=== PATIENT | female | born 1935 | race Caucasian/White ===

== ENCOUNTER → 2023-05-12 09:14 | Outpatient (REF) | payer MEDICARE, OTHER, SELFPAY ==
[2023-05-12 11:07] LABS: Albumin 4.6 g/dl (3.5-5.0); Blood Urea Nitrogen 34 mg/dl (7-17); Calcium 9.6 mg/dl (8.4-10.2); Carbon Dioxide 26 mmol/L (22-30); Glucose 95 mg/dl (70-99); Phosphorus 4.4 mg/dl (2.5-4.5); Potassium 4.6 mmol/L (3.5-5.1); Sodium 137 mmol/L (135-145); eGFR 44.36
[2023-05-12 11:14] LABS: Chloride 100 mmol/L (98-107)
[2023-05-12 11:22] LABS: Protein/creatinine Ratio 0.3; Urine Protein 15 mg/dl
== END ==
LOC: REG 09:14
PROVIDERS: ATTENDING PHYSICIAN Internal Medicine; FAMILY PHYSICIAN Internal Medicine
DX: D50.9 Iron deficiency anemia, unspecified (principal); N17.9 Acute kidney failure, unspecified; D63.8 Anemia in other chronic diseases classified elsewhere
CPT/HCPCS: 36415; 80069; 82570; 84156

== ENCOUNTER → 2023-05-23 07:16 | Outpatient (REF) | payer MEDICARE, OTHER, SELFPAY ==
[2023-05-23 08:43] LABS: Erythrocyte Sed Rate 4 mm/hour (0-20)
[2023-05-23 08:53] LABS: % Eosinophils 3.2 % (0-6); % Immature Granulocytes 0.6 % (0-0.5); % Lymphocytes 14.5 % (20.5-51.1); % Monocytes 5.5 % (1.7-9.3); % Neutrophils 75.2 % (42.2-75.2); Absolute Basophils 0.1 10^3/uL (0-0.2); Absolute Eosinophils 0.3 10^3/uL (0-0.7); Absolute Immature Granulocytes 0.1 10^3/uL (0-0.05); Absolute Lymphocytes 1.3 10^3/uL (1.2-3.4); Absolute Monocytes 0.5 10^3/uL (0.1-0.6); Absolute Neutrophils 6.7 10^3/uL (1.4-6.5); Hematocrit 36.4 % (37.0-47.0); Hemoglobin 11.7 g/dL (12.0-16.0); Mean Corp Hgb Conc. 32.1 g/dL (33.0-37.0); Mean Corpuscular Hgb 26.7 pg (27.0-31.0); Mean Corpuscular Volume 83.1 fL (81.0-99.0); Mean Platelet Volume 8.9 fL (7.4-10.4); Nucleated Red Blood Cells % 0 %; Platelet Count 320 10^3/uL (130-400); Red Blood Cell Count 4.38 10^6/uL (4.20-5.40); Red Cell Dist. Width 13.4 % (11.5-14.5)
[2023-05-23 09:04] LABS: Microalbumin/creatinine Ratio 23.3 mg/g
[2023-05-23 09:07] LABS: ALT (SGPT) 18 U/L (0-35); AST (SGOT) 29 U/L (14-36); Albumin 4.7 g/dl (3.5-5.0); Alkaline Phosphatase 72 U/L (38-126); Blood Urea Nitrogen 32 mg/dl (7-17); Calcium 9.7 mg/dl (8.4-10.2); Carbon Dioxide 29 mmol/L (22-30); Chloride 101 mmol/L (98-107); Glucose 100 mg/dl (70-99); HDL Cholesterol 81 mg/dl; LDL Cholesterol, Calculated 141 mg/dl; Potassium 4.6 mmol/L (3.5-5.1); Sodium 136 mmol/L (135-145); Total Bilirubin 0.5 mg/dl (0.2-1.3); Total Cholesterol 248 mg/dl (50-199); Total Protein 7.5 g/dl (6.3-8.2); Triglyceride 130 mg/dl (10-149); Very Low Density Lipoprotein 26 mg/dl (0-30); eGFR 49.24
[2023-05-23 09:08] LABS: Glycohemoglobin (HgbA1c) 6.2 % (4.0-5.6)
== END ==
LOC: REG 07:16
PROVIDERS: ATTENDING PHYSICIAN Internal Medicine
DX: E11.22 Type 2 diabetes mellitus with diabetic chronic kidney disease (principal); N18.31 Chronic kidney disease, stage 3a; D63.8 Anemia in other chronic diseases classified elsewhere; G47.33 Obstructive sleep apnea (adult) (pediatric); M35.3 Polymyalgia rheumatica; K58.1 Irritable bowel syndrome with constipation
CPT/HCPCS: 36415; 80053; 80061; 82043; 82570; 83036; 85025; 85652

== ENCOUNTER → 2023-08-01 10:48 | Outpatient (REF) | payer MEDICARE, OTHER, SELFPAY ==
[2023-08-01 11:47] LABS: % Eosinophils 2.9 % (0-6); % Immature Granulocytes 0.3 % (0-0.5); % Lymphocytes 24.4 % (20.5-51.1); % Monocytes 6.4 % (1.7-9.3); Absolute Basophils 0.1 10^3/uL (0-0.2); Absolute Eosinophils 0.2 10^3/uL (0-0.7); Absolute Lymphocytes 1.4 10^3/uL (1.2-3.4); Absolute Monocytes 0.4 10^3/uL (0.1-0.6); Absolute Neutrophils 3.7 10^3/uL (1.4-6.5); Hematocrit 38.1 % (37.0-47.0); Hemoglobin 11.9 g/dL (12.0-16.0); Mean Corp Hgb Conc. 31.2 g/dL (33.0-37.0); Mean Corpuscular Hgb 26.2 pg (27.0-31.0); Mean Corpuscular Volume 83.9 fL (81.0-99.0); Mean Platelet Volume 8.6 fL (7.4-10.4); Nucleated Red Blood Cells % 0 %; Platelet Count 306 10^3/uL (130-400); Red Blood Cell Count 4.54 10^6/uL (4.20-5.40); Red Cell Dist. Width 13.8 % (11.5-14.5); White Blood Cell Count 5.8 10^3/uL (4.8-10.8)
[2023-08-01 12:50] LABS: Protein/creatinine Ratio 0.8; Urine Protein 14 mg/dl
[2023-08-01 12:54] LABS: Iron 95 ug/dl (37-170)
[2023-08-01 12:55] LABS: Microalbumin, Random Urine 1.3 mg/dl (0.6-1.7)
[2023-08-01 13:03] LABS: Percent Saturation 28 % (20-50); Total Iron Binding Capacity 338 ug/dl (265-497)
[2023-08-01 13:18] LABS: Ferritin 34.5 ng/ml (11.1-264.0)
== END ==
LOC: RAD 10:48
PROVIDERS: ATTENDING PHYSICIAN Internal Medicine; FAMILY PHYSICIAN Internal Medicine; OTHER PHYSICIAN Internal Medicine; REFERRING PHYSICIAN Nurse Practitioner
DX: M25.50 Pain in unspecified joint (principal); M25.60 Stiffness of unspecified joint, not elsewhere classified; N18.31 Chronic kidney disease, stage 3a; D64.9 Anemia, unspecified
CPT/HCPCS: 36415; 73130; 82043; 82570; 82728; 83540; 83550; 84156; 85025

== ENCOUNTER → 2023-08-04 12:46 | Outpatient (REF) | payer MEDICARE, OTHER, SELFPAY ==
[2023-08-04 14:54] LABS: C-Reactive Protein < 5.00 mg/L (0.0-10.00)
[2023-08-04 15:07] LABS: Erythrocyte Sed Rate 15 mm/hour (0-20)
[2023-08-07 08:56] LABS: CCP Antibody IgG/IgA 29 Units (0-19)
== END ==
LOC: REG 12:46
PROVIDERS: ATTENDING PHYSICIAN Internal Medicine; FAMILY PHYSICIAN Internal Medicine
DX: M25.50 Pain in unspecified joint (principal); M25.60 Stiffness of unspecified joint, not elsewhere classified
CPT/HCPCS: 36415; 85652; 86140; 86200; 86430

== ENCOUNTER → 2023-08-10 11:45 | Outpatient (REF) | payer MEDICARE, OTHER, SELFPAY ==
[2023-08-10 15:28] LABS: 24 Hour Urine Creatinine 0.512 gm/day (0.8-1.8); 24 Hour Urine Total Volume 2000 ml
[2023-08-13 08:38] LABS: 24 Hour Urine Total Volume 2000 mL; Ur Free Lambda Excretion/day 2.04 mg/d; Urine Collection Length 24 hr; Urine Free Kappa Excretion/Day 16.02 mg/d; Urine Free Kappa Light Chains 8.01 mg/L (0.00-32.90); Urine Free Lambda Light Chains 1.02 mg/L (0.00-3.79)
== END ==
LOC: REG 11:45
PROVIDERS: ATTENDING PHYSICIAN Internal Medicine
DX: D50.9 Iron deficiency anemia, unspecified (principal); N17.9 Acute kidney failure, unspecified
CPT/HCPCS: 81050; 82570; 83521; 84156; 86335

== ENCOUNTER → 2023-11-22 07:14 | Outpatient (REF) | payer MEDICARE, OTHER, SELFPAY ==
[2023-11-22 08:49] LABS: ALT (SGPT) 17 U/L (0-35); AST (SGOT) 28 U/L (14-36); Albumin 4.5 g/dl (3.5-5.0); Alkaline Phosphatase 62 U/L (38-126); Blood Urea Nitrogen 34 mg/dl (7-17); Calcium 9.8 mg/dl (8.4-10.2); Carbon Dioxide 28 mmol/L (22-30); Chloride 101 mmol/L (98-107); Glucose 102 mg/dl (70-99); Potassium 4.9 mmol/L (3.5-5.1); Sodium 138 mmol/L (135-145); Total Bilirubin 0.5 mg/dl (0.2-1.3); eGFR 49.24
[2023-11-22 09:16] LABS: % Basophils 1.1 % (0-2); % Eosinophils 3.3 % (0-6); % Immature Granulocytes 0.2 % (0-0.5); % Lymphocytes 21.4 % (20.5-51.1); % Monocytes 7.2 % (1.7-9.3); % Neutrophils 66.8 % (42.2-75.2); Absolute Basophils 0.1 10^3/uL (0-0.2); Absolute Eosinophils 0.2 10^3/uL (0-0.7); Absolute Lymphocytes 1.2 10^3/uL (1.2-3.4); Absolute Monocytes 0.4 10^3/uL (0.1-0.6); Absolute Neutrophils 3.6 10^3/uL (1.4-6.5); Hematocrit 34.5 % (37.0-47.0); Hemoglobin 11.2 g/dL (12.0-16.0); Mean Corp Hgb Conc. 32.5 g/dL (33.0-37.0); Mean Corpuscular Hgb 27.4 pg (27.0-31.0); Mean Corpuscular Volume 84.4 fL (81.0-99.0); Mean Platelet Volume 9.4 fL (7.4-10.4); Nucleated Red Blood Cells % 0 %; Platelet Count 266 10^3/uL (130-400); Red Blood Cell Count 4.09 10^6/uL (4.20-5.40); Red Cell Dist. Width 14.1 % (11.5-14.5); White Blood Cell Count 5.4 10^3/uL (4.8-10.8)
== END ==
LOC: REG 07:14
PROVIDERS: ATTENDING PHYSICIAN Internal Medicine
DX: N18.31 Chronic kidney disease, stage 3a (principal); D63.8 Anemia in other chronic diseases classified elsewhere; G47.33 Obstructive sleep apnea (adult) (pediatric); K58.1 Irritable bowel syndrome with constipation; I10 Essential (primary) hypertension; G62.89 Other specified polyneuropathies; R29.6 Repeated falls; Z00.00 Encounter for general adult medical examination without abnormal findings
CPT/HCPCS: 36415; 80053; 85025

== ENCOUNTER 2023-12-19 12:17 | Outpatient (RCR) | payer MEDICARE, OTHER, SELFPAY | END 2023-12-19 23:59 | disposition home or self-care (01) | LOC: RPT 12:17 | PROVIDERS: ATTENDING PHYSICIAN Internal Medicine; FAMILY PHYSICIAN Internal Medicine | DX: M62.89 Other specified disorders of muscle (principal); K59.00 Constipation, unspecified; Z73.6 Limitation of activities due to disability | CPT/HCPCS: 97163; 97530 ==

== ENCOUNTER → 2024-01-05 08:47 | Outpatient (REF) | payer MEDICARE, OTHER, SELFPAY | LOC: RAD 08:47 | PROVIDERS: ATTENDING PHYSICIAN Internal Medicine; FAMILY PHYSICIAN Internal Medicine | DX: M25.511 Pain in right shoulder (principal) | CPT/HCPCS: 73030 ==

== ENCOUNTER 2024-01-17 06:19 | Outpatient (RCR) | payer MEDICARE, OTHER, SELFPAY | END 2024-01-17 23:59 | disposition home or self-care (01) | LOC: RPT 06:19 | PROVIDERS: ATTENDING PHYSICIAN Internal Medicine; FAMILY PHYSICIAN Internal Medicine | DX: M62.89 Other specified disorders of muscle (principal); K59.00 Constipation, unspecified; Z73.6 Limitation of activities due to disability | CPT/HCPCS: 97110; 97140; 97530 ==

== ENCOUNTER 2024-01-24 08:56 | Outpatient (RCR) | payer MEDICARE, OTHER, SELFPAY | END 2024-01-24 10:46 | disposition home or self-care (01) | LOC: RPT 08:56 | PROVIDERS: ATTENDING PHYSICIAN Internal Medicine; FAMILY PHYSICIAN Internal Medicine | DX: M62.89 Other specified disorders of muscle (principal); K59.00 Constipation, unspecified; Z73.6 Limitation of activities due to disability | CPT/HCPCS: 97110; 97140; 97530 ==

== ENCOUNTER → 2024-01-26 12:26 | Outpatient (REF) | payer MEDICARE, OTHER, SELFPAY | LOC: WDC 12:26 | PROVIDERS: ATTENDING PHYSICIAN Internal Medicine | DX: Z12.31 Encounter for screening mammogram for malignant neoplasm of breast (principal) | CPT/HCPCS: 77063; 77067 ==

== ENCOUNTER → 2024-04-27 07:28 | Outpatient (REF) | payer MEDICARE, OTHER, SELFPAY ==
[2024-04-27 09:01] LABS: Urine Albumin 2+ (Neg - Trace); Urine Bilirubin Negative (Negative); Urine Character Clear (Clear); Urine Color Yellow; Urine Glucose Negative (Negative); Urine Ketone Negative (Negative); Urine Leukocyte 2+ (Negative); Urine Nitrite Negative (Negative); Urine Occult Blood 1+ (Negative); Urine Specific Gravity 1.015 (<1.030); Urine Urobilinogen Negative (Neg - 1+)
[2024-04-27 09:20] LABS: Urine Bacteria Few (Negative); Urine White Cell 0-2 /HPF (0-5)
[2024-04-27 09:57] LABS: Albumin 4.2 g/dl (3.5-5.0); Blood Urea Nitrogen 39 mg/dl (7-17); Calcium 9.3 mg/dl (8.4-10.2); Carbon Dioxide 31 mmol/L (22-30); Chloride 99 mmol/L (98-107); Glucose 102 mg/dl (70-99); Phosphorus 4.2 mg/dl (2.5-4.5); Potassium 4.6 mmol/L (3.5-5.1); Sodium 136 mmol/L (135-145); eGFR 48.94
== END ==
LOC: RAD 07:28
PROVIDERS: ATTENDING PHYSICIAN Internal Medicine Critical Care Medicine; FAMILY PHYSICIAN Internal Medicine; REFERRING PHYSICIAN Internal Medicine
DX: R06.02 Shortness of breath (principal); N18.31 Chronic kidney disease, stage 3a
CPT/HCPCS: 36415; 71046; 80069; 81003; 81015

== ENCOUNTER 2024-08-20 08:30 | Inpatient (IN) | payer MEDICARE, OTHER, SELFPAY ==
--- NOTE | 2024-07-23 14:13 | CM ---
Addendum entered by Reshma Coronel RN 08/21/24 12:34:
CM met with patient in room. Patient stated that she may stay with her son in [place], but is unsure at this time. Cm encouraged patient to stay with son for a short time post operatively. Patient will discuss with son.
PLAN: Home with VN, pending agency once patent decides where she will be staying.
Addendum entered by Reshma Coronel RN 08/06/24 13:05:
CM updated patient that [facility] will be available after surgery. Patient is agreeable and stated that she is relieved for the help. CM will remain available as needed.
Addendum entered by Reshma Coronel RN 08/06/24 13:03:
CM was updated that patient has been recommended for home VN. CM updated [facility] Admission RN.
Addendum entered by Reshma Coronel RN 08/02/24 15:06:
CM was updated by [facility] nursing that patient is concerned that she is unable to have a ride for outpatient PT after surgery. CM updated orthopedic PA with patient's concerns. CM will follow as needed.
Addendum entered by Reshma Coronel RN 07/25/24 15:03:
CM spoke with patient via live telephone. CM confirmed demographics. Patient lives alone, but stated that her son will be available to support her post -operatively. Patient stated that she had been known to [facility] in the past but is currently not on
service. Patient has a history of SNF placement and HD at [facility]. Patient uses a cane, walker and has a tub seat. Patient is active with her PCP. Patient uses [facility].
Patient has been know to [facility] PT.
Patient would be agreeable to VN on discharge.
PLAN: home [facility] vs. Outpatient PT.
Original Note:
CM left message.
[2024-08-03 14:07] LABS: Hematocrit 33.8 % (37.0-47.0); Hemoglobin 10.8 g/dL (12.0-16.0); Mean Corpuscular Hgb 26.7 pg (27.0-31.0); Mean Corpuscular Volume 83.5 fL (81.0-99.0); Mean Platelet Volume 8.9 fL (7.4-10.4); Platelet Count 288 10^3/uL (130-400); Red Blood Cell Count 4.05 10^6/uL (4.20-5.40); Red Cell Dist. Width 14.4 % (11.5-14.5); White Blood Cell Count 6.1 10^3/uL (4.8-10.8)
[2024-08-03 14:09] VITALS: BMI 22.6
[2024-08-03 14:19] LABS: ALT (SGPT) 22 U/L (0-35); AST (SGOT) 28 U/L (14-36); Albumin 4.7 g/dl (3.5-5.0); Alkaline Phosphatase 57 U/L (38-126); Blood Urea Nitrogen 29 mg/dl (7-17); Calcium 9.3 mg/dl (8.4-10.2); Carbon Dioxide 29 mmol/L (22-30); Chloride 103 mmol/L (98-107); Estimated Creatinine Clearance 33 ml/min; Glucose 84 mg/dl (70-99); Potassium 4.6 mmol/L (3.5-5.1); Sodium 138 mmol/L (135-145); Total Bilirubin 0.4 mg/dl (0.2-1.3); Total Protein 7.3 g/dl (6.3-8.2); eGFR 48.94
[2024-08-03 16:58] LABS: Iron 78 ug/dl (37-170)
[2024-08-03 17:08] LABS: Percent Saturation 25 % (20-50); Total Iron Binding Capacity 306 ug/dl (265-497)
[2024-08-07 08:06] VITALS: BMI 22.6
[2024-08-20] VITALS (13 sets, daily range): BP systolic 115–165; BP diastolic 49–77; PULSE 51; O2SAT 99; BMI 22.6
[2024-08-20] MEDS: TYLENOL 650 MG PO ×2 (09:08→19:35)
[2024-08-20] MEDS: BACTROBAN NASAL 1 GRAM NASAL (09:08)
[2024-08-20] MEDS: NORMOSOL-R/PLASMALYTE-A 1000 IV (09:16)
[2024-08-20] MEDS: ZOFRAN 4 MG IV ×2 (12:17→23:04)
--- NOTE | 2024-08-20 12:18 | W.PN.UPDATE ---
Update Note
Progress Note Update
L hip OA s/p L GIUSEPPE w/ Dr Cervantes 08/20/24
- s/p R TKa, 2016, and L TKA, [address] Cervantes
DVT prophylaxis - ASA, b/l venous foot pumps
- Plasma flow devices HIGHLY encouraged for outpt use
HTN - + parameters - monitor BP
PAF, no current OAC - monitor on tele
- Continue BB
RENATO, CPAP compliant - monitor O2
- IS
- Resume CPAP HS
CKD 3 - minimize nephrotoxins as able
GERD - continue Pepcid
Suspected chronic ileus
Colon polyps, excised, bowel perf
- Advise strict adherence to bowel regimen, hydration, early mobility
Anemia - repeat H&H in AM
HLD
History of biliary/gastrointestinal sepsis
Rheumatoid arthritis
Spinal stenosis with degenerative disc disease
Osteopenia
Remote polio
Remote tobacco abuse
Pt will benefit from VN, home PT and OT upon d/c
[2024-08-20] MEDS: SUBLIMAZE 25 MCG IV (12:53)
[2024-08-20] MEDS: ULTRAM 50 MG PO ×2 (12:54→21:12)
[2024-08-20] MEDS: NSS 1000 IV (13:00)
[2024-08-20] MEDS: NORVASC PO (15:00)
[2024-08-20] MEDS: VITAMIN D3 (cholecalciferol) PO (15:00)
[2024-08-20] MEDS: PLAQUENIL PO (15:00)
[2024-08-20] MEDS: TYLENOL PO (16:00)
[2024-08-20] MEDS: PEPCID 20 MG PO (17:25)
[2024-08-20] MEDS: ANCEF 5 IV (17:25)
[2024-08-20] MEDS: ASPIRIN 325 MG PO (17:25)
[2024-08-20] MEDS: SENOKOT 17.2 MG PO (19:35)
[2024-08-20] MEDS: DECADRON 4 MG PO (19:35)
[2024-08-20] MEDS: COLACE 100 MG PO (19:35)
[2024-08-20] MEDS: BACTROBAN 2% OINTMENT 1 APPLIC NASAL (20:52)
[2024-08-20] MEDS: NEURONTIN 300 MG PO (20:52)
[2024-08-20] MEDS: FLEXERIL 5 MG PO (22:05)
--- NOTE | 2024-08-20 23:13 | PTCARENOTE ---
pt with n/v 50 ml emesis while ambulating to the bathroom. zofran given see mar
[2024-08-21] VITALS (12 sets, daily range): BP systolic 88–145; BP diastolic 45–72; PULSE 68
[2024-08-21] MEDS: TYLENOL PO ×3 (00:52→23:04)
[2024-08-21] MEDS: ANCEF 5 IV (01:10)
[2024-08-21 07:20] LABS: Hematocrit 22.9 % (37.0-47.0); Hemoglobin 7.5 g/dL (12.0-16.0)
[2024-08-21] MEDS: NORVASC PO (08:18)
[2024-08-21] MEDS: VITAMIN D3 (cholecalciferol) 50 MCG PO (08:18)
[2024-08-21] MEDS: TYLENOL 650 MG PO ×4 (08:18→19:49)
[2024-08-21] MEDS: PLAQUENIL 300 MG PO (08:19)
[2024-08-21] MEDS: PEPCID 20 MG PO (08:20)
[2024-08-21] MEDS: BACTROBAN 2% OINTMENT 1 APPLIC NASAL ×2 (08:20→19:48)
[2024-08-21] MEDS: ASPIRIN 325 MG PO (08:20)
[2024-08-21] MEDS: DECADRON 4 MG PO ×2 (08:21→19:48)
[2024-08-21] MEDS: TOPROL XL PO (08:21)
[2024-08-21] MEDS: ULTRAM 50 MG PO ×3 (08:24→21:48)
[2024-08-21] MEDS: COLACE PO (08:32)
[2024-08-21] MEDS: MIRALAX PO (08:32)
[2024-08-21] MEDS: SENOKOT PO (08:32)
[2024-08-21 12:23] LABS: Hematocrit 22.6 % (37.0-47.0); Hemoglobin 7.5 g/dL (12.0-16.0)
[2024-08-21 12:40] LABS: Iron 46 ug/dl (37-170)
[2024-08-21 12:49] LABS: Percent Saturation 17 % (20-50); Total Iron Binding Capacity 266 ug/dl (265-497)
[2024-08-21 13:13] LABS: Ferritin 54.6 ng/ml (11.1-264.0)
[2024-08-21 13:44] LABS: Folate 7.3 ng/ml (2.76-20); Vitamin B12 618 pg/ml (239-931)
--- NOTE | 2024-08-21 14:32 | W.PN.ORTHO ---
Today's Communication / Plan
-
Monitor H&H after transfusion.
Work w/ PT and OT as able.
D/c when clinically stable.
Assessment
.
Distal Motor Intact: Yes
Dressing:
Small areas of old incisional bleeding. Dressing otherwise C/D/I.
Assessment:
L hip OA s/p Lydia self/ Dr Cervantes 08/20/24
- s/p R TKa, 2016, and L TKA, [address] Cervantes
DVT prophylaxis - ASA, b/l venous foot pumps
- Plasma flow devices HIGHLY encouraged for outpt use
HTN - + parameters - monitor BP
- Hypotensive post-op 2* anemia - will transfuse 2 units PRBCs w/ low dose Lasix in between to prevent fluid overload. Anemia panel pending. EBL 50 ml. Pt denies any abnormal bleeding pre-op
PAF, no current OAC - monitor on tele
- Continue BB
RENATO, CPAP compliant - monitor O2
- IS
- Resume CPAP HS
CKD 3 - minimize nephrotoxins as able
GERD - continue Pepcid
Suspected chronic ileus
Colon polyps, excised, bowel perf
- Advise strict adherence to bowel regimen, hydration, early mobility
Acute on chronic anemia - H&H in AM after 2 units PRBCs
HLD
History of biliary/gastrointestinal sepsis
Rheumatoid arthritis
Spinal stenosis with degenerative disc disease
Osteopenia
Remote polio
Remote tobacco abuse
Pt will benefit from VN, home PT and OT upon d/c
Plan
.
Surgery / Date: Lydia self/ Dr Cervantes 08/20/24
DVT Prophylaxis: Aspirin
Activity:
Out of bed.
PT/OT
Discharge Plan: Home w/ VN
Subjective
.
.:
Patient resting comfortably this AM.
Acute on chronic symptomatic anemia - will be transfused today.
Vital Signs and Labs
.
Vital Signs and Labs:
Lab Results
08/21/24 12:15
08/03/24 12:29
Temp Pulse Resp BP Pulse Ox
97.7 F 65 16 90/49 99
08/21/24 11:02 08/21/24 11:02 08/21/24 11:02 08/21/24 11:02 08/21/24 11:02
Non-invasive Hgb result: 10.1
Physical Exam
-
HEENT: No pallor, cyanosis, or jaundice. Throat clear.
NECK: Supple. No JVD.
RESPIRATORY: Lungs clear to auscultation.
CVS: S1, S2 normal. RRR.�
ABDOMEN: Soft, non-tender. No distension.
EXTREMITIES: Strength equal, no calf pain with palpation/dorsiflexion. Calves soft.
MED CARE MANAGER: AOx3. No focal deficits. military analyst grossly intact
[2024-08-21] MEDS: LASIX 10 MG IV (15:03)
--- NOTE | 2024-08-21 19:00 | PTCARENOTE ---
Pt transfused with 2 units PRBC's, no signs or symptoms of transfusion reaction noted. Pt resting comfortably, call tobias is within reach.
[2024-08-21] MEDS: COLACE 100 MG PO (19:48)
[2024-08-21] MEDS: SENOKOT 17.2 MG PO (19:48)
[2024-08-21] MEDS: FLEXERIL 5 MG PO (21:46)
[2024-08-21] MEDS: NEURONTIN 300 MG PO (21:46)
[2024-08-22 03:00] VITALS: BP 122/91
[2024-08-22] MEDS: TYLENOL 650 MG PO ×3 (03:40→12:05)
[2024-08-22 06:52] LABS: Hematocrit 27.7 % (37.0-47.0); Hemoglobin 9.4 g/dL (12.0-16.0)
[2024-08-22 07:55] VITALS: BP 165/69
--- NOTE | 2024-08-22 08:20 | PN.CDI ---
CDI
- -
CDI:
Physician Documentation Request
Admit Date: 08/20/24 08:30
Dear Orthopedic Team,
Please review the following and provide your response in the progress notes.
Clinical Indicators:
Pt admitted for L hip OA s/p L GIUSEPPE
08/21 Orthopedics Note: ' Hypotensive post-op 2* anemia - will transfuse 2 units PRBCs...Acute on chronic symptomatic anemia - will be transfused today.'
Laboratory Tests
08/03/24 08/21/24 08/21/24
12:29 06:48 12:15
Hgb 10.8 L 7.5 L 7.5 L
Based on the above, could you clarify, in your progress note, which of the following is the most likely type of anemia you are evaluating, monitoring and/or treating?
Acute blood loss anemia with baseline chronic anemia (Specify type)
Anemia of chronic disease - indicate if, CKD or other
Other
Use of terms such as suspected, likely, concern for, or probable (associated with a specific diagnosis that is being evaluated, monitored, or treated as if it exists) are acceptable and can be coded in the inpatient setting, when documented at the
time of discharge.
Thank you,
Caitlin Pike RN, BSN
CDI Specialist
[place] [facility]
Please use your independent medical judgment in providing your response.
--- NOTE | 2024-08-22 09:04 | W.PN.ORTHO ---
Today's Communication / Plan
-
Work w/ PT and OT.
D/c later today if remaining clinically stable.
Assessment
.
Distal Motor Intact: Yes
Dressing:
Scant areas of bleeding along incision line.
Assessment:
L hip OA s/p Lydia self/ Dr Cervantes 08/20/24
- s/p R TKa, 2016, and L TKA, [address] Cervantes
DVT prophylaxis - ASA, b/l venous foot pumps
- Plasma flow devices HIGHLY encouraged for outpt use
HTN - + parameters - BPs now stable s/p PRBCs
PAF, no current OAC - maintaining NSR/asymptomatic sinus tanner on tele
- Continue BB
RENATO, CPAP compliant - O2 stable on RA
- IS
- Resumed CPAP HS
CKD 3 - minimize nephrotoxins as able
GERD - continue Pepcid
Suspected chronic ileus
Colon polyps, excised, bowel perf
- Advise strict adherence to bowel regimen, hydration, early mobility
Acute on chronic anemia - multifactorial d/t CKD, borderline low iron
- Hgb 7.5 POD 1 -> 9.4 today. Asymptomatic and hemodynamically stable.
- Minimal bleeding noted on dressing
- Would likely benefit from iron supplement upon d/c
HLD
History of biliary/gastrointestinal sepsis
Rheumatoid arthritis
Spinal stenosis with degenerative disc disease
Osteopenia
Remote polio
Remote tobacco abuse
Pt will benefit from VN, home PT and OT upon d/c
Plan
.
Surgery / Date: Lydia self/ Dr Cervantes 08/20/24
DVT Prophylaxis: Aspirin
Activity:
Out of bed.
PT/OT
Discharge Plan: Home w/ VN
Subjective
.
.:
Patient resting comfortably in bed.
Hgb notably improved after PRBCs yesterday.
Denies any acute complaints.
Eager for potential d/c today.
Vital Signs and Labs
.
Vital Signs and Labs:
Lab Results
08/22/24 05:41
08/03/24 12:29
Temp Pulse Resp BP Pulse Ox
98.4 F 81 18 165/69 98
08/22/24 07:55 08/22/24 07:55 08/22/24 07:55 08/22/24 07:55 08/22/24 07:55
Non-invasive Hgb result: 10.1
Physical Exam
-
HEENT: No pallor, cyanosis, or jaundice. Throat clear.
NECK: Supple. No JVD.
RESPIRATORY: Lungs clear to auscultation.
CVS: S1, S2 normal. RRR.�
ABDOMEN: Soft, non-tender. No distension.
EXTREMITIES: Strength equal, no calf pain with palpation/dorsiflexion. Calves soft.
DEFENCE FORCE SENIOR OFFICER: AOx3. No focal deficits. developmental education instructor grossly intact
--- NOTE | 2024-08-22 09:30 | CM ---
Addendum entered by Reshma Coronel RN 08/22/24 09:37:
CM spoke with patient's son who stated that he will stay with patient in her home to provide supervision. CM updated [facility] Admission RN with discharge plan. CM updated orthopedic PA with plan.
Original Note:
CM reviewed medical record. CM met with patient in room. Patient stated that she plans to stay with her son for three days and then return home. CM inquired if patient's son could stay with her in her home and then [facility] would be able to work with
her in her own setting.
CM left message for patient's son to discuss plan.
--- NOTE | 2024-08-22 09:31 | W.DS.TRANS ---
DC Summary - [facility]
-
Discharge Instructions:
Discharge Diagnosis/Procedures L hip OA s/p L GIUSEPPE w/ Dr Cervantes 08/20/24
Diet Regular
Activity With Walker,As tolerated
Additional Activity Adequate hydration, minimize opioids, and wear
TEDs stockings to prevent low blood pressure/
dizziness
Driving Restrictions Not until seen by your Dr
Bathing Restrictions OK to Shower
Other Services PT,VN,OT
Wound Care Dressing to be removed 1 week post-surgery.
Mar to be removed at 2 week follow-up with
surgeon's office.
Instructions:
Stand-Alone Forms: Total Hip/Knee Replacement D/C
Changes to Home Medications: Yes
Discharge Medications:
DC Medications w/original date entered in [employer]
polyvinyl alcohol-povidone (PF) 1.4 %-0.6 % eye drops in a dropperette (Refresh Classic (PF)) 1 drops BOTH EYES QIDPRN PRN dryness 02/01/21
biotin 1 dose PO DAILY Supplement 08/02/24
calcium 600 mg (as carbonate)-vit D3 20 mcg (800 unit) chewable tablet (Caltrate plus D) 1 tab PO DAILY Supplement 08/02/24
cholecalciferol (vitamin D3) 50 mcg (2,000 unit) tablet (Vitamin D3) 50 mcg PO DAILY Supplement 08/02/24
denosumab 60 mg/mL subcutaneous syringe (Prolia) 60 mg SC [id number] Autoimmune Disorder 08/02/24
famotidine 20 mg tablet 20 mg PO DAILY Gastrointestinal Issue 08/02/24
gabapentin 300 mg capsule 300 mg PO HS Neurological Condition 08/02/24
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
dexamethasone 4 mg tablet 4 mg PO BID inflammation #6 tabs 08/03/24
mupirocin 2 % topical ointment 1 applic topical BID infection prevention #1 tube 08/03/24
ondansetron 4 mg disintegrating tablet 4 mg PO Q6H PRN n/v #20 tabs 08/03/24
tramadol 50 mg tablet 50 mg PO Q6H PRN 1 tab moderate pain, 2 if severe #30 tabs 08/03/24
polyethylene glycol 3350 17 gram oral powder packet (Miralax) 17 g PO DAILY Gastrointestinal Issue 08/20/24
acetaminophen 325 mg tablet 650 mg (2 x 325 mg) PO Q4HWA #60 tabs 08/22/24
amlodipine 2.5 mg tablet 2.5 mg PO DAILY Blood Pressure #1 tab 08/22/24
aspirin 325 mg tablet 325 mg PO DAILY #30 tabs 08/22/24
cyclobenzaprine 10 mg tablet 5 mg (1/2 x 10 mg) PO HSPRN PRN sleep #1 tab 08/22/24
docusate sodium 100 mg capsule 100 mg PO BID #30 caps 08/22/24
ferrous sulfate 325 mg (65 mg iron) tablet,delayed release 325 mg PO DAILY anemia #30 tabs 08/22/24
metoprolol succinate 50 mg tablet,extended release 24 hr 50 mg PO DAILY Blood Pressure #1 tab 08/22/24
sennosides 8.6 mg tablet (Jennifer-johnie) 17.2 mg (2 x 8.6 mg) PO BID #30 tabs 08/22/24
Home Medication Changes
dexamethasone 4 mg tablet 4 mg PO BID inflammation #6 tabs 08/03/24
mupirocin 2 % topical ointment 1 applic topical BID infection prevention #1 tube 08/03/24
ondansetron 4 mg disintegrating tablet 4 mg PO Q6H PRN n/v #20 tabs 08/03/24
tramadol 50 mg tablet 50 mg PO Q6H PRN 1 tab moderate pain, 2 if severe #30 tabs 08/03/24
acetaminophen 325 mg tablet 650 mg (2 x 325 mg) PO Q4HWA #60 tabs 08/22/24
aspirin 325 mg tablet 325 mg PO DAILY #30 tabs 08/22/24
cyclobenzaprine 10 mg tablet 5 mg (1/2 x 10 mg) PO HSPRN PRN sleep #1 tab 08/22/24
docusate sodium 100 mg capsule 100 mg PO BID #30 caps 08/22/24
ferrous sulfate 325 mg (65 mg iron) tablet,delayed release 325 mg PO DAILY anemia #30 tabs 08/22/24
sennosides 8.6 mg tablet (Jennifer-johnie) 17.2 mg (2 x 8.6 mg) PO BID #30 tabs 08/22/24
Pending Results: No
[2024-08-22] MEDS: PLAQUENIL 300 MG PO (09:43)
[2024-08-22] MEDS: MIRALAX 17 GRAMS PO (09:43)
[2024-08-22] MEDS: COLACE 100 MG PO (09:43)
[2024-08-22] MEDS: VITAMIN D3 (cholecalciferol) 50 MCG PO (09:45)
[2024-08-22] MEDS: DECADRON 4 MG PO (09:45)
[2024-08-22] MEDS: TOPROL XL 50 MG PO (09:45)
[2024-08-22] MEDS: SENOKOT 17.2 MG PO (09:45)
[2024-08-22] MEDS: PEPCID 20 MG PO (09:45)
[2024-08-22] MEDS: NORVASC 2.5 MG PO (09:45)
[2024-08-22] MEDS: ASPIRIN 325 MG PO (09:46)
[2024-08-22] MEDS: ULTRAM 50 MG PO (09:51)
[2024-08-22 10:21] VITALS: BP 117/60
[2024-08-22 11:17] VITALS: BP 154/62; PULSE 67
[2024-08-22 11:20] VITALS: BP 156/73
== END 2024-08-22 13:02 | disposition home health service (06) | DRG 470 ==
LOC: 2 SOUTH 08:30
PROVIDERS: Physician Assistant; ADMITTING PHYSICIAN Specialist; FAMILY PHYSICIAN Internal Medicine; REFERRING PHYSICIAN Internal Medicine
PROC: 0SRB0JA Replacement of Left Hip Joint with Synthetic Substitute, Uncemented, Open Approach (ICD-10-PCS; 2024-08-20)
PROC: 30233N1 Transfusion of Nonautologous Red Blood Cells into Peripheral Vein, Percutaneous Approach (ICD-10-PCS; 2024-08-21)
DX: M16.12 Unilateral primary osteoarthritis, left hip (principal); K56.7 Ileus, unspecified; K21.9 Gastro-esophageal reflux disease without esophagitis; D63.1 Anemia in chronic kidney disease; I12.9 Hypertensive chronic kidney disease with stage 1 through stage 4 chronic kidney disease, or unspecified chronic kidney disease; N18.30 Chronic kidney disease, stage 3 unspecified; I48.0 Paroxysmal atrial fibrillation; G47.33 Obstructive sleep apnea (adult) (pediatric); Z86.0100 Personal history of colon polyps, unspecified; E78.5 Hyperlipidemia, unspecified; M06.9 Rheumatoid arthritis, unspecified; G14 Postpolio syndrome; M48.00 Spinal stenosis, site unspecified; M85.80 Other specified disorders of bone density and structure, unspecified site; Z87.891 Personal history of nicotine dependence; Z90.711 Acquired absence of uterus with remaining cervical stump
CPT/HCPCS: 36415; 73502; 80053; 82607; 82728; 82746; 83036; 83540; 83550; 85014; 85018; 85027; 86850; 86900; 86901; 86920; 87070; 93005; 97110; 97116; 97163; 97167; 97530; 97535; C1713; C1776; P9016

== ENCOUNTER 2024-09-01 16:52 | Inpatient (IN) | payer MEDICARE, OTHER, SELFPAY ==
[2024-09-01] VITALS (12 sets, daily range): BP systolic 131–207; BP diastolic 71–108; PULSE 70; BMI 23.7; BMI 22.7
--- NOTE | 2024-09-01 12:50 | ED.GENMED ---
History of Present Illness
General
Chief Complaint: Abdominal Symptoms
Time Seen by Provider: 09/01/24 12:37
History of Present Illness
History of Present Illness:
88-year-old female presents to the emergency department for evaluation of constipation. She underwent left hip surgery on August 20 and has been taking opiate pain medications as well as stool softener since that time. Her last bowel movement was 7
days ago. She is continuing to pass flatus and small bits of liquid stool. Has been using MiraLAX for the past 3 days without improvement. Reports nausea and vomiting and lower abdominal distention in the past 24 hours. Unable to take her blood
pressure medicines secondary to vomiting. She reports generally poor p.o. intake for the past several days due to abdominal bloating
Past History
Past History
ED Past Medical History: Other (Obstructive sleep apnea, fibromyalgia, osteoarthritis, osteopenia, spinal stenosis, cataracts, degenerative disc disease, cystocele, rectocele)
ED Past Surgical History: Gynecological (Hysterectomy), Urological (Bladder sling) and Other (Bowel perforation 2015)
Social History
Tobacco: Former smoker
Alcohol: None
Drug: None
Personal: Single
Living: alone
Review of Systems
Review of Systems
Allergies reviewed?: Yes
All Other Systems: ROS reviewed and negative except as documented in HPI and ROS
Phy Exam
Physical Exam
Physical Exam:
GEN: Well appearing, NAD, WDWN
HEENT: Oral mucosa moist, no scleral icterus
Cardiac: Regular rate
Lung: No respiratory distress, no tachypnea
Abdomen: Soft, nontender, nondistended
MSK: No gross deformity or injuries
Skin: Good color, no pallor or jaundice, no rashes
Neuro: AO x3, moves all extremities freely
Psych: Calm, cooperative
Course
Orders/Labs/Results
Orders:
Orders
09/01/24 12:56
CR Abdomen - 1 View Urgent
Reason For Exam: constipation/abd distention
09/01/24 13:48
CR Chest - 2 Views Urgent
Comment:
Reason For Exam: abd pain
09/01/24 14:50
0.9% Sodium Chloride 1000 ml [Nss] 1,000 ml IV BOLUS
09/01/24 14:56
Complete Blood Count/No Diff Urgent
Comprehensive Metabolic Panel Urgent
Serum Osmolality Urgent
Comment: ADD ON
09/01/24 15:22
Add On- LAB Urgent
Tests Added?: serum osmolality
09/01/24 15:41
Urinalysis Reflex To Culture Urgent
Date Specimen was Collected: 09/01/24
Time Specimen was Collected: 15:27
Urine Microscopic Reflex Cult Urgent
Urine Sodium Urgent
Date Specimen was Collected: 09/01/24
Time Specimen was Collected: 15:27
Urine Culture Urgent
MICHELL Source: U
Specimen Description:
Date Specimen was Collected: 09/01/24
Time Specimen was Collected: 15:27
09/01/24 15:58
Admit/Transfer Patient As Directed
Co-Sign Provider:
Level of Care: Inpatient admission
Assign to:: Medical/Surgical
Physician / Group: christine
Diagnosis: constipation
Reason for Hospitalization: constipation
Expected length of stay greater than two midnights?: Yes
ELOS- Estimated Length of Stay in days: 2
I certify the patient meets the requirements for IP care: Yes
Code Status As Directed
Resuscitation Status: Do not resuscitate
Reached after discussion with pt or family/Healthcare POA: Yes
DNR Bracelet Application ONCE
PRN Pain Medication Management As Directed
May give lesser potent ordered pain med per pt: Yes
preference::
Protocol:: Medication orders for pain may be administered in a
manner that supports deferring to patient preference
when the pt is:
- Requesting an ordered lesser potent pain medication.
Least to most potent pain medications are defined
as: acetaminophen < NSAID < tramadol < opioids
(morphine, oxycodone, hydromorphone).
- Requesting a lesser dose of the same medication IF
ORDERED.
- Requesting a less intrusive route of administration
if both routes are prescribed by the provider (PO <
IV).
09/01/24 16:00
Magnesium Citrate [Citroma] 300 ml PO ONCE ONE
Abnormal Lab Results
09/01/24 09/01/24
14:56 15:41
RBC 3.89 L 10^6/uL
(4.20-5.40)
Hgb 11.0 L g/dL
(12.0-16.0)
Hct 31.8 L %
(37.0-47.0)
Sodium 125 L mmol/L
(135-145)
Chloride 90 L mmol/L
(98-107)
Glucose 126 H mg/dl
(70-99)
Serum Osmolality 260 L mOsm/kg
(275-300)
Ur Occult Blood Reflex 1+ A
(Negative)
Leukocyte Esterase Rfl 1+ A
(Negative)
Urine RBC 3-6 A /HPF
(0-2)
Urine Bacteria (Reflex) Few A
(Negative)
Urine Sodium 152 H mmol/L
(30-90)
09/01/24 14:56
09/01/24 14:56
Vital Signs
Initial and Last Documented VS:
Initial Vital Signs
Pulse Ox
98
09/01/24 12:11
Last Documented Vital Signs
Temp Pulse Resp BP Pulse Ox
98.7 F 63 16 207/88 99
09/01/24 12:14 09/01/24 16:00 09/01/24 16:00 09/01/24 16:00 09/01/24 16:00
MDM/Problems Addressed
MDM/Problems Addressed:
88-year-old female presenting for constipation as well as generalized weakness. Constipation is most likely on the basis of recent increased use of opiates for pain after hip surgery however weakness is likely on the basis of hyponatremia due to
poor p.o. intake in the past few days due to her GI distress. Given the significant drop in her overall weakness we will admit to the medical service for further management
*Pulse Oximetry
Patient hypoxic: no
Comment: 100% room air
*Critical Care Note
Total Time (30-74mins, 75-104mins- exclusive of procedures): Not Applicable
ED Attending Note
-
Portions of this chart may have been created with voice recognition software.� Occasional wrong word or��sound alike� substitutions may have occurred due to the inherent limitations of voice recognition software.
Discharge Plan
Departure
Patient Disposition: Admit
Date of Disposition: 09/01/24
Time of Disposition: 15:34
Admit to: Med/Surg
Presentation/result/management discussed w/ accepting MD/DO: Hospitalist
Patient with high blood pressure during this ER visit?: Yes
Discharge Problem:
Acute hyponatremia
Prescriptions:
No Action
Refresh Classic (PF) 10 DROPS dropperette
1 drops BOTH EYES QIDPRN PRN (Reason: dryness)
famotidine 20 mg Tablet
20 mg PO DAILY
gabapentin 300 mg Capsule
300 mg PO HS
hydroxychloroquine 200 mg Tablet
300 mg PO DAILY
cholecalciferol (vitamin D3) [Vitamin D3] 50 mcg (2,000 unit) Tablet
50 mcg PO DAILY
Prolia 60 mg/mL Syringe
60 mg SC [id number]
Caltrate 600 plus D 600 mg-20 mcg (800 unit) Tablet,Chewable
1 tab PO DAILY
biotin
1 dose PO DAILY
Rx Instructions:
Patient did not know dose
mupirocin 2 % ointment
1 applic topical BID Qty: 1 0RF
Patient Comments:
started treatment tuesday08/17/24 and completed BID, last took at home 08/19/24 in evening
tramadol 50 mg tablet
50 mg PO Q6H PRN (Reason: 1 tab moderate pain, 2 if severe) Qty: 30 0RF
Rx Instructions:
ongoing therapy
dexamethasone 4 mg tablet
4 mg PO BID Qty: 6 0RF
Rx Instructions:
take with food
post-op use only
ondansetron 4 mg tablet,disintegrating
4 mg PO Q6H PRN (Reason: n/v) Qty: 20 0RF
Rx Instructions:
take 1/2h b/f pain med if recurrent nausea
allow to dissolve in mouth w/o water
polyethylene glycol 3350 [Miralax] 17 gram Powder In Packet
17 g PO DAILY
ferrous sulfate 325 mg (65 mg iron) tablet,delayed release (DR/EC)
325 mg PO DAILY Qty: 30 0RF
aspirin 325 mg Tablet
325 mg PO DAILY Qty: 30 0RF
Rx Instructions:
Take daily x4 weeks for blood clot prevention.
cyclobenzaprine 10 mg Tablet
5 mg PO HSPRN PRN (Reason: sleep) Qty: 1 0RF
Rx Instructions:
Cut tab in 1/2 (= 5 mg) while on post-surgical narcotics.
docusate sodium 100 mg Capsule
100 mg PO BID Qty: 30 0RF
sennosides [Jennifer-johnie] 8.6 mg Tablet
17.2 mg PO BID Qty: 30 0RF
acetaminophen 325 MG tablet
650 mg PO Q4HWA Qty: 60 0RF
Rx Instructions:
DO NOT exceed >4000 mg daily.
metoprolol succinate 50 MG tablet extended release 24 hr
50 mg PO DAILY Qty: 1 0RF
Rx Instructions:
HOLD IF systolic blood pressure <100 while on Tramadol
amlodipine 2.5 mg Tablet
2.5 mg PO DAILY Qty: 1 0RF
Rx Instructions:
HOLD IF systolic blood pressure <130 while on Tramadol.
Referrals:
Mike Miguel MD [Family Provider, Internal Medicine]
Interventions
Interventions:
*Risk Screen - Suicide Last Done: 09/01/24 12:14
*General Assessment Last Done: 09/01/24 12:14
*Neglect/Abuse Screening Last Done: 09/01/24 12:14
*ED- Fall Risk Assessment Last Done: 09/01/24 12:14
OI-Cemnvp-Kmulpwluit Assessment Last Done: 09/01/24 12:14
Discharge Date and Time
Print Language: PORTUGUESE
[2024-09-01] MEDS: NSS 1000 IV (14:55)
[2024-09-01 15:07] LABS: Hematocrit 31.8 % (37.0-47.0); Mean Corp Hgb Conc. 34.6 g/dL (33.0-37.0); Mean Corpuscular Hgb 28.3 pg (27.0-31.0); Mean Corpuscular Volume 81.7 fL (81.0-99.0); Mean Platelet Volume 8.4 fL (7.4-10.4); Platelet Count 369 10^3/uL (130-400); Red Blood Cell Count 3.89 10^6/uL (4.20-5.40); Red Cell Dist. Width 14.2 % (11.5-14.5); White Blood Cell Count 10.8 10^3/uL (4.8-10.8)
[2024-09-01 15:18] LABS: ALT (SGPT) 23 U/L (0-35); AST (SGOT) 24 U/L (14-36); Albumin 3.9 g/dl (3.5-5.0); Alkaline Phosphatase 71 U/L (38-126); Blood Urea Nitrogen 14 mg/dl (7-17); Calcium 8.8 mg/dl (8.4-10.2); Carbon Dioxide 28 mmol/L (22-30); Chloride 90 mmol/L (98-107); Estimated Creatinine Clearance 50 ml/min; Glucose 126 mg/dl (70-99); Potassium 3.7 mmol/L (3.5-5.1); Sodium 125 mmol/L (135-145); Total Bilirubin 0.9 mg/dl (0.2-1.3); Total Protein 6.5 g/dl (6.3-8.2); eGFR > 60.00
[2024-09-01 15:50] LABS: Urine Albumin Negative (Neg - Trace); Urine Bilirubin Negative (Negative); Urine Character Clear (Clear); Urine Color Yellow; Urine Glucose Negative (Negative); Urine Ketone Negative (Negative); Urine Leukocyte 1+ (Negative); Urine Nitrite Negative (Negative); Urine Occult Blood 1+ (Negative); Urine Urobilinogen Negative (Neg - 1+)
[2024-09-01 15:50] LABS: Osmolality Serum 260 mOsm/kg (275-300)
--- NOTE | 2024-09-01 16:03 | HPS.HSE ---
Family Physician
-
Family Physician: Mike Miguel
Chief Complaint
-
abdominal discomfort
History of Present Illness
88-year-old female past medical history of constipation, paroxysmal atrial fibrillation, hypertension, osteoarthritis, obstructive sleep apnea, CKD 3, chronic ileus, colon polyps, chronic anemia, rheumatoid arthritis, presenting for constipation.
Patient has a history of constipation. She underwent left hip surgery on August 20 has been taking stool softener since that time. Has not been taking any significant number of opiates. Her last bowel movement 7 days ago. She is continue to pass
gas and small bits of liquid stool. Has been using MiraLAX for the past 3 days without improvement. Has nausea and vomiting and lower abdominal distention for the past 24 hours. Unable to take blood pressure medication secondary to vomiting.
Denies smoking or alcohol use.
Medical History
Past Medical History
Past Medical History: Reports Other (constipation, paroxysmal atrial fibrillation, hypertension, osteoarthritis, obstructive sleep apnea, CKD 3, chronic ileus, colon polyps, chronic anemia, rheumatoid arthritis,)
Past Surgical History: Reports Other ( Gynecological (Hysterectomy), Urological (Bladder sling) and Other (Bowel perforation 2015))
Social History
Tobacco: Non-smoker
Alcohol: None
Drug: None
Family History
Family History: Not pertinent
Allergies / Home Medications
Allergies reflects when Allergies were last updated in [facility].
Home Medications with original date entered in [facility]
Allergy/Medication List:
Allergies
Allergy/AdvReac Type Severity Reaction Status Date / Time
codeine Allergy Nausea / Verified 09/01/24 12:14
Vomiting
morphine Allergy Severe Verified 09/01/24 12:14
Nausea /
Vomiting
dust mites Allergy coughing Uncoded 09/01/24 12:14
Home Medications
polyvinyl alcohol-povidone (PF) 1.4 %-0.6 % eye drops in a dropperette (Refresh Classic (PF)) 1 drops BOTH EYES QIDPRN PRN dryness 02/01/21
biotin 1 dose PO DAILY Supplement 08/02/24
calcium 600 mg (as carbonate)-vit D3 20 mcg (800 unit) chewable tablet (Caltrate plus D) 1 tab PO DAILY Supplement 08/02/24
cholecalciferol (vitamin D3) 50 mcg (2,000 unit) tablet (Vitamin D3) 50 mcg PO DAILY Supplement 08/02/24
denosumab 60 mg/mL subcutaneous syringe (Prolia) 60 mg SC [id number] Autoimmune Disorder 08/02/24
famotidine 20 mg tablet 20 mg PO DAILY Gastrointestinal Issue 08/02/24
gabapentin 300 mg capsule 300 mg PO HS Neurological Condition 08/02/24
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
dexamethasone 4 mg tablet 4 mg PO BID inflammation #6 tabs 08/03/24
mupirocin 2 % topical ointment 1 applic topical BID infection prevention #1 tube 08/03/24
ondansetron 4 mg disintegrating tablet 4 mg PO Q6H PRN n/v #20 tabs 08/03/24
tramadol 50 mg tablet 50 mg PO Q6H PRN 1 tab moderate pain, 2 if severe #30 tabs 08/03/24
polyethylene glycol 3350 17 gram oral powder packet (Miralax) 17 g PO DAILY Gastrointestinal Issue 08/20/24
acetaminophen 325 mg tablet 650 mg (2 x 325 mg) PO Q4HWA #60 tabs 08/22/24
amlodipine 2.5 mg tablet 2.5 mg PO DAILY Blood Pressure #1 tab 08/22/24
aspirin 325 mg tablet 325 mg PO DAILY #30 tabs 08/22/24
cyclobenzaprine 10 mg tablet 5 mg (1/2 x 10 mg) PO HSPRN PRN sleep #1 tab 08/22/24
docusate sodium 100 mg capsule 100 mg PO BID #30 caps 08/22/24
ferrous sulfate 325 mg (65 mg iron) tablet,delayed release 325 mg PO DAILY anemia #30 tabs 08/22/24
metoprolol succinate 50 mg tablet,extended release 24 hr 50 mg PO DAILY Blood Pressure #1 tab 08/22/24
sennosides 8.6 mg tablet (Jennifer-johnie) 17.2 mg (2 x 8.6 mg) PO BID #30 tabs 08/22/24
Review of Systems
-
History Source: Patient
A 12 point ROS was completed and negative except as noted: Yes
Constitutional: Reports No Symptoms
EENT: Reports No Symptoms
Respiratory: Reports No Symptoms
Cardiac: Reports No Symptoms
Abdomen/GI: Reports See HPI
: Reports No Symptoms
Musculoskeletal: Reports No Symptoms
Skin: Reports No Symptoms
Neurological: Reports No Symptoms
Endocrine: Reports No Symptoms
Hematologic/Lymphatic: Reports No Symptoms
Psych: Reports No Symptoms
Physical Exam
Vital Signs
Vital Signs
Temp Pulse Resp BP Pulse Ox
98.7 F 63 16 195/80 99
09/01/24 12:14 09/01/24 15:45 09/01/24 16:00 09/01/24 15:41 09/01/24 16:00
Physical Exam
General: Well Developed, Well Nourished and No Apparent Distress
HEENT: NormoCephalic, Moist mucous membranes and Atraumatic
Respiratory: Clear
Cardiac: S1/S2 and Regular Rhythm; No Murmur or Rub
GI: Soft, Non Tender, Normal Bowel Sounds, Tender (diffusely ) and Distended; No Organomegaly
Rectal: Deferred by Provider
Musculoskeletal: No Clubbing, No Cyanosis and No Edema
Skin: No Rash
Neuro: Nonfocal/grossly intact
Laboratory Results
-
09/01/24 14:56
09/01/24 14:56
Laboratory Results
Total Bilirubin 0.9 mg/dl (0.2-1.3) 09/01/24 14:56
AST 24 U/L (14-36) 09/01/24 14:56
ALT 23 U/L (0-35) 09/01/24 14:56
Alkaline Phosphatase 71 U/L (38-126) 09/01/24 14:56
Data Reviewed
-
Lab Data: Labs Reviewed by me
Old Records: Reviewed
Impression/Plan
-
IMPRESSION:
PLAN:
# Worsening of chronic constipation secondary to recent surgery
-Abdominal x-ray shows small volume colonic stool, particularly in the right colon
- Continue MiraLAX twice daily
-Mag citrate now
-Dulcolax PRN
- Consider enema if no improvement
- Clear liquid diet
# Hyponatremia secondary to vomiting/ decreased solute intake/recent surgery
- Sodium 125
- IV fluids given
# Uncontrolled hypertension secondary to pain
-Blood pressure up to 190s
- As needed hydralazine
Recent left hip surgery
Paroxysmal atrial fibrillation
Essential hypertension
- Continue amlodipine
- Continue metoprolol
Osteoarthritis
Obstructive sleep apnea
Chronic anemia
CKD 3
- Renal function at baseline
GERD
Chronic ileus
Colon polyps
Chronic anemia
Rheumatoid arthritis
DNR/DNI
DVT prophylaxis�heparin
Clear liquid diet
[2024-09-01 16:09] LABS: Urine Bacteria Few (Negative)
[2024-09-01 16:11] LABS: Urine Sodium 152 mmol/L (30-90)
[2024-09-01] MEDS: TOPROL XL 50 MG PO (18:36)
[2024-09-01] MEDS: HEPARIN 5000 UNITS SC (20:18)
[2024-09-01] MEDS: MIRALAX 17 GRAMS PO (20:18)
[2024-09-01] MEDS: TYLENOL 650 MG PO (20:21)
[2024-09-01] MEDS: DULCOLAX 5 MG PO (20:24)
[2024-09-01] MEDS: NEURONTIN 300 MG PO (20:24)
[2024-09-01] MEDS: ZOFRAN 4 MG IV (20:55)
[2024-09-01] MEDS: APRESOLINE 5 MG IV (23:26)
[2024-09-02] MEDS: COMPAZINE 5 MG IV (00:26)
[2024-09-02] MEDS: FLEET PHOSPHATE ENEMA-ADULT 135 ML RECTAL (00:26)
--- NOTE | 2024-09-02 00:38 | PTCARENOTE ---
Addendum entered by Apolonia Thornton 09/02/24 05:22:
pt with three loose, small to moderate sized BM after enema administered at 0030. will continue to monitor.
Original Note:
pt c/o persistent nausea with multiple episodes of emesis after IV zofran administered at 2100. [employer] made aware, new orders for rectal fleet enema and IV compazine. plan of care ongoing.
[2024-09-02] MEDS: FLEXERIL 10 MG PO (01:44)
[2024-09-02 01:52] VITALS: BP 169/73
[2024-09-02 04:04] VITALS: BP 173/72
[2024-09-02] MEDS: APRESOLINE 10 MG IV ×2 (04:29→15:17)
[2024-09-02 05:30] VITALS: BP 115/67
[2024-09-02 06:36] LABS: % Basophils 0.3 % (0-2); % Eosinophils 0.3 % (0-6); % Immature Granulocytes 0.7 % (0-0.5); % Lymphocytes 3.5 % (20.5-51.1); % Monocytes 5.1 % (1.7-9.3); % Neutrophils 90.1 % (42.2-75.2); Absolute Immature Granulocytes 0.1 10^3/uL (0-0.05); Absolute Lymphocytes 0.4 10^3/uL (1.2-3.4); Absolute Monocytes 0.6 10^3/uL (0.1-0.6); Absolute Neutrophils 10.6 10^3/uL (1.4-6.5); Hematocrit 32.6 % (37.0-47.0); Hemoglobin 11.2 g/dL (12.0-16.0); Mean Corp Hgb Conc. 34.4 g/dL (33.0-37.0); Mean Corpuscular Hgb 27.3 pg (27.0-31.0); Mean Corpuscular Volume 79.5 fL (81.0-99.0); Mean Platelet Volume 8.3 fL (7.4-10.4); Nucleated Red Blood Cells % 0 %; Platelet Count 358 10^3/uL (130-400); Red Cell Dist. Width 13.8 % (11.5-14.5); White Blood Cell Count 11.8 10^3/uL (4.8-10.8)
[2024-09-02 06:38] LABS: ALT (SGPT) 26 U/L (0-35); AST (SGOT) 29 U/L (14-36); Albumin 3.9 g/dl (3.5-5.0); Alkaline Phosphatase 77 U/L (38-126); Blood Urea Nitrogen 16 mg/dl (7-17); Calcium 8.8 mg/dl (8.4-10.2); Carbon Dioxide 27 mmol/L (22-30); Chloride 90 mmol/L (98-107); Estimated Creatinine Clearance 50 ml/min; Glucose 140 mg/dl (70-99); Potassium 2.9 mmol/L (3.5-5.1); Sodium 125 mmol/L (135-145); Total Protein 6.4 g/dl (6.3-8.2); eGFR > 60.00
--- NOTE | 2024-09-02 07:44 | W.PN.HOSP.TC ---
Today's Communication/Plan
-
Bisacodyl suppository
Replace potassium
Assessment / Plan
Assessment / Plan
Impression:
88-year-old female past medical history of constipation, paroxysmal atrial fibrillation, hypertension, osteoarthritis, obstructive sleep apnea, CKD 3, chronic ileus, colon polyps, chronic anemia, rheumatoid arthritis, presenting for constipation.
Patient has a history of constipation. She underwent left hip surgery on August 20 has been taking stool softener since that time. Has not been taking any significant number of opiates. Her last bowel movement 7 days ago. She is continue to pass
gas and small bits of liquid stool. Has been using MiraLAX for the past 3 days without improvement. Has nausea and vomiting and lower abdominal distention for the past 24 hours. Unable to take blood pressure medication secondary to vomiting.
Assessment/plan:
Worsening of chronic constipation secondary to recent surgery
-Abdominal x-ray shows small volume colonic stool, particularly in the right colon
- Continue MiraLAX twice daily
-Mag citrate
-Dulcolax PRN
09/02
Patient cannot tolerate enema.
Ordered suppository
Hyponatremia secondary to vomiting/ decreased solute intake/recent surgery
- Sodium 125
-Continue IVF
Hypokalemia.
Replace and keep monitor
Uncontrolled hypertension secondary to pain
-Blood pressure up to 190s
- As needed hydralazine
09/02
improved, Continue amlodipine/ metoprolol
Recent left hip surgery
PT OT consult
Paroxysmal atrial fibrillation
Currently sinus rhythm.
Continue metoprolol
CODE STATUS: DNR/DNI
DVT prophylaxis: heparin
Diet: Regular diet
Disposition: Bisacodyl suppository
Replace potassium
Total time spent on today's encounter was 65 minutes which included time spent in counseling the patient/family regarding diagnosis and treatment plan as listed above, goals of care, and symptom management. Case was discussed with nursing staff,
specialists, and care coordinators/case management. All labs and imaging personally reviewed by me. Remainder the time spent in detailed review of previous records, lab data, imaging, and other medical provider documentation.
Anticipated Discharge: 24 - 48 hours
Subjective/Interval History
-
Date of Service: September 02, 2024
Patient had very small bowel movements, noted to have low potassium, ordered replacement.
Otherwise no chest pain or shortness of breath.
Objective Data
-
Labs:
Laboratory Results
09/02/24
05:55
WBC 11.8 H
Hgb 11.2 L
Hct 32.6 L
Plt Count 358
Sodium 125 L
Potassium 2.9 L
Chloride 90 L
Carbon Dioxide 27
BUN 16
Creatinine 0.7
Glucose 140 H
Calcium 8.8
Total Bilirubin 1.0
AST 29
ALT 26
Alkaline Phosphatase 77
Vital Signs:
Vital Signs
Temp Pulse Resp BP Pulse Ox
98.5 F 63 18 115/67 97
09/01/24 23:20 09/02/24 05:30 09/01/24 23:20 09/02/24 05:30 09/01/24 23:41
I&O
09/01/24 09/02/24 09/03/24
06:59 06:59 06:59
Intake Total 120 / 120
Balance 120 / 120
Physical Exam
-
General: Well Developed, Well Nourished, No Apparent Distress and Comfortable
HEENT: Normocephalic, Atraumatic, Moist Mucous Membranes, No Ptosis, PERRLA and Nose Appears Normal
Respiratory: Clear to Auscultation and Non Labored Respirations
Cardiac: Regular Rhythm and S1/S2
Breast: Deferred by me
GI: Soft, Nontender, Nondistended and Normal Bowel Sounds
Genito-urinary: No Costovertebral Tender
Musculoskeletal: No Clubbing, No Cyanosis and No Edema
Skin: Warm
Neuro: Awake, Alert, Oriented, AO x 3 and No Motor Deficits
Psych: Calm
Data Reviewed
-
Diagnostic Radiology: Image personally visualized and interpreted and Report Reviewed by me
CT Scan: Image personally visualized and interpreted and Report Reviewed by me
Ultrasound: Image personally visualized and interpreted and Report Reviewed by me
MRI: Image personally visualized and interpreted and Report Reviewed by me
Medical Tests (Nuc Med, Echo etc): Image personally visualized and interpreted and Report Reviewed by me
Labs: Labs Reviewed by me
Old Records: Reviewed
[2024-09-02 08:00] VITALS: BP 154/60
[2024-09-02] MEDS: ASPIRIN 325 MG PO (08:20)
[2024-09-02] MEDS: NORVASC 2.5 MG PO (08:20)
[2024-09-02] MEDS: KCL 160 MEQ IV (08:20)
[2024-09-02] MEDS: PLAQUENIL 300 MG PO (08:20)
[2024-09-02] MEDS: HEPARIN 5000 UNITS SC ×2 (08:21→20:05)
[2024-09-02] MEDS: MIRALAX 17 GRAMS PO ×2 (08:21→20:05)
[2024-09-02] MEDS: PRED FORTE 1% EYE DROPS 1 DROP BOTH EYES (08:21)
[2024-09-02] MEDS: DULCOLAX 10 MG RECTAL (11:22)
[2024-09-02 15:00] VITALS: BP 184/76
--- NOTE | 2024-09-02 16:27 | CM ---
on site manager reviewed patient's chart and met with patient and patient lives alone in a 2nd floor condo with 14 steps to enter, patient is independent with adl's and ambulation, no dme, patient is current with [facility], home with [facility] when stable.
PCP: Dr Miguel
Pharmacy: [facility] in [place].
[2024-09-02] MEDS: TOPROL XL 50 MG PO (17:11)
[2024-09-02] MEDS: MELATONIN 5 MG PO (21:07)
[2024-09-02] MEDS: NEURONTIN 300 MG PO (21:07)
[2024-09-02 22:51] VITALS: PULSE 70
[2024-09-03] VITALS (7 sets, daily range): BP systolic 116–187; BP diastolic 65–87; O2SAT 98; BMI 22.1
[2024-09-03] MEDS: FLEXERIL 10 MG PO (00:39)
[2024-09-03 06:28] LABS: Hematocrit 34.5 % (37.0-47.0); Hemoglobin 11.9 g/dL (12.0-16.0); Mean Corp Hgb Conc. 34.5 g/dL (33.0-37.0); Mean Corpuscular Hgb 27.9 pg (27.0-31.0); Mean Corpuscular Volume 80.8 fL (81.0-99.0); Mean Platelet Volume 8.2 fL (7.4-10.4); Platelet Count 373 10^3/uL (130-400); Red Blood Cell Count 4.27 10^6/uL (4.20-5.40); Red Cell Dist. Width 14.2 % (11.5-14.5); White Blood Cell Count 10.7 10^3/uL (4.8-10.8)
[2024-09-03 06:47] LABS: Blood Urea Nitrogen 21 mg/dl (7-17); Calcium 9.2 mg/dl (8.4-10.2); Carbon Dioxide 27 mmol/L (22-30); Chloride 91 mmol/L (98-107); Estimated Creatinine Clearance 44 ml/min; Glucose 129 mg/dl (70-99); Potassium 3.1 mmol/L (3.5-5.1); Sodium 128 mmol/L (135-145); eGFR > 60.00
[2024-09-03] MEDS: ASPIRIN 325 MG PO (07:51)
[2024-09-03] MEDS: MIRALAX 17 GRAMS PO (07:52)
[2024-09-03] MEDS: PLAQUENIL 300 MG PO (07:52)
[2024-09-03] MEDS: HEPARIN 5000 UNITS SC ×2 (07:53→19:06)
[2024-09-03] MEDS: NORVASC 2.5 MG PO (07:53)
[2024-09-03] MEDS: PRED FORTE 1% EYE DROPS 1 DROP BOTH EYES (07:55)
--- NOTE | 2024-09-03 08:18 | W.PN.UPDATE ---
Update Note
Progress Note Update
88-year-old female who is status post left total hip arthroplasty [address] Cervantes admitted secondary to lethargy and constipation; noted to have hyponatremia and currently admitted. She reports some bleeding/drainage about her left hip
for which she was previously seen in the office but otherwise reports pain is relatively well-controlled. Leg length is symmetrical. No significant pain with gentle range of motion. There is a late stage ecchymosis about the thigh and soft tissue
underlying swelling either hematoma versus aroma. Recommend continued inpatient physical therapy with posterior hip precautions for a total of at least 6 weeks with assist devices continue DVT prophylaxis for total of 4 weeks from date of surgery.
[2024-09-03] MEDS: KCL 40 MEQ PO (08:45)
--- NOTE | 2024-09-03 09:22 | VNURNOTE ---
Chart reviewed.� Patient is current with [facility] nursing.� Will continue to follow hospital course and DC plans.
--- NOTE | 2024-09-03 10:36 | W.PN.HOSP.TC ---
Today's Communication/Plan
-
GI consult
CT pending
Assessment / Plan
Assessment / Plan
Assessment:
Abdominal distention with nausea/vomiting
Possible Ileus with constipation in setting of hyponatremia (also previously on narcotics)
- Xray: with small volume stool
- no improvement with bowel regimen
- CT with PO contrast pending
- GI consulted
Acute hypovolemic hyponatremia related to vomiting/decreased solute intake/recent surgery
- continue IVF; monitor BMP
Hypokalemia
- Replace and keep monitor
Essential HTN with urgency
- continue Amlodipine/Metoprolol
Recent left hip surgery
- PT/OT; posterior hip precautions for a total of at least 6 weeks with assist devices
- DVT ppx daily x 4 weeks from surgical date. While in hospital, continue SC heparin, at dc resume back ASA 325mg
Paroxysmal atrial fibrillation
- continue Metoprolol
DVT ppx: SC heparin
Code: DNR/DNI
Anticipated Discharge: > 48 hours
Subjective/Interval History
-
Date of Service: September 03, 2024
reports abd distention, only loose BMs associated with enemas
Objective Data
-
Labs:
Laboratory Results
09/03/24
05:39
WBC 10.7
Hgb 11.9 L
Hct 34.5 L
Plt Count 373
Sodium 128 L
Potassium 3.1 L
Chloride 91 L
Carbon Dioxide 27
BUN 21 H
Creatinine 0.8
Glucose 129 H
Calcium 9.2
Vital Signs:
Vital Signs
Temp Pulse Resp BP Pulse Ox
97.8 F 69 18 116/66 100
09/03/24 07:00 09/03/24 10:29 09/03/24 07:00 09/03/24 10:29 09/03/24 07:00
I&O
09/02/24 09/03/24 09/04/24
06:59 06:59 06:59
Intake Total 120 / 120 120 / 120
Balance 120 / 120 120 / 120
Physical Exam
-
General: No Apparent Distress
HEENT: Normocephalic and Atraumatic
Respiratory: Negative Wheezes
Cardiac: Regular Rhythm and S1/S2
GI: Nontender and Distended
Genito-urinary: No Costovertebral Tender
Musculoskeletal: No Edema
Neuro: AO x 3
Psych: Calm
Data Reviewed
-
Total Time Spent with Patient (in minutes): 45
Labs: Labs Reviewed by me
--- NOTE | 2024-09-03 10:37 | VNURNOTE ---
Director Service met with patient to discuss [facility] nurse/therapy, visits, schedule and homebound status. Patient is agreeable and understands that visits at home will be 2-3 x per week to assess and teach medical management.
Patient has contact information. [facility]2 days after discharge from .
[facility] referral completed in [facility].
[2024-09-03] MEDS: OMNIPAQUE 50 ML PO (10:56)
--- NOTE | 2024-09-03 12:49 | CON.GI ---
Addendum entered and electronically signed by Julissa Hopkins MD 09/03/24 20:24:
I saw and examined the patient.
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
Comment: 88-year-old female with history of hypertension, paroxysmal A-fib, rheumatoid arthritis, chronic renal insufficiency, previous abdominal surgeries including bladder sling and rectocele repair, who had elective hip replacement surgery 08/20
now presenting with abdominal discomfort/distention and constipation with not able to have a bowel movement in the last 1 week. Patient has chronic constipation and uses MiraLAX and Dulcolax as needed. On admission, she was noted to have
hyponatremia and also hypokalemia. Patient passing some flatus today but no bowel movements.
On admission, abdominal x-ray showing small volume of stool in the right colon and nonobstructive pattern, CT scan of the abdomen and pelvis today showing distended cecum with gas and air-fluid level from liquid feces measuring about 8.7 cm liquid
feces also noted in the ascending and proximal to mid transverse colon with mild gaseous distention of the transverse colon, moderate distention of the 2nd and 3rd segment of the duodenum with fluid and gas resulting in air-fluid level in the fourth
segment of duodenum does not definitely appear to cross the midline possibly suggesting malrotation.
- Abdominal distention and not able to have bowel movements, some flatus, rule out ileus versus partial small bowel obstruction
She did receive enemas during this hospital visit without much effect.
Hyponatremia and hypokalemia could also exacerbate ileus.
No nausea or vomiting, hold off on NG tube for now.
NPO. IV fluids
Monitor and correct electrolytes
Get abdominal x-ray again tomorrow
If symptoms continue, consider more bowel follow-through/surgical evaluation.
Will follow-up
Original Note:
Consultation
-
Date/Time Consultation Requested: 09/03/24 1020
Date/Time Consultation Performed: 09/03/24 1250
Requesting Provider: Eduardo Rhoades MD
Performing Provider: EVELIA Mullins, Julissa Hopkins MD
Reason for Consultation: constipation
Medical History
Chief Complaint / HPI
Chief Complaint: constiatoion
History of Present Illness:
Pt is a 88yo with hx afib, HTN, CKD, RA, constipation, osteoarthritis, sleep apnea, prior ileus, colon polyps, anemia, stercoral colitis, bladder sling, rectocele repair, bowel perforation treated medically , spinal stenosis with onset of
constipation. Pt had elective hip surgery 08/20 and has been on stool softeners since that time without improvement and last stool 7 days ago. Pt with flatus and small pieces of stool. On admission pt also with Na 125 and drop in K to 2.9. Abd X
ray with small volume of colonic stools right colon. She admits to some initial narcotics but not recent prior to admission. She also admits to decreased appetite with recent wt loss. She has chronic constipation with use of Miralax and also
used Dulcolax as few times last week with some diarrhea. She also admits to bloating. She otherwise denies issues with dysphagia, hematemesis, or rectal bleeding. Last colonoscopy around 2014 at [facility] with + polyps. No prior EGD.
Denies NSAID use except recent ASA for hip surgery.
Past Medical History
Past Medical History: Arrhythmias (PAF), HTN, Renal Failure (CKD) and Other (constipation, osteoarthritis, sleep apnea, ileus, colon polyps, anemia, rheumatoid arthritis , stercoral colitis, colon polyps, spinal stenosis )
Past Surgical History: Gynecological (hysterectomy), Orthopedic (TKA, thumb surgery), Urological (bladder sling) and Other (bowel perforation treated medically, rectocele repair, bladder sling )
Social History
Tobacco: Non-Smoker
Alcohol: None
Drug: None
Living: Alone
Employment: Retired
Family History
Family History: Other (no family hx GI problems)
Allergies / Home Medications
Allergy/AdvReac Type Severity Reaction Status Date / Time
codeine Allergy Nausea / Verified 09/01/24 12:14
Vomiting
morphine Allergy Severe Verified 09/01/24 12:14
Nausea /
Vomiting
dust mites Allergy coughing Uncoded 09/01/24 12:14
�Medication �Instructions �Recorded
gabapentin 300 mg capsule 300 mg PO HS Neurological Condition 08/02/24
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
polyethylene glycol 3350 17 gram 17 g PO DAILY Gastrointestinal 08/20/24
oral powder packet (Miralax) Issue
amlodipine 2.5 mg tablet 2.5 mg PO DAILY Blood Pressure #1 08/22/24
tab
aspirin 325 mg tablet 325 mg PO DAILY #30 tabs 08/22/24
acetaminophen 650 mg 650 mg PO HSPRN PRN mild pain 09/01/24
tablet,extended release
cyclobenzaprine 10 mg tablet 10 mg PO HSPRN PRN sleep 09/01/24
metoprolol succinate 50 mg 50 mg PO QPM Blood Pressure 09/01/24
tablet,extended release 24 hr
prednisolone acetate 1 % eye 1 drp BOTH EYES DAILY Eye Condition 09/01/24
drops,suspension
docusate sodium 100 mg capsule 100 mg PO BID STOOL SOFTENER 09/02/24
Review of Systems
-
History Source: Patient and Family
Constitutional: Reports Weight Loss
EENT: Reports No Symptoms
Respiratory: Reports No Symptoms
Cardiac: Reports No Symptoms
Abdomen/GI: Reports Abdominal Pain (with distention ), Nausea, Vomiting and Constipated (acute on chronic )
: Reports No Symptoms
Musculoskeletal: Reports Other (recent hip surgery )
Skin: Reports No Symptoms
Neurological: Reports Weakness
Endocrine: Reports No Symptoms
Hematologic/Lymphatic: Reports No Symptoms
Vital Signs
Temp Pulse Resp BP Pulse Ox
97.8 F 69 18 116/66 100
09/03/24 07:00 09/03/24 10:29 09/03/24 07:00 09/03/24 10:29 09/03/24 07:00
Physical Exam
Exam
General: Well Nourished and Other (some distress with small amount of vomiting after contrast given for CT )
HEENT: Normocephalic
Respiratory: Clear
Cardiac: Regular Rhythm
GI: Soft, Tender (diffuse mild ) and Distended
Musculoskeletal: No Clubbing and No Cyanosis
Skin: Warm and Dry
Neuro: Awake, Alert and AO x 3
Psych: Calm
Results
WBC 10.7 10^3/uL (4.8-10.8) 09/03/24 05:39
Hgb 11.9 g/dL (12.0-16.0) L 09/03/24 05:39
Hct 34.5 % (37.0-47.0) L 09/03/24 05:39
MCV 80.8 fL (81.0-99.0) L 09/03/24 05:39
Plt Count 373 10^3/uL (130-400) 09/03/24 05:39
Absolute Neuts (auto) 10.6 10^3/uL (1.4-6.5) H 09/02/24 05:55
Sodium 128 mmol/L (135-145) L 09/03/24 05:39
Potassium 3.1 mmol/L (3.5-5.1) L 09/03/24 05:39
Chloride 91 mmol/L (98-107) L 09/03/24 05:39
Carbon Dioxide 27 mmol/L (22-30) 09/03/24 05:39
BUN 21 mg/dl (7-17) H 09/03/24 05:39
Creatinine 0.8 mg/dL (0.6-1.0) 09/03/24 05:39
Calcium 9.2 mg/dl (8.4-10.2) 09/03/24 05:39
Total Bilirubin 1.0 mg/dl (0.2-1.3) 09/02/24 05:55
AST 29 U/L (14-36) 09/02/24 05:55
ALT 26 U/L (0-35) 09/02/24 05:55
Alkaline Phosphatase 77 U/L (38-126) 09/02/24 05:55
Diagnostic Image Results:
09/03/24 --CT A/p pending
09/01/24- abd film
Small volume colonic stool, particularly in the right colon.
09/01/24 CXR
No acute cardiopulmonary process.
2020 CT Abd/pelvis Wo Iv Cont
IMPRESSION: Markedly limited study without intravenous contrast and with relative paucity of oral contrast.
Small bilateral pleural effusions with accompanying bilateral lower lobe subsegmental atelectasis. Cannot exclude bilateral lower lobe pneumonia.
Old granulomatous disease.
Air is seen in some mildly prominent loops of small bowel and some fluid and air seen throughout majority of large bowel without significant colonic distention, pattern of which could represent ileus.
Overall decreased colonic stool comparison to prior study. Redundant/overlapping sigmoid colon containing stool, limited without intravenous contrast. Stercoral colitis involving the sigmoid colon cannot be excluded. No free air.
Mild diffuse relative high attenuation of the cortex of the kidneys bilaterally which could represent 'delayed nephrogram' effect correlating with known markedly decreased renal function and recent prior intravenous contrast administration.
Additional nonurgent findings, as detailed above.
01/2021 CR Abdomen - 1 View
Distention of small and large bowel, air-filled. Findings may represent adynamic ileus or partial colonic obstruction.
Prior GI Procedures:
EGD: none
Colonoscopy: last 2014 [facility] recalls polyps
Assessment / Plan
-
Pt is a 88yo with hx afib, HTN, CKD, RA, constipation, osteoarthritis, sleep apnea, prior ileus, colon polyps, anemia, stercoral colitis, bladder sling, rectocele repair, bowel perforation treated medically , spinal stenosis with onset of
constipation. Pt had elective hip surgery 08/20 and has been on stool softeners since that time without improvement and last stool 7 days ago. Pt with flatus and small pieces of stool. On admission pt also with Na 125 and drop in K to 2.9. Abd X
ray with small volume of colonic stools right colon. She admits to some initial narcotics but not recent prior to admission. She also admits to decreased appetite with recent wt loss. She has chronic constipation with use of Miralax and also
used Dulcolax as few times last week with some diarrhea. She also admits to bloating. She otherwise denies issues with dysphagia, hematemesis, or rectal bleeding. Last colonoscopy around 2014 at [facility] with + polyps. No prior EGD.
Denies NSAID use except recent ASA for hip surgery.
-abdominal distention with nausea/vomiting after contrast
-acute on chronic constipation- prior to admission
-hyponatremia/hypokalemia
-recent hips surgery
-hx prior ileus
-hx colon perforation after resection of large polyps treated medically
-hx stercoral colitis
other med problems:
-afib
-HTN
-CKD
-RA
-osteoarthritis
-sleep apnea
-anemia
-bladder sling
-rectocele repair
PLAN:
etiology of symptoms related to ileus with hyponatremia/hypokalemia, obstructive issues, constiaption(though initial film with small stool burden) vs other
await CT
current nausea/vomiting for Zofran
pending CT finding may need NGT decompression
change to NPO
hold miralax
cont to correct electrolytes
pt not on narcotics
cont antiemetics as needed
-
-
Thank you for consultation and allowing me to participate in the patient's care. Please call the condenser operator GI physician during the after hours with any questions or concerns.
[2024-09-03] MEDS: ZOFRAN 4 MG IV (13:46)
--- NOTE | 2024-09-03 14:40 | CM ---
Home with [facility] when stable.
Plan; Home with [facility]
[2024-09-03] MEDS: NSS 1000 IV (15:32)
[2024-09-03] MEDS: APRESOLINE 10 MG IV (16:13)
--- NOTE | 2024-09-03 16:39 | W.PN.UPDATE ---
Update Note
Progress Note Update
CT as noted -- will review with Dr. Hopkins
repeat exam with slight less distention and no further vomiting
cont to monitor
if any further vomiting may need NGT
discussed with patient she is trying to avoid NGT for now
cont NPO with close monitoring
CT A/p
Small sliding hiatal hernia. Mild distal esophageal circumferential wall thickening, raising possibility of mild esophagitis in the proper clinical setting.
No obstructive uropathy. Renal cysts.
Mobile intraperitoneal cecum. Cecal distention secondary to gas and liquid feces. Liquid feces in the ascending colon and transverse colon. Probable segmental underdistention of the distal transverse colon, though it would be difficult to exclude
the possibility of circumferential wall thickening. Recommend follow-up colonoscopy. Minor diverticulosis of the descending colon without acute diverticulitis.
Moderate distention of the second and third segments of the duodenum with fluid and gas noted resulting in an air-fluid level. The fourth segment of the duodenum does not definitely appear to cross the midline, and may extend inferiorly into the
pelvis suggesting malrotation. However, not found on prior examination. If the patient displays clinical symptoms of small bowel obstruction, small bowel follow-through study may be considered for further evaluation.
Nonspecific mild pelvic ascites.
[2024-09-03] MEDS: TOPROL XL 50 MG PO (17:01)
[2024-09-03] MEDS: AMBIEN 5 MG PO (20:59)
[2024-09-03] MEDS: MELATONIN 5 MG PO (21:00)
[2024-09-03] MEDS: NEURONTIN 300 MG PO (21:00)
[2024-09-04] MEDS: NSS 1000 IV ×3 (04:07→21:49)
[2024-09-04 05:30] LABS: Hemoglobin 12.7 g/dL (12.0-16.0); Mean Corp Hgb Conc. 34.3 g/dL (33.0-37.0); Mean Corpuscular Hgb 27.9 pg (27.0-31.0); Mean Corpuscular Volume 81.1 fL (81.0-99.0); Platelet Count 377 10^3/uL (130-400); Red Blood Cell Count 4.56 10^6/uL (4.20-5.40); Red Cell Dist. Width 14.2 % (11.5-14.5); White Blood Cell Count 9.9 10^3/uL (4.8-10.8)
[2024-09-04 05:53] LABS: Blood Urea Nitrogen 25 mg/dl (7-17); Calcium 9.2 mg/dl (8.4-10.2); Carbon Dioxide 24 mmol/L (22-30); Chloride 94 mmol/L (98-107); Estimated Creatinine Clearance 39 ml/min; Glucose 104 mg/dl (70-99); Potassium 3.6 mmol/L (3.5-5.1); Sodium 127 mmol/L (135-145); eGFR > 60.00
[2024-09-04 06:00] VITALS: BMI 22.2
[2024-09-04] MEDS: PRED FORTE 1% EYE DROPS 1 DROP BOTH EYES (07:21)
[2024-09-04] MEDS: ASPIRIN 325 MG PO (07:21)
[2024-09-04] MEDS: HEPARIN 5000 UNITS SC ×2 (07:22→19:15)
[2024-09-04] MEDS: PLAQUENIL 300 MG PO (07:23)
[2024-09-04] MEDS: NORVASC 2.5 MG PO (07:23)
[2024-09-04 07:44] VITALS: BP 167/79
--- NOTE | 2024-09-04 10:38 | W.PN.HOSP.TC ---
Today's Communication/Plan
-
await CRS and GI Evaluations
Assessment / Plan
Assessment / Plan
Assessment:
Abdominal distention with nausea/vomiting
Possible Ileus with constipation in setting of hyponatremia (also previously on narcotics)
- X-ray: with small volume stool
- CT: Small sliding hiatal hernia. Mild distal esophageal circumferential wall thickening, raising possibility of mild esophagitis in the proper clinical setting. No obstructive uropathy. Renal cysts. Mobile intraperitoneal cecum. Cecal distention
secondary to gas and liquid feces. Liquid feces in the ascending colon and transverse colon. Probable segmental underdistention of the distal transverse colon, though it would be difficult to exclude the possibility of circumferential wall
thickening. Recommend follow-up colonoscopy. Minor diverticulosis of the descending colon without acute diverticulitis. Moderate distention of the second and third segments of the duodenum with fluid and gas noted resulting in an air-fluid level.
The fourth segment of the duodenum does not definitely appear to cross the midline, and may extend inferiorly into the pelvis suggesting malrotation. However, not found on prior examination. If the patient displays clinical symptoms of small bowel
obstruction, small bowel follow-through study may be considered for further evaluation. Nonspecific mild pelvic ascites.
- NPO with sips of water
- CRS and GI consulted
Acute hypovolemic hyponatremia related to vomiting/decreased solute intake/recent surgery
- continue IVF; monitor BMP
- Hyponatremia workup
Hypokalemia
- Replace and keep monitor
Essential HTN with urgency
- continue Amlodipine/Metoprolol
Recent left hip surgery
- PT/OT; posterior hip precautions for a total of at least 6 weeks with assist devices
- DVT ppx daily x 4 weeks from surgical date. While in hospital, continue SC heparin, at dc resume back ASA 325mg
Paroxysmal atrial fibrillation
- continue Metoprolol
DVT ppx: SC heparin
Code: DNR/DNI
Anticipated Discharge: > 48 hours
Subjective/Interval History
-
Date of Service: September 04, 2024
resting comfortably, no complaints
no nausea/vomiting
Objective Data
-
Labs:
Laboratory Results
09/04/24
05:13
WBC 9.9
Hgb 12.7
Hct 37.0
Plt Count 377
Sodium 127 L
Potassium 3.6
Chloride 94 L
Carbon Dioxide 24
BUN 25 H
Creatinine 0.9
Glucose 104 H
Calcium 9.2
Vital Signs:
Vital Signs
Temp Pulse Resp BP Pulse Ox
97.7 F 70 14 167/79 99
09/04/24 07:44 09/04/24 07:44 09/04/24 07:44 09/04/24 07:44 09/04/24 07:44
I&O
09/03/24 09/04/24 09/05/24
06:59 06:59 06:59
Intake Total 120 / 120
Balance 120 / 120
Physical Exam
-
General: No Apparent Distress
HEENT: Normocephalic and Atraumatic
Respiratory: Negative Wheezes
Cardiac: Regular Rhythm and S1/S2
GI: Distended
Neuro: AO x 3
Psych: Calm
Data Reviewed
-
Total Time Spent with Patient (in minutes): 42
Labs: Labs Reviewed by me
[2024-09-04 10:55] VITALS: BP 175/86
[2024-09-04 11:02] LABS: CEA 1.52 ng/ml; TSH Reflex To Free T4 2.89 uIU/ml (0.47-4.68)
[2024-09-04] MEDS: PROTONIX IV 40 MG IV (11:26)
[2024-09-04] MEDS: NSS (PRESERVATIVE FREE) 10 ML IV (11:26)
--- NOTE | 2024-09-04 12:52 | CON.CRS ---
Consultation
-
Date/Time Consultation Requested: 09/04/24 @noon
Date/Time Consultation Performed: 09/04/24 @ 9:43
Requesting Provider: Eduardo Rhoades MD
Performing Provider: Pratik Mooney MD
Reason for Consultation: Abdominal distention
Medical History
-
Chief Complaint: Abdominal distention/constipation
History of Present Illness:
88-year-old female admitted on 09/01/24 with a history of chronic constipation, who presents with no significant bowel movement for 7 days. She was passing some flatus but developed abdominal distention, nausea and vomiting. At present she is passing
some flatus and loose bowel movements and her appetite has returned. She denies any abdominal pain. She underwent a total left hip arthroplasty on 08/20/24 and did receive narcotics initially. She has underwent a hysterectomy in the past and a repair
of a rectocele and cystocele in 2009. Her last colonoscopy was approximately 10 years ago and a large polyp was removed; she believes she sustained a perforation that was managed nonoperatively. In her medical record there is mention of a
colonoscopy at [place] 3 years ago.
Since admission she has remained afebrile and her vital signs are normal. She is in no acute distress. Her abdomen is softly distended and there is tympany in the upper quadrants. Her WBC is normal. A CT scan of the abdomen and pelvis on 09/03
revealed a mobile cecum left of the midline measuring in 8.7cm with some gaseous distention, no appreciable swirling of the mesentery, and mild gaseous distention of the mid transverse colon with collapse of the left colon and no obvious mass. The
second and third portions of the duodenum are distended but the small bowel is relatively collapsed. There was no free air. A plain abdominal radiograph from today reveals no abnormal distention of the stomach or small bowel with progression of the
oral contrast to the descending colon with moderate proximal colonic distention.
Past Medical History
Past Medical History: Arrhythmias (PAF), HTN, Renal Failure (CKD 3) and Other (osteoarhritis, fibromylagia, sleep apnea, rheumatoid arthritis)
Past Surgical History: Gynecological (hysterectomy), Orthopedic and Urological (bladder sling and rectocele repair 2009)
Social History
Tobacco: Non-Smoker
Alcohol: None
Personal: Single
Living: Alone
Family History
Family History: Reviewed & Not Pertinent
Allergies / Home Medications
Allergy/AdvReac Type Severity Reaction Status Date / Time
codeine Allergy Nausea / Verified 09/01/24 12:14
Vomiting
house dust mite Allergy COUGHING Verified 09/03/24 18:56
morphine Allergy Severe Verified 09/01/24 12:14
Nausea /
Vomiting
�Medication �Instructions �Recorded �Confirmed �Type
gabapentin 300 mg capsule 300 mg PO HS Neurological Condition 08/02/24 09/01/24 History
hydroxychloroquine 200 mg tablet 300 mg PO DAILY Autoimmune Disorder 08/02/24 09/01/24 History
polyethylene glycol 3350 17 gram 17 g PO DAILY Gastrointestinal 08/20/24 09/01/24 History
oral powder packet (Miralax) Issue
amlodipine 2.5 mg tablet 2.5 mg PO DAILY Blood Pressure #1 08/22/24 09/01/24 Rx
tab
aspirin 325 mg tablet 325 mg PO DAILY #30 tabs 08/22/24 09/01/24 Rx
acetaminophen 650 mg 650 mg PO HSPRN PRN mild pain 09/01/24 09/01/24 History
tablet,extended release
cyclobenzaprine 10 mg tablet 10 mg PO HSPRN PRN sleep 09/01/24 09/01/24 History
metoprolol succinate 50 mg 50 mg PO QPM Blood Pressure 09/01/24 09/01/24 History
tablet,extended release 24 hr
prednisolone acetate 1 % eye 1 drp BOTH EYES DAILY Eye Condition 09/01/24 09/01/24 History
drops,suspension
docusate sodium 100 mg capsule 100 mg PO BID STOOL SOFTENER 09/02/24 09/01/24 History
Review of Systems
-
History Source: Patient
All other systems: Negative unless noted
A 10 point review of systems was completed, and was negative except as per HPI.
Physical Exam
Vital Signs
Temp 97.7 F 09/04/24 07:44
Pulse 70 09/04/24 07:44
Resp Rate 14 09/04/24 07:44
Blood pressure 167/79 09/04/24 07:44
SaO2 99 09/04/24 07:44
09/03/24 09/04/24 09/05/24
06:59 06:59 06:59
Actual Weight 58.23 kg 58.712 kg
Body Mass Index (BMI) 22.2
Lab Results / Allergies
09/04/24 05:13
09/04/24 05:13
WBC 9.9 10^3/uL (4.8-10.8) 09/04/24 05:13
Hgb 12.7 g/dL (12.0-16.0) 09/04/24 05:13
Hct 37.0 % (37.0-47.0) 09/04/24 05:13
Plt Count 377 10^3/uL (130-400) 09/04/24 05:13
Abs Immat Gran (auto) 0.1 10^3/uL (0-0.05) H 09/02/24 05:55
Neutrophils % 90.1 % (42.2-75.2) H 09/02/24 05:55
Allergy/AdvReac Type Severity Reaction Status Date / Time
codeine Allergy Nausea / Verified 09/01/24 12:14
Vomiting
house dust mite Allergy COUGHING Verified 09/03/24 18:56
morphine Allergy Severe Verified 09/01/24 12:14
Nausea /
Vomiting
Physical Exam
General: Well Developed, Well Nourished, No Apparent Distress and Comfortable
HEENT: Anicteric
Respiratory: Clear
Cardiac: Regular Rhythm
GI: Soft, Non Tender and Distended
Musculoskeletal: No Edema
Skin: Warm
Neuro: Awake, Alert and Oriented
Data Reviewed
-
CT Scan: Image Personally Visualized and interpreted, Report Reviewed by me, Discussed with Physician and Discussed with Family
Labs: Labs Reviewed by me, Discussed with Patient and Discussed with Family
Assessment / Plan
-
Abdominal distention and constipation, worse after hip surgery 2 weeks ago. Although the cecum is distended it is not classic for a volvulus as there is no swirling of the mesentery and there is propagation of the contrast distally. I suspect she
has an ileus/colonic pseudobstruction but I recommend an obstruction be ruled out.
I reviewed the options with the patient and her son including a limited colonoscopy versus a gastrograffin enema. We discussed the risks and benefits of each. After a discussion with her treating physicians, the plan is for a contrast enema.
Hopefully the retained contrast will not be prohibitive. An enema prep will be ordered as I don't believe she will tolerate PO. Further management, including possible surgery discussed. All questions answered and they agree with the plan.
--- NOTE | 2024-09-04 13:12 | CM ---
Chart reviewed and patient is doing well with physical therapy plan is to home with [facility].
Plan; Home at discharge with [facility].
--- NOTE | 2024-09-04 13:34 | W.PN.UPDATE ---
Update Note
Progress Note Update
I spoke with Dr. Mooney. Plan is for a gastrogaffin enema tomorrow to further evaluate sigmoid. Will need two enemas, one tonight and one tomorrow morning. I called patient's room (no answer). I left a voicemail on patient's son, Luigi, phone with
the plan. NPO tomorrow for GE.
[2024-09-04 14:17] LABS: Osmolality Urine 483 mOsm/kg (300-900)
[2024-09-04 14:31] LABS: Urine Sodium 38 mmol/L (30-90)
[2024-09-04 14:42] VITALS: PULSE 71; O2SAT 99
[2024-09-04 15:30] VITALS: BP 166/69
[2024-09-04] MEDS: TOPROL XL 50 MG PO (17:08)
--- NOTE | 2024-09-04 17:22 | W.PN.GI.CBS2 ---
Today's Communication / Plan
-
gastrograffineenema twmr
Assessment / Plan
-
Pt is a 88yo with hx afib, HTN, CKD, RA, constipation, osteoarthritis, sleep apnea, prior ileus, colon polyps, anemia, stercoral colitis, bladder sling, rectocele repair, bowel perforation treated medically , spinal stenosis with onset of
constipation. Pt had elective hip surgery 08/20 and has been on stool softeners since that time without improvement and last stool 7 days ago. Pt with flatus and small pieces of stool. On admission pt also with Na 125 and drop in K to 2.9. Abd X
ray with small volume of colonic stools right colon. She admits to some initial narcotics but not recent prior to admission. She also admits to decreased appetite with recent wt loss. She has chronic constipation with use of Miralax and also
used Dulcolax as few times last week with some diarrhea. She also admits to bloating. She otherwise denies issues with dysphagia, hematemesis, or rectal bleeding. Last colonoscopy around 2014 at [facility] with + polyps. No prior EGD.
Denies NSAID use except recent ASA for hip surgery.
-abdominal distention with nausea/vomiting after contrast
-acute on chronic constipation- prior to admission
-hyponatremia/hypokalemia
-recent hips surgery
-hx prior ileus
-hx colon perforation after resection of large polyps treated medically
-hx stercoral colitis
other med problems:
-afib
-HTN
-CKD
-RA
-osteoarthritis
-sleep apnea
-anemia
-bladder sling
-rectocele repair
CT done 09/03 'Small sliding hiatal hernia. Mild distal esophageal circumferential wall thickening, raising possibility of mild esophagitis in the proper clinical setting.
No obstructive uropathy. Renal cysts.
Mobile intraperitoneal cecum. Cecal distention secondary to gas and liquid feces. Liquid feces in the ascending colon and transverse colon. Probable segmental underdistention of the distal transverse colon, though it would be difficult to exclude
the possibility of circumferential wall thickening. Recommend follow-up colonoscopy. Minor diverticulosis of the descending colon without acute diverticulitis.
Moderate distention of the second and third segments of the duodenum with fluid and gas noted resulting in an air-fluid level. The fourth segment of the duodenum does not definitely appear to cross the midline, and may extend inferiorly into the
pelvis suggesting malrotation. However, not found on prior examination. If the patient displays clinical symptoms of small bowel obstruction, small bowel follow-through study may be considered for further evaluation.
Nonspecific mild pelvic ascites.'
XR 09/04: 1. 'Dilute contrast material throughout the moderately distended ascending, transverse, and proximal descending colon.
2. No radiographic evidence for contrast material in the sigmoid colon or rectum.
3. No radiographic evidence for small bowel obstruction.
4. Severe multilevel lumbar discogenic degenerative disease.
5. Moderate right convex curvature of the midlumbar spine.'
Appreciate CRS input agree most likely ileus/pseudoobstruction (cecum only 8.6 cm) however need to r/o obstruction.
My concern with cscope if there is an obstruction increase risk of aspiration and if pseudoobstruction increase risk of perforation
Therefore plan is to proceed with gastrograffin enema tmwr d/w pt agreeable
Recommend OOB/ambulate
No narotics
Monitor lytes replete prn
If has recurring n/v would recommend NGT
D/w hospitalist as well
Subjective
Subjective
Date of Service: September 04, 2024
No BM 8-9 days
N/v improved
Still some distension
Objective
Data Reviewed
Laboratory Data:
Laboratory Results
09/04/24 05:13
09/04/24 05:13
Laboratory Results
Total Bilirubin 1.0 mg/dl (0.2-1.3) 09/02/24 05:55
AST 29 U/L (14-36) 09/02/24 05:55
ALT 26 U/L (0-35) 09/02/24 05:55
Alkaline Phosphatase 77 U/L (38-126) 09/02/24 05:55
Vital Signs and I&O:
Vital Signs
Temp Pulse Resp BP Pulse Ox
97.6 F 63 16 166/69 100
09/04/24 15:30 09/04/24 15:30 09/04/24 15:30 09/04/24 17:08 09/04/24 15:30
I&O
09/03/24 09/04/24 09/05/24
06:59 06:59 06:59
Intake Total 120 / 120
Output Total 250 / 250
Balance 120 / 120 -250 / -250
Physical Exam
Physical Exam
GI: Distended
[2024-09-04] MEDS: MELATONIN 5 MG PO (21:02)
[2024-09-04] MEDS: NEURONTIN 300 MG PO (21:02)
[2024-09-04] MEDS: AMBIEN 5 MG PO (21:02)
[2024-09-04 22:55] VITALS: BP 175/86
--- NOTE | 2024-09-05 04:19 | DOWNTIME ---
Addendum entered by Mary Hector RN 09/05/24 14:13:
Downtime was 09/05/2024 from 0100 to 09/05/2024 at 0415
Original Note:
There was a [employer] [place] [employer] Downtime on 09/04/2024 from 0100 to 09/05/2024 at 0415. Downtime documentation of patient's care, including medication administrations, has been reconciled in the electronic record per guidelines. Refer to the
patient's paper chart under the miscellaneous tab to see printed paper medication records and downtime forms.
[2024-09-05 06:00] VITALS: BMI 22.2
--- NOTE | 2024-09-05 06:04 | PTCARENOTE ---
Tap water enema given at this time per order.
[2024-09-05 06:46] LABS: Hematocrit 34.3 % (37.0-47.0); Hemoglobin 11.6 g/dL (12.0-16.0); Mean Corp Hgb Conc. 33.8 g/dL (33.0-37.0); Mean Corpuscular Volume 82.9 fL (81.0-99.0); Mean Platelet Volume 8.2 fL (7.4-10.4); Platelet Count 368 10^3/uL (130-400); Red Blood Cell Count 4.14 10^6/uL (4.20-5.40); Red Cell Dist. Width 14.4 % (11.5-14.5); White Blood Cell Count 8.9 10^3/uL (4.8-10.8)
[2024-09-05] MEDS: HEPARIN 5000 UNITS SC ×2 (07:16→21:51)
[2024-09-05] MEDS: ASPIRIN 325 MG PO (07:16)
[2024-09-05] MEDS: PROTONIX IV 40 MG IV (07:16)
[2024-09-05] MEDS: NSS (PRESERVATIVE FREE) 10 ML IV (07:16)
[2024-09-05] MEDS: PLAQUENIL 300 MG PO (07:17)
[2024-09-05] MEDS: PRED FORTE 1% EYE DROPS 1 DROP BOTH EYES (07:17)
[2024-09-05] MEDS: NORVASC 2.5 MG PO (07:19)
[2024-09-05 07:20] LABS: Blood Urea Nitrogen 24 mg/dl (7-17); Calcium 8.7 mg/dl (8.4-10.2); Carbon Dioxide 23 mmol/L (22-30); Chloride 98 mmol/L (98-107); Estimated Creatinine Clearance 44 ml/min; Glucose 71 mg/dl (70-99); Sodium 132 mmol/L (135-145); eGFR > 60.00
[2024-09-05 08:04] VITALS: BP 173/18
[2024-09-05 08:22] LABS: Cortisol, Random 18.5 ug/dl
--- NOTE | 2024-09-05 08:53 | W.PN.HOSP.TC ---
Today's Communication/Plan
-
for Gastrografin enema today
Assessment / Plan
Assessment / Plan
Assessment:
Abdominal distention with nausea/vomiting
Possible Ileus with constipation in setting of hyponatremia (also previously on narcotics)
- X-ray: with small volume stool
- CT: Small sliding hiatal hernia. Mild distal esophageal circumferential wall thickening, raising possibility of mild esophagitis in the proper clinical setting. No obstructive uropathy. Renal cysts. Mobile intraperitoneal cecum. Cecal distention
secondary to gas and liquid feces. Liquid feces in the ascending colon and transverse colon. Probable segmental underdistention of the distal transverse colon, though it would be difficult to exclude the possibility of circumferential wall
thickening. Recommend follow-up colonoscopy. Minor diverticulosis of the descending colon without acute diverticulitis. Moderate distention of the second and third segments of the duodenum with fluid and gas noted resulting in an air-fluid level.
The fourth segment of the duodenum does not definitely appear to cross the midline, and may extend inferiorly into the pelvis suggesting malrotation. However, not found on prior examination. If the patient displays clinical symptoms of small bowel
obstruction, small bowel follow-through study may be considered for further evaluation. Nonspecific mild pelvic ascites.
- NPO with sips of water
- CRS and GI consulted; for Gastrografin enema today
Acute hypovolemic hyponatremia related to vomiting/decreased solute intake/recent surgery
- continue IVF; monitor BMP
- suspect hypovolemic. TSH/Cortisol ok
Hypokalemia
- Replace prn
Essential HTN with urgency
- continue Amlodipine/Metoprolol
Recent left hip surgery
- PT/OT; posterior hip precautions for a total of at least 6 weeks with assist devices
- DVT ppx daily x 4 weeks from surgical date. While in hospital, continue SC heparin, at dc resume back ASA 325mg
Paroxysmal atrial fibrillation
- continue Metoprolol
DVT ppx: SC heparin
Code: DNR/DNI
Anticipated Discharge: > 48 hours
Subjective/Interval History
-
Date of Service: September 05, 2024
no n/v
distention stable
received enema
Objective Data
-
Labs:
Laboratory Results
09/05/24
06:04
WBC 8.9
Hgb 11.6 L
Hct 34.3 L
Plt Count 368
Sodium 132 L
Potassium 4.0
Chloride 98
Carbon Dioxide 23
BUN 24 H
Creatinine 0.8
Glucose 71
Calcium 8.7
Vital Signs:
Vital Signs
Temp Pulse Resp BP Pulse Ox
97.7 F 75 14 173/18 99
09/05/24 08:04 09/05/24 08:04 09/05/24 08:04 09/05/24 08:04 09/05/24 08:04
I&O
09/04/24 09/05/24 09/06/24
06:59 06:59 06:59
Output Total 250 / 250
Balance -250 / -250
Physical Exam
-
General: No Apparent Distress
HEENT: Normocephalic and Atraumatic
Respiratory: Negative Wheezes
Cardiac: Regular Rhythm and S1/S2
GI: Soft, Nontender and Distended
Neuro: AO x 3
Psych: Calm
Data Reviewed
-
Total Time Spent with Patient (in minutes): 42
Labs: Labs Reviewed by me
--- NOTE | 2024-09-05 10:45 | W.PN.GI.CBS2 ---
Addendum entered and electronically signed by Willie Aranda MD 09/05/24 15:21:
I saw and examined the patient.
The PUBLISHER ASSISTANT or PA's note was reviewed and I agree with the note.
Comment: 88-year-old female past medical history as below recent hip surgery August 20 with constipation with no bowel movement for 7 days. Does have chronic constipation at baseline. Underwent a CT which showed cecal distention probable
underdistention cannot rule out circumferential wall thickening, also with moderate distention of the duodenum with air-fluid levels, mild esophageal wall thickening. She underwent a Gastrografin enema today which showed no mass, moderate
distention in the colon, redundant colon, diverticulosis. Most likely suspect she has an ileus. She had bowel movements both overnight and today. Her pain, nausea vomiting, abdominal distention have all improved. Plan to start clear liquid diet
today. If tolerates, will advance to low residue tomorrow. Will resume MiraLAX twice daily. Discussed with colorectal surgery, hospitalist. Regards the mild thickening of the esophagus, I will discuss with the patient tomorrow as long she is not
having symptoms, likely would hold off on any intervention.
Original Note:
Today's Communication / Plan
-
likely ileus/pseudoobstruction (cecum only 8.6 cm) however need to r/o obstruction
colorectal following
cscope held if there is an obstruction increase risk of aspiration and if pseudoobstruction increase risk of perforation
for gastrograffin enema today
if stable pt asking to trial diet if started close watch for recurrent symptoms after eating
Recommend OOB/ambulate
No narotics
Monitor lytes replete prn
family updated
Assessment / Plan
-
Pt is a 88yo with hx afib, HTN, CKD, RA, constipation, osteoarthritis, sleep apnea, prior ileus, colon polyps, anemia, stercoral colitis, bladder sling, rectocele repair, bowel perforation treated medically , spinal stenosis with onset of
constipation. Pt had elective hip surgery 6/2 and has been on stool softeners since that time without improvement and last stool 7 days ago. Pt with flatus and small pieces of stool. On admission pt also with Na 125 and drop in K to 2.9. She
admits to some initial narcotics but not recent prior to admission. She also admits to decreased appetite with recent wt loss. She has chronic constipation with use of Miralax and also used Dulcolax as few times last week with some diarrhea. She
also admits to bloating. She otherwise denies issues with dysphagia, hematemesis, or rectal bleeding. Last colonoscopy around 2014 at [facility] with + polyps. No prior EGD. Denies NSAID use except recent ASA for hip surgery.
09/01 abd X ray Small volume colonic stool, particularly in the right colon.
09/03- CT Abd/pel (oral only)-[facility] Only
Small sliding hiatal hernia. Mild distal esophageal circumferential wall thickening, raising possibility of mild esophagitis in the proper clinical setting.
No obstructive uropathy. Renal cysts.
Mobile intraperitoneal cecum. Cecal distention secondary to gas and liquid feces. Liquid feces in the ascending colon and transverse colon. Probable segmental underdistention of the distal transverse colon, though it would be difficult to exclude
the possibility of circumferential wall thickening. Recommend follow-up colonoscopy. Minor diverticulosis of the descending colon without acute diverticulitis.
Moderate distention of the second and third segments of the duodenum with fluid and gas noted resulting in an air-fluid level. The fourth segment of the duodenum does not definitely appear to cross the midline, and may extend inferiorly into the
pelvis suggesting malrotation. However, not found on prior examination. If the patient displays clinical symptoms of small bowel obstruction, small bowel follow-through study may be considered for further evaluation.
Nonspecific mild pelvic ascites.
09/04 CR Abdomen - 1 View
1. Dilute contrast material throughout the moderately distended ascending, transverse, and proximal descending colon.
2. No radiographic evidence for contrast material in the sigmoid colon or rectum.
3. No radiographic evidence for small bowel obstruction.
4. Severe multilevel lumbar discogenic degenerative disease.
5. Moderate right convex curvature of the midlumbar spine.
-abdominal distention with nausea/vomiting after contrast
-acute on chronic constipation- prior to admission
-hyponatremia/hypokalemia
-recent hips surgery
-hx prior ileus
-hx colon perforation after resection of large polyps treated medically
-hx stercoral colitis
other med problems:
-afib
-HTN
-CKD
-RA
-osteoarthritis
-sleep apnea
-anemia
-bladder sling
-rectocele repair
PLAN:
likely ileus/pseudoobstruction (cecum only 8.6 cm) however need to r/o obstruction
colorectal following
cscope held if there is an obstruction increase risk of aspiration and if pseudoobstruction increase risk of perforation
for gastrograffin enema today
if stable pt asking to trial diet if started close watch for recurrent symptoms after eating
Recommend OOB/ambulate
No narotics
Monitor lytes replete prn
family updated
Subjective
Subjective
Date of Service: September 05, 2024
Pt rreports stool last PM prior to enema, NPO
Objective
Data Reviewed
Laboratory Data:
Laboratory Results
09/05/24 06:04
09/05/24 06:04
Laboratory Results
Total Bilirubin 1.0 mg/dl (0.2-1.3) 09/02/24 05:55
AST 29 U/L (14-36) 09/02/24 05:55
ALT 26 U/L (0-35) 09/02/24 05:55
Alkaline Phosphatase 77 U/L (38-126) 09/02/24 05:55
Vital Signs and I&O:
Vital Signs
Temp Pulse Resp BP Pulse Ox
97.7 F 75 14 173/18 99
09/05/24 08:04 09/05/24 08:04 09/05/24 08:04 09/05/24 08:04 09/05/24 08:04
I&O
09/04/24 09/05/24 09/06/24
06:59 06:59 06:59
Output Total 250 / 250
Balance -250 / -250
Physical Exam
Physical Exam
HEENT: Anicteric and Moist mucous membranes
Cardiology: Normal Sinus Rhythm
Pulmonary: Clear
GI: Soft and Distended (very soft-- improved from 2 days ago )
Extremities: No Edema
Neuro: Non Focal
--- NOTE | 2024-09-05 11:29 | W.PN.CRS1 ---
Today's Communication / Plan
-
Gastrogaffin enema today
Assessment/Plan
-
Assessment: 88 yo female with abdominal distention and constipation with distended cecum
Plan:
-Gastrogaffin enema today
-Remain NPO until GE is done
-Enema this AM prior to GE
-Plans to follow
Subjective Data
Subjective Data
Date of Service: September 05, 2024
Patient states she feels about the same. She denies pain. She is having loose stools and gas. Denies nausea or vomiting.
Objective Data
-
Vital Signs
Temp Pulse Resp BP Pulse Ox
97.7 F 75 14 173/18 99
09/05/24 08:04 09/05/24 08:04 09/05/24 08:04 09/05/24 08:04 09/05/24 08:04
Intake & Output
09/04/24 09/05/24 09/06/24
06:59 06:59 06:59
Output Total 250 / 250
Balance -250 / -250
Output:
Urine, Voided 250 / 250
Other:
Number of approximated MODERATE 1 1
amounts of urine
Lab Results
09/05/24 06:04
09/05/24 06:04
Physical Exam
-
General: No Acute Distress and AOx3
Abdomen: Soft, Non Distended and Non Tender
Skin: Warm and Dry
--- NOTE | 2024-09-05 13:10 | CM ---
Chart reviewed and patient is for discharge to home when stable with [facility].
Plan; Home with [facility].
[2024-09-05 14:30] VITALS: BP 166/72; PULSE 66; O2SAT 99
[2024-09-05 14:41] VITALS: BP 166/72; PULSE 68; O2SAT 99
[2024-09-05 15:31] VITALS: BP 171/68
[2024-09-05] MEDS: TOPROL XL 50 MG PO (17:04)
[2024-09-05] MEDS: MIRALAX PO (21:12)
[2024-09-05] MEDS: TYLENOL 650 MG PO (21:50)
[2024-09-05] MEDS: MELATONIN 5 MG PO (21:50)
[2024-09-05] MEDS: AMBIEN 5 MG PO (21:54)
[2024-09-05] MEDS: NEURONTIN 300 MG PO (22:41)
[2024-09-05 22:47] VITALS: BP 145/66
--- NOTE | 2024-09-06 05:53 | PTCARENOTE ---
Assumed care at 1915. AAO x 4. VSS, SBP <170 thus, no PRN hydralazine administered. CPAP worn over night. Patient complains of mild abdominal pain/cramping--PRN Tylenol administered. Patient still with loose stools--scheduled miralax held. Abdomen
is round, distended and tender yet, soft with active bowel sounds. OOB x 1 assist with rolling walker. Bed alarm on. Call tobias and personal belongings within reach.
[2024-09-06] MEDS: TYLENOL 650 MG PO (06:27)
[2024-09-06 06:46] LABS: Hematocrit 32.3 % (37.0-47.0); Mean Corp Hgb Conc. 34.1 g/dL (33.0-37.0); Mean Corpuscular Hgb 27.8 pg (27.0-31.0); Mean Corpuscular Volume 81.8 fL (81.0-99.0); Mean Platelet Volume 8.1 fL (7.4-10.4); Platelet Count 362 10^3/uL (130-400); Red Blood Cell Count 3.95 10^6/uL (4.20-5.40); Red Cell Dist. Width 14.1 % (11.5-14.5); White Blood Cell Count 7.5 10^3/uL (4.8-10.8)
[2024-09-06 07:05] LABS: Blood Urea Nitrogen 20 mg/dl (7-17); Calcium 9.1 mg/dl (8.4-10.2); Carbon Dioxide 26 mmol/L (22-30); Chloride 99 mmol/L (98-107); Estimated Creatinine Clearance 39 ml/min; Glucose 89 mg/dl (70-99); Potassium 3.6 mmol/L (3.5-5.1); Sodium 132 mmol/L (135-145); eGFR > 60.00
--- NOTE | 2024-09-06 07:05 | W.PN.UPDATE ---
Update Note
Progress Note Update
Status post left total hip arthroplasty August 20, [address] Cervantes. Left hip seems to be doing fairly well and she is doing some physical therapy. She was readmitted for hyponatremia and constipation which both seem to be improving. Hopefully
she will go home soon. She is afebrile and vital signs are stable. She is on heparin while in hospital and will go back on aspirin at home. Left hip/leg extensive ecchymosis. Mild edema noted. Hematoma noted about the lateral hip. No warmth,
erythema or pain. Incision was cleaned with alcohol and Betadine then skin clips were removed. Steri-Strips in place then ABD with Medipore tape placed. Ice and Tylenol. Continue with formal physical therapy. Compressive dressing may be removed
tomorrow and incision left open to air as long as there is no bleeding. Follow-up with Dr. Cervantes 4 weeks postop to check her progress.
[2024-09-06] MEDS: PLAQUENIL 300 MG PO (07:21)
[2024-09-06] MEDS: ASPIRIN 325 MG PO (07:22)
[2024-09-06] MEDS: HEPARIN 5000 UNITS SC ×2 (07:22→20:57)
[2024-09-06] MEDS: PROTONIX IV 40 MG IV (07:22)
[2024-09-06] MEDS: NSS (PRESERVATIVE FREE) 10 ML IV (07:22)
[2024-09-06] MEDS: NORVASC 2.5 MG PO (07:22)
[2024-09-06] MEDS: PRED FORTE 1% EYE DROPS 1 DROP BOTH EYES (07:22)
[2024-09-06] MEDS: MIRALAX PO (07:23)
[2024-09-06 07:51] VITALS: BP 158/68
--- NOTE | 2024-09-06 10:13 | W.PN.GI.CBS2 ---
Today's Communication / Plan
-
xray, pending will adv diet, increase ppi
Assessment / Plan
-
88-year-old female past medical history as below recent hip surgery August 20 with constipation with no bowel movement for 7 days. Does have chronic constipation at baseline. Underwent a CT which showed cecal distention probable underdistention
cannot rule out circumferential wall thickening, also with moderate distention of the duodenum with air-fluid levels, mild esophageal wall thickening. She underwent a Gastrografin enema today which showed no mass, moderate distention in the colon,
redundant colon, diverticulosis.
Most likely suspect she has an ileus. She had bowel movements both overnight and today. Her pain, nausea vomiting, abdominal distention have all improved. Doing well with clears. However, some mild increased distension on exam and mild
tenderness will repeat XR if stable/improved advance diet.
Having multiple BM will hold on miralax but will need bowel regimen on discharge.
Incidental esophageal wall thickening - I d/w pt she is having heartburn. I will increase protonix to bid. We discussed options of EGD, esophagram, doing nothing - pt prefers to hold off on any further intervention for esopahgeal wall thickening,
we discussed very low chance of malignancy she understands. Most likely I suspect this is due to reflux.
Subjective
Subjective
Date of Service: September 06, 2024
having BM
tolerating clears
some minimal abd pain
some heartburn
Objective
Data Reviewed
Laboratory Data:
Laboratory Results
09/06/24 06:17
09/06/24 06:17
Laboratory Results
Total Bilirubin 1.0 mg/dl (0.2-1.3) 09/02/24 05:55
AST 29 U/L (14-36) 09/02/24 05:55
ALT 26 U/L (0-35) 09/02/24 05:55
Alkaline Phosphatase 77 U/L (38-126) 09/02/24 05:55
Vital Signs and I&O:
Vital Signs
Temp Pulse Resp BP Pulse Ox
97.5 F 64 16 158/68 100
09/06/24 07:51 09/06/24 07:51 09/06/24 07:51 09/06/24 07:51 09/06/24 07:51
I&O
09/05/24 09/06/24 09/07/24
06:59 06:59 06:59
Intake Total 540 / 540
Output Total 250 / 250
Balance -250 / -250 540 / 540
Physical Exam
Physical Exam
GI: Distended and Non Tender
[2024-09-06 11:07] VITALS: BMI 22.2
--- NOTE | 2024-09-06 11:50 | W.PN.HOSP.TC ---
Today's Communication/Plan
-
continue clears; ADAT as per GI
Assessment / Plan
Assessment / Plan
Assessment:
Abdominal distention with nausea/vomiting
Possible Ileus with constipation in setting of hyponatremia (also previously on narcotics)
- X-ray: with small volume stool
- CT: Small sliding hiatal hernia. Mild distal esophageal circumferential wall thickening, raising possibility of mild esophagitis in the proper clinical setting. No obstructive uropathy. Renal cysts. Mobile intraperitoneal cecum. Cecal distention
secondary to gas and liquid feces. Liquid feces in the ascending colon and transverse colon. Probable segmental underdistention of the distal transverse colon, though it would be difficult to exclude the possibility of circumferential wall
thickening. Recommend follow-up colonoscopy. Minor diverticulosis of the descending colon without acute diverticulitis. Moderate distention of the second and third segments of the duodenum with fluid and gas noted resulting in an air-fluid level.
The fourth segment of the duodenum does not definitely appear to cross the midline, and may extend inferiorly into the pelvis suggesting malrotation. However, not found on prior examination. If the patient displays clinical symptoms of small bowel
obstruction, small bowel follow-through study may be considered for further evaluation. Nonspecific mild pelvic ascites.
- GG Enema: No fluoroscopic evidence for obstructing colonic mass. Moderate distention of the ascending, transverse, and descending colon. Very redundant descending and sigmoid colon.
- Xray 09/06: Again noted is distention of the ascending colon, transverse colon, descending colon. Degree of distention is similar to the most recent prior study. Contrast enema exam did not reveal a mechanical obstruction in the colon. Findings
therefore consistent with colonic ileus. Much of the radiographic contrast material within the colon has been expelled since the contrast enema exam; this argues in favor of at least some colonic motility. Close follow-up abdominal radiographs
recommended for reevaluation
- Diet: clears
- GI following
- CRS signed off
Acute hypovolemic hyponatremia related to vomiting/decreased solute intake/recent surgery
- continue IVF; monitor BMP
- suspect hypovolemic. TSH/Cortisol ok
Hypokalemia
- Replace prn
Essential HTN with urgency
- continue Amlodipine/Metoprolol
Recent left hip surgery
- PT/OT; posterior hip precautions for a total of at least 6 weeks with assist devices
- DVT ppx daily x 4 weeks from surgical date. While in hospital, continue SC heparin, at dc resume back ASA 325mg
Paroxysmal atrial fibrillation
- continue Metoprolol
DVT ppx: SC heparin
Code: DNR/DNI
Anticipated Discharge: 24 - 48 hours
Subjective/Interval History
-
Date of Service: September 06, 2024
tolerating clears
liquid bowel movements
Objective Data
-
Labs:
Laboratory Results
09/06/24
06:17
WBC 7.5
Hgb 11.0 L
Hct 32.3 L
Plt Count 362
Sodium 132 L
Potassium 3.6
Chloride 99
Carbon Dioxide 26
BUN 20 H
Creatinine 0.9
Glucose 89
Calcium 9.1
Vital Signs:
Vital Signs
Temp Pulse Resp BP Pulse Ox
97.5 F 64 16 158/68 100
09/06/24 07:51 09/06/24 07:51 09/06/24 07:51 09/06/24 07:51 09/06/24 07:51
I&O
09/05/24 09/06/24 09/07/24
06:59 06:59 06:59
Intake Total 540 / 540
Output Total 250 / 250
Balance -250 / -250 540 / 540
Physical Exam
-
General: No Apparent Distress
HEENT: Normocephalic and Atraumatic
Respiratory: Negative Wheezes
Cardiac: Regular Rhythm and S1/S2
GI: Soft and Nontender
Genito-urinary: No Costovertebral Tender
Neuro: AO x 3
Psych: Calm
Data Reviewed
-
Total Time Spent with Patient (in minutes): 42
Labs: Labs Reviewed by me
[2024-09-06 11:54] VITALS: BP 158/68
[2024-09-06 15:56] VITALS: BP 140/58
[2024-09-06] MEDS: TOPROL XL 50 MG PO (16:54)
[2024-09-06] MEDS: MELATONIN 5 MG PO (20:56)
[2024-09-06] MEDS: NEURONTIN 300 MG PO (20:56)
[2024-09-06] MEDS: AMBIEN 5 MG PO (20:57)
[2024-09-06 23:00] VITALS: BP 155/66
[2024-09-07 07:17] LABS: Blood Urea Nitrogen 16 mg/dl (7-17); Calcium 9.1 mg/dl (8.4-10.2); Carbon Dioxide 27 mmol/L (22-30); Chloride 99 mmol/L (98-107); Estimated Creatinine Clearance 39 ml/min; Glucose 111 mg/dl (70-99); Potassium 3.7 mmol/L (3.5-5.1); Sodium 132 mmol/L (135-145); eGFR > 60.00
[2024-09-07 07:18] VITALS: BP 142/65
[2024-09-07 07:43] LABS: Hemoglobin 11.4 g/dL (12.0-16.0); Mean Corp Hgb Conc. 33.5 g/dL (33.0-37.0); Mean Corpuscular Hgb 27.5 pg (27.0-31.0); Mean Corpuscular Volume 82.1 fL (81.0-99.0); Platelet Count 447 10^3/uL (130-400); Red Blood Cell Count 4.14 10^6/uL (4.20-5.40); Red Cell Dist. Width 14.2 % (11.5-14.5); White Blood Cell Count 9.6 10^3/uL (4.8-10.8)
[2024-09-07] MEDS: PRED FORTE 1% EYE DROPS 1 DROP BOTH EYES (08:44)
[2024-09-07] MEDS: NORVASC 2.5 MG PO (08:45)
[2024-09-07] MEDS: PLAQUENIL 300 MG PO (08:46)
[2024-09-07] MEDS: ASPIRIN 325 MG PO (08:47)
[2024-09-07] MEDS: HEPARIN 5000 UNITS SC ×2 (08:47→21:33)
--- NOTE | 2024-09-07 11:27 | W.PN.HOSP.TC ---
Today's Communication/Plan
-
continue full liquids; ADAT per GI
eventual home/VN dc when cleared
Assessment / Plan
Assessment / Plan
Assessment:
Abdominal distention with nausea/vomiting
Possible Ileus with constipation in setting of hyponatremia (also previously on narcotics)
- X-ray: with small volume stool
- CT: Small sliding hiatal hernia. Mild distal esophageal circumferential wall thickening, raising possibility of mild esophagitis in the proper clinical setting. No obstructive uropathy. Renal cysts. Mobile intraperitoneal cecum. Cecal distention
secondary to gas and liquid feces. Liquid feces in the ascending colon and transverse colon. Probable segmental underdistention of the distal transverse colon, though it would be difficult to exclude the possibility of circumferential wall
thickening. Recommend follow-up colonoscopy. Minor diverticulosis of the descending colon without acute diverticulitis. Moderate distention of the second and third segments of the duodenum with fluid and gas noted resulting in an air-fluid level.
The fourth segment of the duodenum does not definitely appear to cross the midline, and may extend inferiorly into the pelvis suggesting malrotation. However, not found on prior examination. If the patient displays clinical symptoms of small bowel
obstruction, small bowel follow-through study may be considered for further evaluation. Nonspecific mild pelvic ascites.
- GG Enema: No fluoroscopic evidence for obstructing colonic mass. Moderate distention of the ascending, transverse, and descending colon. Very redundant descending and sigmoid colon.
- Xray 09/06: Again noted is distention of the ascending colon, transverse colon, descending colon. Degree of distention is similar to the most recent prior study. Contrast enema exam did not reveal a mechanical obstruction in the colon. Findings
therefore consistent with colonic ileus. Much of the radiographic contrast material within the colon has been expelled since the contrast enema exam; this argues in favor of at least some colonic motility. Close follow-up abdominal radiographs
recommended for reevaluation
- Diet: full liquids
- GI following
- CRS signed off
Acute hypovolemic hyponatremia related to vomiting/decreased solute intake/recent surgery
- continue IVF; monitor BMP
- suspect hypovolemic. TSH/Cortisol ok
Hypokalemia
- Replace prn
Essential HTN with urgency
- continue Amlodipine/Metoprolol
Recent left hip surgery
- PT/OT; posterior hip precautions for a total of at least 6 weeks with assist devices
- DVT ppx daily x 4 weeks from surgical date. While in hospital, continue SC heparin, at dc resume back ASA 325mg
Paroxysmal atrial fibrillation
- continue Metoprolol
DVT ppx: SC heparin
Code: DNR/DNI
Anticipated Discharge: 24 - 48 hours
Subjective/Interval History
-
Date of Service: September 07, 2024
resting comfortably, no complaints
Objective Data
-
Labs:
Laboratory Results
09/07/24
06:02
WBC 9.6
Hgb 11.4 L
Hct 34.0 L
Plt Count 447 H D
Sodium 132 L
Potassium 3.7
Chloride 99
Carbon Dioxide 27
BUN 16
Creatinine 0.9
Glucose 111 H
Calcium 9.1
Vital Signs:
Vital Signs
Temp Pulse Resp BP Pulse Ox
98.2 F 54 16 142/65 98
09/07/24 07:18 09/07/24 07:18 09/07/24 07:18 09/07/24 07:18 09/07/24 07:18
I&O
09/06/24 09/07/24 09/08/24
06:59 06:59 06:59
Intake Total 540 / 540 1450 / 1450
Balance 540 / 540 1450 / 1450
Physical Exam
-
General: No Apparent Distress
HEENT: Normocephalic and Atraumatic
Respiratory: Negative Wheezes
Cardiac: Regular Rhythm and S1/S2
GI: Soft and Nontender
Genito-urinary: No Costovertebral Tender
Neuro: AO x 3
Psych: Calm
Data Reviewed
-
Total Time Spent with Patient (in minutes): 45
Labs: Labs Reviewed by me
[2024-09-07 14:48] VITALS: BP 104/56
--- NOTE | 2024-09-07 14:59 | W.PN.GI.CBS2 ---
Today's Communication / Plan
-
Okay to advance diet
Continue bowel regimen
Encourage ambulation
Assessment / Plan
-
88-year-old female past medical history as below recent hip surgery August 20 with constipation with no bowel movement for 7 days. Does have chronic constipation at baseline. Underwent a CT which showed cecal distention probable underdistention
cannot rule out circumferential wall thickening, also with moderate distention of the duodenum with air-fluid levels, mild esophageal wall thickening. She underwent a Gastrografin enema today which showed no mass, moderate distention in the colon,
redundant colon, diverticulosis.
-- Ileus/constipation-currently having bowel movement with laxatives. Repeat abdominal x-ray this a.m. showing less distended colon although it remains distended. Clinical examination abdomen was soft
-- Incidental esophageal wall thickening -Dr. Aponte discussed with patient. Pt prefers to hold off on any further intervention for esopahgeal wall thickening understanding the benefits and risks
plan
Okay to advance diet
Continue bowel regimen. Adjust with bowel movements.
Encourage ambulation
No further recommendation. Will sign off
Total Time Spent with Patient (in minutes): 35
Subjective
Subjective
Date of Service: September 07, 2024
Feeling better. Denies any abdominal pain/nausea/vomiting
Objective
Data Reviewed
Laboratory Data:
Laboratory Results
09/07/24 06:02
09/07/24 06:02
Laboratory Results
Total Bilirubin 1.0 mg/dl (0.2-1.3) 09/02/24 05:55
AST 29 U/L (14-36) 09/02/24 05:55
ALT 26 U/L (0-35) 09/02/24 05:55
Alkaline Phosphatase 77 U/L (38-126) 09/02/24 05:55
Vital Signs and I&O:
Vital Signs
Temp Pulse Resp BP Pulse Ox
98.0 F 70 18 104/56 99
09/07/24 14:48 09/07/24 14:48 09/07/24 14:48 09/07/24 14:48 09/07/24 14:48
I&O
09/06/24 09/07/24 09/08/24
06:59 06:59 06:59
Intake Total 540 / 540 1450 / 1450
Balance 540 / 540 1450 / 1450
Physical Exam
Physical Exam
GI: Soft, Distended (Mildly distended) and Non Tender
[2024-09-07 15:27] VITALS: BP 129/58; PULSE 61; O2SAT 96
--- NOTE | 2024-09-07 15:32 | CM ---
Patient to return to home with [facility] when stable.
Plan; Home with [facility] when stable.
[2024-09-07] MEDS: TOPROL XL 50 MG PO (18:37)
[2024-09-07] MEDS: NEURONTIN 300 MG PO (21:33)
[2024-09-07] MEDS: MELATONIN 5 MG PO (21:33)
[2024-09-07] MEDS: AMBIEN 5 MG PO (21:37)
[2024-09-07 23:10] VITALS: BP 143/66
[2024-09-08 07:19] VITALS: BP 139/69
[2024-09-08] MEDS: NORVASC 2.5 MG PO (08:00)
[2024-09-08] MEDS: PLAQUENIL 300 MG PO (08:00)
[2024-09-08] MEDS: ASPIRIN 325 MG PO (08:00)
[2024-09-08] MEDS: PRED FORTE 1% EYE DROPS 1 DROP BOTH EYES (08:01)
[2024-09-08] MEDS: HEPARIN 5000 UNITS SC (08:01)
[2024-09-08 08:56] LABS: Hematocrit 32.3 % (37.0-47.0); Hemoglobin 10.9 g/dL (12.0-16.0); Mean Corp Hgb Conc. 33.7 g/dL (33.0-37.0); Mean Corpuscular Hgb 27.7 pg (27.0-31.0); Mean Corpuscular Volume 82.2 fL (81.0-99.0); Platelet Count 342 10^3/uL (130-400); Red Blood Cell Count 3.93 10^6/uL (4.20-5.40); Red Cell Dist. Width 14.1 % (11.5-14.5); White Blood Cell Count 6.5 10^3/uL (4.8-10.8)
[2024-09-08 09:13] LABS: Blood Urea Nitrogen 13 mg/dl (7-17); Calcium 8.7 mg/dl (8.4-10.2); Carbon Dioxide 25 mmol/L (22-30); Chloride 100 mmol/L (98-107); Estimated Creatinine Clearance 44 ml/min; Glucose 117 mg/dl (70-99); Potassium 3.4 mmol/L (3.5-5.1); Sodium 132 mmol/L (135-145); eGFR > 60.00
--- NOTE | 2024-09-08 11:20 | W.PN.HOSP.TC ---
Today's Communication/Plan
-
dc home/VN
Assessment / Plan
Assessment / Plan
Assessment:
Abdominal distention with nausea/vomiting
Possible Ileus with constipation in setting of hyponatremia (also previously on narcotics)
- X-ray: with small volume stool
- CT: Small sliding hiatal hernia. Mild distal esophageal circumferential wall thickening, raising possibility of mild esophagitis in the proper clinical setting. No obstructive uropathy. Renal cysts. Mobile intraperitoneal cecum. Cecal distention
secondary to gas and liquid feces. Liquid feces in the ascending colon and transverse colon. Probable segmental underdistention of the distal transverse colon, though it would be difficult to exclude the possibility of circumferential wall
thickening. Recommend follow-up colonoscopy. Minor diverticulosis of the descending colon without acute diverticulitis. Moderate distention of the second and third segments of the duodenum with fluid and gas noted resulting in an air-fluid level.
The fourth segment of the duodenum does not definitely appear to cross the midline, and may extend inferiorly into the pelvis suggesting malrotation. However, not found on prior examination. If the patient displays clinical symptoms of small bowel
obstruction, small bowel follow-through study may be considered for further evaluation. Nonspecific mild pelvic ascites.
- GG Enema: No fluoroscopic evidence for obstructing colonic mass. Moderate distention of the ascending, transverse, and descending colon. Very redundant descending and sigmoid colon.
- Xray 09/06: Again noted is distention of the ascending colon, transverse colon, descending colon. Degree of distention is similar to the most recent prior study. Contrast enema exam did not reveal a mechanical obstruction in the colon. Findings
therefore consistent with colonic ileus. Much of the radiographic contrast material within the colon has been expelled since the contrast enema exam; this argues in favor of at least some colonic motility. Close follow-up abdominal radiographs
recommended for reevaluation
- Diet: LRD
- GI follow up outpatient
- CRS signed off
Acute hypovolemic hyponatremia related to vomiting/decreased solute intake/recent surgery
- improved with IVF
- suspect hypovolemic. TSH/Cortisol ok
Hypokalemia
- Replace prn
Essential HTN with urgency
- continue Amlodipine/Metoprolol
Recent left hip surgery
- PT/OT; posterior hip precautions for a total of at least 6 weeks with assist devices
- DVT ppx daily x 4 weeks from surgical date. While in hospital, continue SC heparin, at dc resume back ASA 325mg
- OP ortho f/u
Paroxysmal atrial fibrillation
- continue Metoprolol
DVT ppx: SC heparin
Code: DNR/DNI
More than 30 minutes spent in discharge including
Final examination of the patient
Summarizing hospital stay
Instructions for continuing care to all relevant caregivers
Preparation of discharge records, prescriptions, and referral forms
Total time spent (in minutes):41
Anticipated Discharge: Today
Subjective/Interval History
-
Date of Service: September 08, 2024
tolerating diet, no complaints at present
Objective Data
-
Labs:
Laboratory Results
09/08/24
08:10
WBC 6.5
Hgb 10.9 L
Hct 32.3 L
Plt Count 342 D
Sodium 132 L
Potassium 3.4 L
Chloride 100
Carbon Dioxide 25
BUN 13
Creatinine 0.8
Glucose 117 H
Calcium 8.7
Vital Signs:
Vital Signs
Temp Pulse Resp BP Pulse Ox
96.2 F L 56 20 139/69 97
09/08/24 07:19 09/08/24 08:00 09/08/24 07:19 09/08/24 08:00 09/08/24 07:19
I&O
09/07/24 09/08/24 09/09/24
06:59 06:59 06:59
Intake Total 1450 / 1450 480 / 480
Balance 1450 / 1450 480 / 480
Physical Exam
-
General: No Apparent Distress
HEENT: Normocephalic and Atraumatic
Respiratory: Negative Wheezes
Cardiac: Regular Rhythm and S1/S2
GI: Soft and Nontender
Neuro: AO x 3
Psych: Calm
Data Reviewed
-
Total Time Spent with Patient (in minutes): 41
Labs: Labs Reviewed by me
--- NOTE | 2024-09-08 11:25 | W.DS.TRANS ---
DC Summary - [facility]
-
Discharge Instructions:
Discharge Diagnosis/Procedures colonic ileus
Diet Low Residue
Activity As tolerated
Other Services VN
Instructions:
Stand-Alone Forms:
Changes to Home Medications: No
Discharge Medications:
DC Medications w/original date entered in [facility]
gabapentin 300 mg capsule 300 mg PO HS Neurological Condition 08/02/24
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
polyethylene glycol 3350 17 gram oral powder packet (Miralax) 17 g PO DAILY Gastrointestinal Issue 08/20/24
amlodipine 2.5 mg tablet 2.5 mg PO DAILY Blood Pressure #1 tab 08/22/24
acetaminophen 650 mg tablet,extended release 650 mg PO HSPRN PRN mild pain 09/01/24
cyclobenzaprine 10 mg tablet 10 mg PO HSPRN PRN sleep 09/01/24
metoprolol succinate 50 mg tablet,extended release 24 hr 50 mg PO QPM Blood Pressure 09/01/24
prednisolone acetate 1 % eye drops,suspension 1 drp BOTH EYES DAILY Eye Condition 09/01/24
docusate sodium 100 mg capsule 100 mg PO BID STOOL SOFTENER 09/02/24
aspirin 325 mg tablet 325 mg PO DAILY #11 tabs 09/08/24
Home Medication Changes
Pending Results: No
Total time spent discharging patient (in min): 41
[2024-09-08 11:35] VITALS: BP 142/64
--- NOTE | 2024-09-08 11:57 | CM ---
Patient stable for d/c today. [facility] accepted for services
Met w/ patient bedside. IMM verbally reviewed, copy provided, copy on chart
Son will transport home
Plan: Home w/ [facility]
== END 2024-09-08 13:02 | disposition home health service (06) | DRG 389 ==
LOC: 4 WEST ACU 16:52
PROVIDERS: General Practice; Nurse Practitioner Adult Health; Physician Assistant; ADMITTING PHYSICIAN Hospitalist; ATTENDING PHYSICIAN Internal Medicine; CONSULT PHYSICIAN Internal Medicine Gastroenterology; EMERGENCY PHYSICIAN Emergency Medicine; FAMILY PHYSICIAN Internal Medicine; OTHER PHYSICIAN Surgery
PROC: 5A09357 Assistance with Respiratory Ventilation, Less than 24 Consecutive Hours, Continuous Positive Airway Pressure (ICD-10-PCS; 2024-09-01)
DX: K56.7 Ileus, unspecified (principal); E87.1 Hypo-osmolality and hyponatremia; E87.6 Hypokalemia; I12.9 Hypertensive chronic kidney disease with stage 1 through stage 4 chronic kidney disease, or unspecified chronic kidney disease; N18.30 Chronic kidney disease, stage 3 unspecified; I48.0 Paroxysmal atrial fibrillation; Z66 Do not resuscitate; Z86.0100 Personal history of colon polyps, unspecified; G47.33 Obstructive sleep apnea (adult) (pediatric); M06.9 Rheumatoid arthritis, unspecified; D63.1 Anemia in chronic kidney disease; Z90.710 Acquired absence of both cervix and uterus; Z87.891 Personal history of nicotine dependence; Z88.5 Allergy status to narcotic agent; Z79.82 Long term (current) use of aspirin; Z79.899 Other long term (current) drug therapy; Z96.642 Presence of left artificial hip joint; M48.00 Spinal stenosis, site unspecified; K21.9 Gastro-esophageal reflux disease without esophagitis; M79.7 Fibromyalgia; M85.80 Other specified disorders of bone density and structure, unspecified site
CPT/HCPCS: 71046; 74018; 74019; 74022; 74176; 74270; 80048; 80053; 81003; 81015; 82378; 82533; 83930; 83935; 84300; 84443; 85025; 85027; 87086; 94660; 96360; 97110; 97112; 97116; 97162; 97166; 97530; 97535; 99285

== ENCOUNTER 2024-09-19 21:40 | Inpatient (IN) | payer MEDICARE, OTHER, SELFPAY ==
[2024-09-19] VITALS (7 sets, daily range): BP systolic 127–199; BP diastolic 80–93; BMI 23.5
[2024-09-19 17:14] LABS: Hematocrit 30.1 % (37.0-47.0); Hemoglobin 10.4 g/dL (12.0-16.0); Mean Corp Hgb Conc. 34.6 g/dL (33.0-37.0); Mean Corpuscular Volume 80.5 fL (81.0-99.0); Nucleated Red Blood Cells % 0 %; Platelet Count 402 10^3/uL (130-400); Red Cell Dist. Width 13.5 % (11.5-14.5)
[2024-09-19] MEDS: OMNIPAQUE 50 ML PO (17:23)
[2024-09-19 17:28] LABS: ALT (SGPT) 20 U/L (0-35); AST (SGOT) 22 U/L (14-36); Albumin 4.0 g/dl (3.5-5.0); Alkaline Phosphatase 112 U/L (38-126); Blood Urea Nitrogen 16 mg/dl (7-17); Calcium 9.1 mg/dl (8.4-10.2); Carbon Dioxide 25 mmol/L (22-30); Chloride 95 mmol/L (98-107); Estimated Creatinine Clearance 48 ml/min; Glucose 126 mg/dl (70-99); Potassium 4.1 mmol/L (3.5-5.1); Sodium 127 mmol/L (135-145); Total Protein 6.6 g/dl (6.3-8.2); eGFR > 60.00
--- NOTE | 2024-09-19 18:08 | ED.GENMED ---
History of Present Illness
General
Chief Complaint: Abdominal Pain
Time Seen by Provider: 09/19/24 17:06
History of Present Illness
History of Present Illness:
Patient is a 88-year-old woman with recent admission for constipation nausea vomiting presenting to the emergency department with abdominal pain. Patient states for the past few days has been having right-sided abdominal pain. Today it has been
sharp and radiating to her back. She did have 2 episodes of vomiting this morning. No diarrhea. No urinary symptoms. Her last bowel movement was 3 days ago. Per chart review patient was here for constipation nausea vomiting and there was
concern for obstruction versus ileus. Ultimately further testing did not show an obstruction. She does state that this does feel similar.
Past History
Past History
ED Past Medical History: Other (Obstructive sleep apnea, fibromyalgia, osteoarthritis, osteopenia, spinal stenosis, cataracts, degenerative disc disease, cystocele, rectocele)
ED Past Surgical History: Gynecological (Hysterectomy), Urological (Bladder sling) and Other (Bowel perforation 2015)
Social History
Tobacco: Former smoker
Alcohol: None
Drug: None
Personal: Single
Living: alone
Phy Exam
Physical Exam
Physical Exam:
GENERAL: in no acute distress
HEENT: normocephalic, extraocular movements intact, moist oral mucosa
NECK: normal inspection
RESPIRATORY: no respiratory distress, clear to auscultation bilaterally
CARDIOVASCULAR: regular rate and rhythm
ABDOMEN/: soft, mildly distended right lower quadrant tenderness n, no rebound or guarding
EXTREMITIES: non-tender, no edema/swelling
NEUROLOGIC: awake and alert, moves all extremities
SKIN: warm
Course
Orders/Labs/Results
Orders:
Orders
09/19/24 17:07
CMP [Comprehensive Metabolic Panel] Urgent
Complete Blood Count/With Diff Urgent
09/19/24 17:19
CT Abd/pel W Iv And Oral Contr Urgent
Comment:
Reason For Exam: rlq pain
Iohexol [Omnipaque] See Protocol PO NOW STA
09/19/24 20:14
Urinalysis Reflex To Culture Urgent
Date Specimen was Collected: 09/19/24
Time Specimen was Collected: 17:10
Urine Microscopic Reflex Cult Urgent
09/19/24 20:35
0.9% Sodium Chloride 500 ml [Nss] 500 ml IV BOLUS
Abnormal Lab Results
09/19/24 09/19/24
17:07 20:14
RBC 3.74 L 10^6/uL
(4.20-5.40)
Hgb 10.4 L g/dL
(12.0-16.0)
Hct 30.1 L %
(37.0-47.0)
MCV 80.5 L fL
(81.0-99.0)
Plt Count 402 H 10^3/uL
(130-400)
Absolute Neuts (auto) 7.2 H 10^3/uL
(1.4-6.5)
Absolute Lymphs (auto) 1.0 L 10^3/uL
(1.2-3.4)
Neutrophils % 78.2 H %
(42.2-75.2)
Lymphocytes % 11.1 L %
(20.5-51.1)
Sodium 127 L mmol/L
(135-145)
Chloride 95 L mmol/L
(98-107)
Glucose 126 H mg/dl
(70-99)
Urine Albumin (Reflex) 1+ A
(Neg - Trace)
09/19/24 17:07
09/19/24 17:07
Vital Signs
Initial and Last Documented VS:
Initial Vital Signs
Temp Pulse Resp BP Pulse Ox
97.7 F 90 18 127/84 98
09/19/24 16:29 09/19/24 16:29 09/19/24 16:29 09/19/24 16:29 09/19/24 16:29
Last Documented Vital Signs
Temp Pulse Resp BP Pulse Ox
97.7 F 90 18 180/89 99
09/19/24 16:29 09/19/24 16:29 09/19/24 16:29 09/19/24 18:01 09/19/24 18:11
MDM/Problems Addressed
Differential Diagnosis Includes:
88-year-old woman presenting to the emergency department abdominal pain vomiting. Vitals are unremarkable and exam does show right lower quadrant tenderness with mild distention. Concern for electrolyte derangement such as hyponatremia which
patient did have previously versus obstruction versus constipation versus kidney stone or urinary infection. Will check blood work urine and CT scan.
*Pulse Oximetry
SaO2: 99
Oxygen Mode of Delivery: Room air
Patient hypoxic: no (98)
*Critical Care Note
Total Time (30-74mins, 75-104mins- exclusive of procedures): Not Applicable
Update Note
Update Note:
Blood work notable for hyponatremia at 127. Patient does appear dry. Will give fluids. Discussed with hospitalist who excepted patient for admission. CT scan read pending at the time of admission.
ED Attending Note
-
Portions of this chart may have been created with voice recognition software.� Occasional wrong word or��sound alike� substitutions may have occurred due to the inherent limitations of voice recognition software.
Discharge Plan
Departure
Patient Disposition: Admit
Date of Disposition: 09/19/24
Time of Disposition: 20:35
Presentation/result/management discussed w/ accepting MD/DO: Hospitalist
Discharge Problem:
Hyponatremia
Prescriptions:
No Action
gabapentin 300 mg Capsule
300 mg PO HS
hydroxychloroquine 200 mg Tablet
300 mg PO DAILY
polyethylene glycol 3350 [Miralax] 17 gram Powder In Packet
17 g PO DAILY
amlodipine 2.5 mg Tablet
2.5 mg PO DAILY Qty: 1 0RF
acetaminophen 650 mg Tablet Extended Release
650 mg PO HSPRN PRN (Reason: mild pain)
prednisolone acetate 1 % drops,suspension
1 drp BOTH EYES DAILY
cyclobenzaprine 10 mg tablet
10 mg PO HSPRN PRN (Reason: sleep)
metoprolol succinate 50 MG tablet extended release 24 hr
50 mg PO QPM
docusate sodium 100 mg capsule
100 mg PO BID
aspirin 325 mg Tablet
325 mg PO DAILY Qty: 11 0RF
Rx Instructions:
last date 09/19/24
Referrals:
Mike Miguel MD [Family Provider, Internal Medicine]
Interventions
Interventions:
*Risk Screen - Suicide Last Done: 09/19/24 16:29
*General Assessment Last Done: 09/19/24 16:29
*Neglect/Abuse Screening Last Done: 09/19/24 16:54
*ED COVID-19 Vaccine History Last Done: 09/19/24 16:29
[facility]Mq[facility] Assessment Last Done: 09/19/24 16:54
Discharge Date and Time
Print Language: SINHALA
--- NOTE | 2024-09-19 19:00 | EDRN ---
Report received, introduced myself to patient who is wondering when CT will be, updated her on that, patient has call tobias in reach.
--- NOTE | 2024-09-19 20:15 | EDRN ---
Patient ambulated into the restroom to obtain a sample and back in bed resting, patient was able to ambulate with use of her cane, patient is asking about something to eat, aware the provider wants to wait until her CT results come back.
[2024-09-19 20:22] LABS: Urine Character Clear (Clear)
[2024-09-19 20:38] LABS: Urine Red Blood Cell 0-2 /HPF (0-2); Urine White Cell 0-2 /HPF (0-5)
[2024-09-19] MEDS: NSS 500 IV (20:53)
--- NOTE | 2024-09-19 21:24 | HPS.HSE ---
Family Physician
-
Family Physician: Mike Miguel
Chief Complaint
-
abdominal pain
History of Present Illness
Allergies
Allergy/AdvReac Type Severity Reaction Status Date / Time
codeine Allergy Nausea / Verified 09/19/24 16:32
Vomiting
house dust mite Allergy COUGHING Verified 09/19/24 16:32
morphine Allergy Severe Verified 09/19/24 16:32
Nausea /
Vomiting
Home Medications
gabapentin 300 mg capsule 300 mg PO HS Neurological Condition 08/02/24
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
polyethylene glycol 3350 17 gram oral powder packet (Miralax) 17 g PO DAILY Gastrointestinal Issue 08/20/24
acetaminophen 650 mg tablet,extended release 325 mg PO BID 09/01/24
cyclobenzaprine 10 mg tablet 10 mg PO HSPRN PRN sleep 09/01/24
metoprolol succinate 50 mg tablet,extended release 24 hr 50 mg PO DAILY Blood Pressure 09/01/24
docusate sodium 100 mg capsule 100 mg PO BID STOOL SOFTENER 09/02/24
amlodipine 2.5 mg tablet 2.5 mg PO QPM Blood Pressure 09/19/24
carboxymethylcellulose 0.5 %-glycerin 0.9 % eye drops (Refresh Optive) 1 drp BOTH EYES BID 09/19/24
Medical History
Past Medical History
Past Medical History: Reports Other (88-year-old female past medical history of paroxysmal atrial fibrillation constipation, recent left hip surgery, hypertension, obstructive sleep apnea, rheumatoid arthritis, fibromyalgia, bladder sling, rectocele
repair, prior bowel perforation treated medically, osteoarthritis, osteopenia, spinal s)
Past Surgical History: Reports Other (Gynecological (Hysterectomy), Urological (Bladder sling) and Other (Bowel perforation 2014))
Social History
Tobacco: Non-smoker
Alcohol: None
Drug: None
Family History
Family History: Not pertinent
Allergies / Home Medications
Allergies reflects when Allergies were last updated in [facility].
Home Medications with original date entered in [facility]
Allergy/Medication List:
Allergies
Allergy/AdvReac Type Severity Reaction Status Date / Time
codeine Allergy Nausea / Verified 09/19/24 16:32
Vomiting
house dust mite Allergy COUGHING Verified 09/19/24 16:32
morphine Allergy Severe Verified 09/19/24 16:32
Nausea /
Vomiting
Home Medications
gabapentin 300 mg capsule 300 mg PO HS Neurological Condition 08/02/24
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
polyethylene glycol 3350 17 gram oral powder packet (Miralax) 17 g PO DAILY Gastrointestinal Issue 08/20/24
acetaminophen 650 mg tablet,extended release 325 mg PO BID 09/01/24
cyclobenzaprine 10 mg tablet 10 mg PO HSPRN PRN sleep 09/01/24
metoprolol succinate 50 mg tablet,extended release 24 hr 50 mg PO DAILY Blood Pressure 09/01/24
docusate sodium 100 mg capsule 100 mg PO BID STOOL SOFTENER 09/02/24
amlodipine 2.5 mg tablet 2.5 mg PO QPM Blood Pressure 09/19/24
carboxymethylcellulose 0.5 %-glycerin 0.9 % eye drops (Refresh Optive) 1 drp BOTH EYES BID 09/19/24
Review of Systems
-
History Source: Patient
A 12 point ROS was completed and negative except as noted: Yes
Constitutional: Reports No Symptoms
EENT: Reports No Symptoms
Respiratory: Reports No Symptoms
Cardiac: Reports No Symptoms
Abdomen/GI: Reports See HPI
: Reports No Symptoms
Musculoskeletal: Reports No Symptoms
Skin: Reports No Symptoms
Neurological: Reports No Symptoms
Endocrine: Reports No Symptoms
Hematologic/Lymphatic: Reports No Symptoms
Psych: Reports No Symptoms
Physical Exam
Vital Signs
Vital Signs
Temp Pulse Resp BP Pulse Ox
97.7 F 90 18 180/89 99
09/19/24 16:29 09/19/24 16:29 09/19/24 16:29 09/19/24 18:01 09/19/24 18:11
Physical Exam
General: Well Developed, Well Nourished and No Apparent Distress
HEENT: NormoCephalic, Moist mucous membranes and Atraumatic
Respiratory: Clear
Cardiac: S1/S2 and Regular Rhythm; No Murmur or Rub
GI: Soft, Non Distended, Normal Bowel Sounds and Tender (RUQ ); No Organomegaly
Rectal: Deferred by Provider
Musculoskeletal: No Clubbing, No Cyanosis and No Edema
Skin: No Rash
Neuro: Nonfocal/grossly intact
Laboratory Results
-
09/19/24 17:07
09/19/24 17:07
Laboratory Results
Total Bilirubin 0.6 mg/dl (0.2-1.3) 09/19/24 17:07
AST 22 U/L (14-36) 09/19/24 17:07
ALT 20 U/L (0-35) 09/19/24 17:07
Alkaline Phosphatase 112 U/L (38-126) 09/19/24 17:07
Data Reviewed
-
Lab Data: Labs Reviewed by me
Old Records: Reviewed
Impression/Plan
-
IMPRESSION:
PLAN:
# Recurrent constipation with likely associated stercoral colitis vs bowel collapse
- CT scan shows large volume stool in the right colon and transverse colon suggesting constipation, nonspecific mild wall thickening of the descending colon and sigmoid colon possibly secondary to bowel collapse versus infectious or inflammatory
colitis, slightly more localized wall thickening at the level of the splenic flexure
-Clinically seems like stercoral colitis
- Clear liquid diet
-No signs of infection clinically, hold off antibiotics
-Clear liquid diet
-Continue MiraLAX twice daily, Colace,
- GI consulted
# Worsening of chronic hyponatremia likely secondary to poor solute intake
- Sodium 127 from 132 on recent discharge
- IV fluids given, hold further fluids
# Elevated blood pressure secondary to not taking medications today
- Continue amlodipine
Paroxysmal atrial fibrillation
- Continue metoprolol
Recent left hip surgery
History of bowel perforation
Obstructive sleep apnea
Fibromyalgia
- Continue pregabalin, gabapentin
Rheumatoid arthritis
- Continue hydroxychloroquine
Osteoarthritis
Osteopenia
DNR/DNI
DVT prophylaxis�heparin
Clear liquid diet
--- NOTE | 2024-09-19 21:30 | EDRN ---
Patient ambulatory to the restroom and back in bed resting comfortably, waiting on a room at this time.
[2024-09-19] MEDS: NEURONTIN 300 MG PO (22:58)
[2024-09-19] MEDS: FLEXERIL 10 MG PO (22:58)
[2024-09-20 05:30] VITALS: BMI 22.7
[2024-09-20 05:50] LABS: Hematocrit 31.9 % (37.0-47.0); Hemoglobin 10.6 g/dL (12.0-16.0); Mean Corp Hgb Conc. 33.2 g/dL (33.0-37.0); Mean Corpuscular Volume 82.0 fL (81.0-99.0); Nucleated Red Blood Cells % 0 %; Platelet Count 411 10^3/uL (130-400); Red Cell Dist. Width 13.3 % (11.5-14.5)
[2024-09-20 06:18] LABS: ALT (SGPT) 18 U/L (0-35); AST (SGOT) 17 U/L (14-36); Albumin 3.6 g/dl (3.5-5.0); Alkaline Phosphatase 109 U/L (38-126); Blood Urea Nitrogen 14 mg/dl (7-17); Calcium 9.1 mg/dl (8.4-10.2); Carbon Dioxide 28 mmol/L (22-30); Chloride 95 mmol/L (98-107); Estimated Creatinine Clearance 48 ml/min; Glucose 109 mg/dl (70-99); Sodium 128 mmol/L (135-145); Total Protein 6.4 g/dl (6.3-8.2); eGFR > 60.00
[2024-09-20 06:24] LABS: Potassium 4.1 mmol/L (3.5-5.1)
--- NOTE | 2024-09-20 06:52 | CON.GI ---
Addendum entered and electronically signed by Dedrick Chan MD 09/20/24 12:28:
I saw and examined the patient.
The PACE ANALYST or PA's note was reviewed and I agree with the note.
Comment:
Pt known to us with intermittent constipation but appears to coincide with drops in sodium of unclear etiology. Also has some dyspepsia. She has hx of bowel perforation from colonoscopy. CT scan shows right sided stool. No abdominal pain
abd: soft, mild tenderness
impression:
anemia
dyspepsia
constipation
hyponatremia
plan:
evaluation of hyponatremia by renal
bowel regimen
PPI
pt has been hesitant for scopes but if symptoms remain after correction of hyponatremia should likely be done
Original Note:
Consultation
-
Date/Time Consultation Requested: 09/19/242219
Date/Time Consultation Performed: 09/20/2430
Requesting Provider: Rubi Ag MD
Performing Provider: EVELIA Mullins, Dedrick Chan MD
Reason for Consultation: constipation,stercoral colitis
Medical History
Chief Complaint / HPI
Chief Complaint: constiatoion
History of Present Illness:
Pt is a 88yo with hx afib, HTN, CKD, RA, constipation, osteoarthritis, sleep apnea, prior ileus, colon polyps, anemia, stercoral colitis, bladder sling, rectocele repair, bowel perforation treated medically , spinal stenosis with onset of
constipation. She had admission 09/01- 09/08 with constipation but also noted Na 125 and K 2.9. She has multiple radiology imaging studies with initial abd film small volume stool. She also completed oral contrast only CT which showed cecal
distention probable underdistention cannot rule out circumferential wall thickening, also with moderate distention of the duodenum with air-fluid levels, mild esophageal wall thickening. She then completed Gastrografin enema which showed no mass,
moderate distention in the colon, redundant colon, diverticulosis. Most likely suspect she has an ileus with eventual improvement on repeat X ray 09/07 with diet advancement and ot was discharged. She also reviewed for EGD with esophageal thickening
but study was held. On discharged she was recommended Miralax 17 grams daily, and colace BID. She now returns with right sided abdominal pain and no stools for [address] on admission with large volume stool right and transverse colon with
mild wall thickening of descending colon and sigmoid with possible bowel collapse vs infectious or inflammatory colitis and slight increased wall thickening at splenic flexure with follow up colonoscopy recommended. She was also noted with Na 127
with normal K of 4.1 on return.
. In review with patient she may have been improved from a few days then recurrent symptoms. She admits to right sided pain that is now improving but continued constipation and denies stools but had stool recorded in chart. She denies issues with
dysphagia, GERD, nausea, vomiting,hematemesis, diarrhea, blood or black in stools. Last colonoscopy around 2014 at [facility] with + polyps. No prior EGD.
Past Medical History
Past Medical History: Arrhythmias (PAF), HTN, Renal Failure (CKD) and Other (constipation, osteoarthritis, sleep apnea, ileus, colon polyps, anemia, rheumatoid arthritis , stercoral colitis, colon polyps, spinal stenosis )
Past Surgical History: Gynecological (hysterectomy), Orthopedic (TKA, thumb surgery), Urological (bladder sling) and Other (bowel perforation treated medically, rectocele repair, bladder sling )
Social History
Tobacco: Non-Smoker
Alcohol: None
Drug: None
Living: Alone
Employment: Retired
Family History
Family History: Other (no family hx GI problems)
Allergies / Home Medications
Allergy/AdvReac Type Severity Reaction Status Date / Time
codeine Allergy Nausea / Verified 09/19/24 16:32
Vomiting
house dust mite Allergy COUGHING Verified 09/19/24 16:32
morphine Allergy Severe Verified 09/19/24 16:32
Nausea /
Vomiting
�Medication �Instructions �Recorded
gabapentin 300 mg capsule 300 mg PO HS Neurological Condition 08/02/24
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
polyethylene glycol 3350 17 gram 17 g PO DAILY Gastrointestinal 08/20/24
oral powder packet (Miralax) Issue
acetaminophen 650 mg 325 mg PO BID 09/01/24
tablet,extended release
cyclobenzaprine 10 mg tablet 10 mg PO HSPRN PRN sleep 09/01/24
metoprolol succinate 50 mg 50 mg PO DAILY Blood Pressure 09/01/24
tablet,extended release 24 hr
docusate sodium 100 mg capsule 100 mg PO BID STOOL SOFTENER 09/02/24
amlodipine 2.5 mg tablet 2.5 mg PO QPM Blood Pressure 09/19/24
carboxymethylcellulose 0.5 1 drp BOTH EYES BID 09/19/24
%-glycerin 0.9 % eye drops
(Refresh Optive)
Review of Systems
-
History Source: Patient
Constitutional: Reports Weight Loss (few lbs with admission )
EENT: Reports No Symptoms
Respiratory: Reports No Symptoms
Cardiac: Reports No Symptoms
Abdomen/GI: Reports Abdominal Pain (with distention ) and Constipated (acute on chronic )
: Reports No Symptoms
Musculoskeletal: Reports Other (recent hip surgery )
Skin: Reports No Symptoms
Neurological: Reports Weakness
Endocrine: Reports No Symptoms
Hematologic/Lymphatic: Reports No Symptoms
Vital Signs
Temp Pulse Resp BP Pulse Ox
97.9 F 67 20 132/93 96
09/19/24 22:33 09/19/24 22:33 09/19/24 22:33 09/19/24 22:33 09/19/24 22:33
Physical Exam
Exam
General: Well Nourished and No Apparent Distress
HEENT: Normocephalic
Respiratory: Clear
Cardiac: Regular Rhythm
GI: Soft, Non Tender and Distended (mild)
Musculoskeletal: No Clubbing and No Cyanosis
Skin: Warm and Dry
Neuro: Awake, Alert and AO x 3
Psych: Calm
Results
WBC 8.8 10^3/uL (4.8-10.8) 09/20/24 05:22
Hgb 10.6 g/dL (12.0-16.0) L 09/20/24 05:22
Hct 31.9 % (37.0-47.0) L 09/20/24 05:22
MCV 82.0 fL (81.0-99.0) 09/20/24 05:22
Plt Count 411 10^3/uL (130-400) H 09/20/24 05:22
Absolute Neuts (auto) 6.7 10^3/uL (1.4-6.5) H 09/20/24 05:22
Sodium 128 mmol/L (135-145) L 09/20/24 05:22
Potassium 4.1 mmol/L (3.5-5.1) 09/20/24 05:22
Chloride 95 mmol/L (98-107) L 09/20/24 05:22
Carbon Dioxide 28 mmol/L (22-30) 09/20/24 05:22
BUN 14 mg/dl (7-17) 09/20/24 05:22
Creatinine 0.7 mg/dL (0.6-1.0) 09/20/24 05:22
Calcium 9.1 mg/dl (8.4-10.2) 09/20/24 05:22
Total Bilirubin 0.5 mg/dl (0.2-1.3) 09/20/24 05:22
AST 17 U/L (14-36) 09/20/24 05:22
ALT 18 U/L (0-35) 09/20/24 05:22
Alkaline Phosphatase 109 U/L (38-126) 09/20/24 05:22
Diagnostic Image Results:
09/19/24 CT a/p
Large volume stool in the right colon and transverse colon suggesting constipation. Nonspecific mild wall thickening of the descending colon and sigmoid colon, possibly secondary to bowel collapse versus an infectious or inflammatory colitis.
Slightly more localized wall thickening at the level of the splenic flexure. There was no evidence for an obstructing colonic mass at this location on the recent RF colon study from 09/05/2024. However, a follow-up colonoscopy is still recommended
for more complete evaluation if not recently performed.
09/07/24 - Abd 2 view
Colon is less distended than on the prior study, although it remains distended. Descending colon is decompressed
09/06/24 CR Obstruct Series W/pa Chest
Again noted is distention of the ascending colon, transverse colon, descending colon. Degree of distention is similar to the most recent prior study. Contrast enema exam did not reveal a mechanical obstruction in the colon. Findings therefore
consistent with colonic ileus. Much of the radiographic contrast material within the colon has been expelled since the contrast enema exam; this argues in favor of at least some colonic motility. Close follow-up abdominal radiographs recommended for
reevaluation
Clear lungs
09/05/24 barium enemia
1. No fluoroscopic evidence for obstructing colonic mass.
2. Moderate distention of the ascending, transverse, and descending colon.
3. Very redundant descending and sigmoid colon.
4. Mild to moderate diverticulosis in the sigmoid colon.
5. Severe multilevel lumbar discogenic degenerative disease and facet joint arthrosis.
6. Moderate right convex curvature of the upper lumbar spine.
09/04/24 Abd X ray
1. Dilute contrast material throughout the moderately distended ascending, transverse, and proximal descending colon.
2. No radiographic evidence for contrast material in the sigmoid colon or rectum.
3. No radiographic evidence for small bowel obstruction.
4. Severe multilevel lumbar discogenic degenerative disease.
5. Moderate right convex curvature of the midlumbar spine.
09/03/24- CT a/p with oral only
Small sliding hiatal hernia. Mild distal esophageal circumferential wall thickening, raising possibility of mild esophagitis in the proper clinical setting.
No obstructive uropathy. Renal cysts.
Mobile intraperitoneal cecum. Cecal distention secondary to gas and liquid feces. Liquid feces in the ascending colon and transverse colon. Probable segmental underdistention of the distal transverse colon, though it would be difficult to exclude
the possibility of circumferential wall thickening. Recommend follow-up colonoscopy. Minor diverticulosis of the descending colon without acute diverticulitis.
Moderate distention of the second and third segments of the duodenum with fluid and gas noted resulting in an air-fluid level. The fourth segment of the duodenum does not definitely appear to cross the midline, and may extend inferiorly into the
pelvis suggesting malrotation. However, not found on prior examination. If the patient displays clinical symptoms of small bowel obstruction, small bowel follow-through study may be considered for further evaluation.
Nonspecific mild pelvic ascites.
09/01/24- abd film
Small volume colonic stool, particularly in the right colon.
09/01/24 CXR
No acute cardiopulmonary process.
2020 CT Abd/pelvis Wo Iv Cont
IMPRESSION: Markedly limited study without intravenous contrast and with relative paucity of oral contrast.
Small bilateral pleural effusions with accompanying bilateral lower lobe subsegmental atelectasis. Cannot exclude bilateral lower lobe pneumonia.
Old granulomatous disease.
Air is seen in some mildly prominent loops of small bowel and some fluid and air seen throughout majority of large bowel without significant colonic distention, pattern of which could represent ileus.
Overall decreased colonic stool comparison to prior study. Redundant/overlapping sigmoid colon containing stool, limited without intravenous contrast. Stercoral colitis involving the sigmoid colon cannot be excluded. No free air.
Mild diffuse relative high attenuation of the cortex of the kidneys bilaterally which could represent 'delayed nephrogram' effect correlating with known markedly decreased renal function and recent prior intravenous contrast administration.
Additional nonurgent findings, as detailed above.
01/2021 CR Abdomen - 1 View
Distention of small and large bowel, air-filled. Findings may represent adynamic ileus or partial colonic obstruction.
Prior GI Procedures:
EGD: none
Colonoscopy: last 2014 [facility] recalls polyps
Assessment / Plan
-
Pt is a 88yo with hx afib, HTN, CKD, RA, constipation, osteoarthritis, sleep apnea, prior ileus, colon polyps, anemia, stercoral colitis, bladder sling, rectocele repair, bowel perforation treated medically , spinal stenosis with onset of
constipation. She had admission 09/01- 09/08 with constipation but also noted Na 125 and K 2.9. She has multiple radiology imaging studies with initial abd film small volume stool. She also completed oral contrast only CT which showed cecal
distention probable underdistention cannot rule out circumferential wall thickening, also with moderate distention of the duodenum with air-fluid levels, mild esophageal wall thickening. She then completed Gastrografin enema which showed no mass,
moderate distention in the colon, redundant colon, diverticulosis. Most likely suspect she has an ileus with eventual improvement on repeat X ray 09/07 with diet advancement and ot was discharged. She also reviewed for EGD with esophageal thickening
but study was held. On discharged she was recommended Miralax 17 grams daily, and colace BID. She now returns with right sided abdominal pain and no stools for [address] on admission with large volume stool right and transverse colon with
mild wall thickening of descending colon and sigmoid with possible bowel collapse vs infectious or inflammatory colitis and slight increased wall thickening at splenic flexure with follow up colonoscopy recommended. She was also noted with Na 127
with normal K of 4.1 on return.
-recurrent admission with abdominal pain with concern for right sided stool burden and colitis
-acute on chronic constipation- prior to admission
-recurrent hyponatremia
-recent hips surgery
-prior imaging with small HH and distal esophageal wall thickening
-hx prior ileus
-hx colon perforation after resection of large polyps treated medically
-hx stercoral colitis
other med problems:
-afib
-HTN
-CKD
-RA
-osteoarthritis
-sleep apnea
-anemia
-bladder sling
-rectocele repair
PLAN:
Pt with recent admission with concern for ileus in setting recurrent electrolyte imbalance and returns with abdominal pain with CT noted right stool burden and thickening of descending and sigmoid
pt denies stool but stool recorded in chart overnight
cont to corrrect Na per medical team -- agree with renal consult as recurrent issues
cont Miralax and colace BID
Recommend OOB/ambulate
clear diet as tolerated
monitor stool function
avoid narcotics
Monitor lytes replete prn
Pt would be agreeable to eventual outpatient colonoscopy if continued issues -- though recent BE stable
-
-
Thank you for consultation and allowing me to participate in the patient's care. Please call the acquisition associate GI physician during the after hours with any questions or concerns.
[2024-09-20 07:00] VITALS: BP 160/73
[2024-09-20] MEDS: REFRESH CELLUVISC GEL BOTH EYES (08:20)
[2024-09-20] MEDS: MIRALAX 17 GRAMS PO ×2 (08:21→20:02)
[2024-09-20] MEDS: TOPROL XL 50 MG PO (08:21)
[2024-09-20] MEDS: TYLENOL 325 MG PO ×2 (08:22→20:02)
[2024-09-20] MEDS: COLACE 100 MG PO ×2 (08:22→20:02)
[2024-09-20] MEDS: PLAQUENIL 300 MG PO (08:22)
[2024-09-20] MEDS: HEPARIN 5000 UNITS SC ×2 (08:24→20:03)
--- NOTE | 2024-09-20 10:50 | W.PN.HOSP.TC ---
Today's Communication/Plan
-
await Nephrology eval
continue bowel regimen per GI
PT/OT
Assessment / Plan
Assessment / Plan
Assessment:
Recurrent admission with abdominal pain with concern for right sided stool burden and colitis
Acute on chronic constipation, possible ileus in setting of hyponatremia
- GI consulted; continue Miralax/Colace BID
- diet: clears
- eventually will need OP Colonoscopy. previous GG enema without obstructive colonic mass
Recurrent hyponatremia
- consult Nephrology
- studies pending; previously TSH and Cortisol were ok
Essential HTN with urgency
- continue Amlodipine/Metoprolol
Recent left hip surgery
- PT/OT; posterior hip precautions for a total of at least 6 weeks with assist devices
- OP ortho f/u
Paroxysmal atrial fibrillation
- continue Metoprolol
- not on Eliquis for unclear reasons; will attempt to clarify
DVT ppx: SC heparin
Code: DNR/DNI
Anticipated Discharge: > 48 hours
Subjective/Interval History
-
Date of Service: September 20, 2024
resting comfortably, no complaints at present
Objective Data
-
Labs:
Laboratory Results
09/20/24
05:22
WBC 8.8
Hgb 10.6 L
Hct 31.9 L
Plt Count 411 H
Sodium 128 L
Potassium 4.1
Chloride 95 L
Carbon Dioxide 28
BUN 14
Creatinine 0.7
Glucose 109 H
Calcium 9.1
Total Bilirubin 0.5
AST 17
ALT 18
Alkaline Phosphatase 109
Vital Signs:
Vital Signs
Temp Pulse Resp BP Pulse Ox
97.5 F 78 16 160/73 99
09/20/24 07:00 09/20/24 08:21 07/03/25 07:00 09/20/24 08:21 09/20/24 07:00
I&O
09/19/24 09/20/24 09/21/24
06:59 06:59 06:59
Intake Total 120 / 120
Balance 120 / 120
Physical Exam
-
General: No Apparent Distress
HEENT: Normocephalic and Atraumatic
Respiratory: Negative Wheezes
Cardiac: Regular Rhythm and S1/S2
GI: Soft
Neuro: AO x 3
Psych: Calm
Data Reviewed
-
Total Time Spent with Patient (in minutes): 42
Labs: Labs Reviewed by me
--- NOTE | 2024-09-20 13:09 | CM ---
CM following re: discharge planning.
Reviewed pt's chart, met with pt.
Pt is an 88 year old female, admitted with primary dx of Recurrent constipation with likely associated stercoral colitis vs bowel collapse.
Pt reports she lives alone in a condo, 14 steps to enter, has 2 supportive children. Pt reports she has a walker, cane, shower chair, current with [facility]. Pt expressed her desire to return back home with resumptions of [facility] and family support. Pt
stated her son will be able to transport her hoe at discharge.
A referral to [facility] made.
PCP: Mike Miguel
Pharmacy: [facility]
D/c plan: home with resumptions of [facility] and family support. Son to transport at discharge.
CM will follow with discharge plan updates as hospitalization progresses
[2024-09-20 15:00] VITALS: BP 165/77
--- NOTE | 2024-09-20 15:15 | W.CON.NEPH ---
Consultation
-
Date/Time Consultation Requested: September 20, 2024 at 10 AM
Date/Time Consultation Performed: September 20, 2024 at 3 PM
Requesting Provider: Dr. Rhoades
Performing Provider: Dr. Linares
Reason for Consultation: Hyponatremia
Medical History
-
Chief Complaint: Hyponatremia
History of Present Illness:
88-year-old female past medical history of paroxysmal atrial fibrillation constipation, recent left hip surgery, hypertension, obstructive sleep apnea, rheumatoid arthritis, fibromyalgia, bladder sling, rectocele repair, prior bowel perforation
treated medically, osteoarthritis, osteopenia, presents with a constipation nausea vomiting abdominal pain she was here in the past for abdominal pain and concern for obstruction but that was ruled out. She has chronic constipation.
Renal consult for hyponatremia 127.
Sodium on last admission was in the high 120s
Past Medical History
Past medical history of paroxysmal atrial fibrillation constipation, recent left hip surgery, hypertension, obstructive sleep apnea, rheumatoid arthritis, fibromyalgia, bladder sling, rectocele repair, prior bowel perforation treated medically,
osteoarthritis, osteopenia,
Social History
Tobacco: Non-Smoker
Alcohol: None
Allergies / Home Medications
Allergy/AdvReac Type Severity Reaction Status Date / Time
codeine Allergy Nausea / Verified 09/19/24 16:32
Vomiting
house dust mite Allergy COUGHING Verified 09/19/24 16:32
morphine Allergy Severe Verified 09/19/24 16:32
Nausea /
Vomiting
�Medication �Instructions �Recorded �Confirmed �Type
gabapentin 300 mg capsule 300 mg PO HS Neurological Condition 08/02/24 09/19/24 History
hydroxychloroquine 200 mg tablet 300 mg PO DAILY Autoimmune Disorder 08/02/24 09/19/24 History
polyethylene glycol 3350 17 gram 17 g PO DAILY Gastrointestinal 08/20/24 09/19/24 History
oral powder packet (Miralax) Issue
acetaminophen 650 mg 325 mg PO BID Pain 09/01/24 09/19/24 History
tablet,extended release
cyclobenzaprine 10 mg tablet 10 mg PO HSPRN PRN sleep 09/01/24 09/19/24 History
metoprolol succinate 50 mg 50 mg PO DAILY Blood Pressure 09/01/24 09/19/24 History
tablet,extended release 24 hr
docusate sodium 100 mg capsule 100 mg PO BID STOOL SOFTENER 09/02/24 09/19/24 History
amlodipine 2.5 mg tablet 2.5 mg PO QPM Blood Pressure 09/19/24 09/19/24 History
carboxymethylcellulose 0.5 1 drp BOTH EYES BID Eye Condition 09/19/24 09/19/24 History
%-glycerin 0.9 % eye drops
(Refresh Optive)
Review of Systems
-
No nausea or vomiting or chest pain
All other systems: Negative unless noted
Physical Exam
Vital Signs
Vital Signs
Temp Pulse Resp BP Pulse Ox
97.5 F 78 16 160/73 99
09/20/24 07:00 09/20/24 08:21 09/20/24 07:00 09/20/24 08:21 09/20/24 11:49
Lab Results
WBC 8.8 10^3/uL (4.8-10.8) 09/20/24 05:22
RBC 3.89 10^6/uL (4.20-5.40) L 09/20/24 05:22
Hgb 10.6 g/dL (12.0-16.0) L 09/20/24 05:22
Hct 31.9 % (37.0-47.0) L 09/20/24 05:22
Plt Count 411 10^3/uL (130-400) H 09/20/24 05:22
Sodium 128 mmol/L (135-145) L 09/20/24 05:22
Potassium 4.1 mmol/L (3.5-5.1) 09/20/24 05:22
Chloride 95 mmol/L (98-107) L 09/20/24 05:22
Carbon Dioxide 28 mmol/L (22-30) 09/20/24 05:22
BUN 14 mg/dl (7-17) 09/20/24 05:22
Creatinine 0.7 mg/dL (0.6-1.0) 09/20/24 05:22
eGFR > 60.00 09/20/24 05:22
Glucose 109 mg/dl (70-99) H 09/20/24 05:22
Calcium 9.1 mg/dl (8.4-10.2) 09/20/24 05:22
Albumin 3.6 g/dl (3.5-5.0) 09/20/24 05:22
Physical Exam
General no acute distress
HEENT no cephalic atraumatic extraocular muscle intact no scleral icterus no JVD neck supple
lungs clear to auscultation bilateral
heart regular S1-S2 positive
abdomen soft nontender positive bowel sounds
extremities no edema pulses present bilateral
Neurologically nonfocal alert and oriented x 3
Skin no lesions no abrasions no petechiae
Psych normal affect no bizarre behavior
Data Reviewed
-
CT Scan: Image Personally Visualized and interpreted
Assessment/Plan
-
88-year-old female past medical history of paroxysmal atrial fibrillation constipation, recent left hip surgery, hypertension, obstructive sleep apnea, rheumatoid arthritis, fibromyalgia, bladder sling, rectocele repair, prior bowel perforation
treated medically, osteoarthritis, osteopenia, presents with a constipation nausea vomiting abdominal pain she was here in the past for abdominal pain and concern for obstruction but that was ruled out. She has chronic constipation.
Renal consult for hyponatremia 127.
Sodium on last admission was in the high 120s
Impression.
Hyponatremia.
CKD stage IIIa at baseline follows with Dr. Cabrera
Constipation.
Hypertension.
Sleep apnea.
Chronic pain.
Plan.
Urine studies from previous admission in the setting of hyponatremia showed a urine sodium of 38 with a urine osmole is 483 consistent with mild ADH elevation.
Fluid restrict
TSH within normal limits
Increase protein in her diet
Repeat urine indices
Pain control/constipation relief.
Avoid hypotonic solutions
Patient is asymptomatic no indication for 3% saline
Will give low-dose Samsca
[2024-09-20 16:38] VITALS: BP 165/77; PULSE 67; O2SAT 98
[2024-09-20] MEDS: SAMSCA 7.5 MG PO (16:54)
[2024-09-20] MEDS: NORVASC 2.5 MG PO (17:23)
[2024-09-20] MEDS: REFRESH CELLUVISC GEL 1 DROPS BOTH EYES (20:02)
[2024-09-20] MEDS: NEURONTIN 300 MG PO (21:07)
[2024-09-20] MEDS: FLEXERIL 10 MG PO (23:00)
[2024-09-20 23:12] VITALS: BP 159/83
[2024-09-21 07:00] VITALS: BP 164/82
[2024-09-21 07:22] LABS: Hematocrit 30.5 % (37.0-47.0); Hemoglobin 10.3 g/dL (12.0-16.0); Mean Corp Hgb Conc. 33.8 g/dL (33.0-37.0); Mean Corpuscular Volume 82.4 fL (81.0-99.0); Platelet Count 379 10^3/uL (130-400); Red Cell Dist. Width 13.5 % (11.5-14.5)
[2024-09-21] MEDS: MIRALAX 17 GRAMS PO (07:57)
[2024-09-21] MEDS: COLACE 100 MG PO (07:57)
[2024-09-21] MEDS: TYLENOL 325 MG PO ×2 (07:57→19:47)
[2024-09-21 07:58] LABS: Blood Urea Nitrogen 14 mg/dl (7-17); Calcium 9.2 mg/dl (8.4-10.2); Carbon Dioxide 26 mmol/L (22-30); Chloride 98 mmol/L (98-107); Estimated Creatinine Clearance 42 ml/min; Glucose 114 mg/dl (70-99); Potassium 3.8 mmol/L (3.5-5.1); Sodium 131 mmol/L (135-145); eGFR > 60.00
[2024-09-21] MEDS: REFRESH CELLUVISC GEL 1 DROPS BOTH EYES ×2 (07:58→19:46)
[2024-09-21] MEDS: PLAQUENIL 300 MG PO (07:58)
[2024-09-21] MEDS: HEPARIN 5000 UNITS SC ×2 (08:00→19:46)
[2024-09-21] MEDS: TOPROL XL 50 MG PO (08:01)
--- NOTE | 2024-09-21 08:06 | W.PN.GI.CBS2 ---
Addendum entered and electronically signed by Mary Conde DO 09/21/24 08:30:
The patient was seen and examined by me independently in collaboration with the nurse practitioner.
Past medical history/social history/medications/allergies/family history reviewed.
Lab data and imaging data reviewed.
Patient reports feeling slightly better today, small BM yesterday. Na improving to 131 today, would liek to try eating more.
Plan:
-advance to low residue diet with fluid restriction per renal
-add senna, give dose now and again HS in addition to miralax BID-- will review to see if we can offer her a better outpatient regimen, perhaps amitiza or motegrity
-OOB, ambulation
-monitor electrolytes
-t/c eventual outpatient colonoscopy
Original Note:
Today's Communication / Plan
-
Pt with recent admission with concern for ileus in setting recurrent electrolyte imbalance and returns with abdominal pain with CT noted right stool burden and thickening of descending and sigmoid
pt continues with constipation
appreciate renal input for persistent hyponatremia-- up to 131 today
tolerating clear diet will advance to low residue diet and reviewed with renal for 1200ml fluid restriction
cont Miralax and colace BID will add senna HS but give one dose now
Recommend OOB/ambulate
avoid narcotics
Monitor lytes replete prn
Pt would be agreeable to eventual outpatient colonoscopy if continued issues -- though recent BE stable
Assessment / Plan
-
Pt is a 88yo with hx afib, HTN, CKD, RA, constipation, osteoarthritis, sleep apnea, prior ileus, colon polyps, anemia, stercoral colitis, bladder sling, rectocele repair, bowel perforation treated medically , spinal stenosis with onset of
constipation. She had admission 09/01- 09/08 with constipation but also noted Na 125 and K 2.9. She has multiple radiology imaging studies with initial abd film small volume stool. She also completed oral contrast only CT which showed cecal
distention probable underdistention cannot rule out circumferential wall thickening, also with moderate distention of the duodenum with air-fluid levels, mild esophageal wall thickening. She then completed Gastrografin enema which showed no mass,
moderate distention in the colon, redundant colon, diverticulosis. Most likely suspect she has an ileus with eventual improvement on repeat X ray 09/07 with diet advancement and ot was discharged. She also reviewed for EGD with esophageal thickening
but study was held. On discharged she was recommended Miralax 17 grams daily, and colace BID. She now returns with right sided abdominal pain and no stools for [address] on admission with large volume stool right and transverse colon with
mild wall thickening of descending colon and sigmoid with possible bowel collapse vs infectious or inflammatory colitis and slight increased wall thickening at splenic flexure with follow up colonoscopy recommended. She was also noted with Na 127
with normal K of 4.1 on return.
-recurrent admission with abdominal pain with concern for right sided stool burden and colitis
-acute on chronic constipation- prior to admission
-recurrent hyponatremia
-recent hips surgery
-prior imaging with small HH and distal esophageal wall thickening
-hx prior ileus
-hx colon perforation after resection of large polyps treated medically
-hx stercoral colitis
other med problems:
-afib
-HTN
-CKD
-RA
-osteoarthritis
-sleep apnea
-anemia
-bladder sling
-rectocele repair
PLAN:
Pt with recent admission with concern for ileus in setting recurrent electrolyte imbalance and returns with abdominal pain with CT noted right stool burden and thickening of descending and sigmoid
pt continues with constipation
appreciate renal input for persistent hyponatremia-- up to 131 today
tolerating clear diet will advance to low residue diet and reviewed with renal for 1200ml fluid restriction
cont Miralax and colace BID will add senna HS but give one dose now
Recommend OOB/ambulate
avoid narcotics
Monitor lytes replete prn
Pt would be agreeable to eventual outpatient colonoscopy if continued issues -- though recent BE stable
Subjective
Subjective
Date of Service: September 21, 2024
Pt denies stools but 1 recorded on admission tolerating clear diet, minimal abdominal pain
Objective
Data Reviewed
Laboratory Data:
Laboratory Results
09/21/24 07:07
09/21/24 07:07
Laboratory Results
Total Bilirubin 0.5 mg/dl (0.2-1.3) 09/20/24 05:22
AST 17 U/L (14-36) 09/20/24 05:22
ALT 18 U/L (0-35) 09/20/24 05:22
Alkaline Phosphatase 109 U/L (38-126) 09/20/24 05:22
Vital Signs and I&O:
Vital Signs
Temp Pulse Resp BP Pulse Ox
97.6 F 75 16 164/82 99
09/21/24 07:00 09/21/24 08:01 09/21/24 07:00 09/21/24 08:01 09/21/24 07:00
I&O
09/20/24 09/21/24 09/22/24
06:59 06:59 06:59
Intake Total 120 / 120 1080 / 1080
Balance 120 / 120 1080 / 1080
Physical Exam
Physical Exam
HEENT: Anicteric and Moist mucous membranes
Cardiology: Normal Sinus Rhythm
Pulmonary: Clear
GI: Soft, Distended (mild ) and Non Tender
Extremities: No Edema
Neuro: Non Focal
[2024-09-21] MEDS: SENOKOT 17.2 MG PO (09:23)
--- NOTE | 2024-09-21 11:28 | W.PN.NEPH.PH ---
Today's Communication / Plan
-
FR
Assessment/Plan
-
88-year-old female past medical history of paroxysmal atrial fibrillation constipation, recent left hip surgery, hypertension, obstructive sleep apnea, rheumatoid arthritis, fibromyalgia, bladder sling, rectocele repair, prior bowel perforation
treated medically, osteoarthritis, osteopenia, presents with a constipation nausea vomiting abdominal pain she was here in the past for abdominal pain and concern for obstruction but that was ruled out. She has chronic constipation.
Renal consult for hyponatremia 127.
Sodium on last admission was in the high 120s
Impression.
Hyponatremia.
CKD stage IIIa at baseline follows with Dr. Cabrera
Constipation.
Hypertension.
Sleep apnea.
Chronic pain.
Plan.
follow BMP
FR continues
encourage po intake
bowel regimen per GI
samsca again today
-
-
Date of Service: September 21, 2024
CC / HPI / ROS
-
Chief Complaint:
hyponatremia
History of Present Illness:
Na up to 131 with samsca
BP high
slightly less constipated
Review of Systems:
no CP/SOB
Labs
-
Labs:
WBC 7.2 10^3/uL (4.8-10.8) 09/21/24 07:07
RBC 3.70 10^6/uL (4.20-5.40) L 09/21/24 07:07
Hgb 10.3 g/dL (12.0-16.0) L 09/21/24 07:07
Hct 30.5 % (37.0-47.0) L 09/21/24 07:07
Plt Count 379 10^3/uL (130-400) 09/21/24 07:07
Sodium 131 mmol/L (135-145) L 09/21/24 07:07
Potassium 3.8 mmol/L (3.5-5.1) 09/21/24 07:07
Chloride 98 mmol/L (98-107) 09/21/24 07:07
Carbon Dioxide 26 mmol/L (22-30) 09/21/24 07:07
BUN 14 mg/dl (7-17) 09/21/24 07:07
Creatinine 0.8 mg/dL (0.6-1.0) 09/21/24 07:07
eGFR > 60.00 09/21/24 07:07
Glucose 114 mg/dl (70-99) H 09/21/24 07:07
Calcium 9.2 mg/dl (8.4-10.2) 09/21/24 07:07
Albumin 3.6 g/dl (3.5-5.0) 09/20/24 05:22
Physical Exam
-
Vital Signs:
Vital Signs
Temp Pulse Resp BP Pulse Ox
97.6 F 75 16 164/82 99
09/21/24 07:00 09/21/24 08:01 09/21/24 07:00 09/21/24 08:01 09/21/24 07:00
Cardiovascular:: Regular rate and rhythm
Respiratory:: Bilateral: Coarse
Lung Excursion:: Normal
Abdomen:: Nontender and Soft
Bowel Sounds:: Normal
Extremity Edema:: None: Bilateral:
[2024-09-21] MEDS: SAMSCA 15 MG PO (11:54)
[2024-09-21 12:47] VITALS: BP 128/64
--- NOTE | 2024-09-21 13:19 | W.PN.HOSP.TC ---
Today's Communication/Plan
-
advance diet per GI
Samsca + OFR per renal
follow AM labs
Assessment / Plan
Assessment / Plan
Assessment:
Recurrent admission with abdominal pain with concern for right sided stool burden and colitis
Acute on chronic constipation, possible ileus in setting of hyponatremia
- GI consulted; continue Miralax/Colace BID, Senna
- diet: LRD + OFR
- eventually will need OP Colonoscopy. previous GG enema without obstructive colonic mass
Recurrent hyponatremia
- Nephrology consult appreciate
- studies suggestive of ADH excess
- s/p Samsca x 2; follow BMP
- oral fluid restriction
Essential HTN with urgency
- continue Amlodipine/Metoprolol
Recent left hip surgery
- PT/OT; posterior hip precautions for a total of at least 6 weeks with assist devices
- OP ortho f/u
Paroxysmal atrial fibrillation
- continue Metoprolol
- not on Eliquis for unclear reasons
DVT ppx: SC heparin
Code: DNR/DNI
Anticipated Discharge: Within 24 hours
Subjective/Interval History
-
Date of Service: September 21, 2024
resting comfortably, no complaints
small BM yesterday
Na 131
Objective Data
-
Labs:
Laboratory Results
09/21/24
07:07
WBC 7.2
Hgb 10.3 L
Hct 30.5 L
Plt Count 379
Sodium 131 L
Potassium 3.8
Chloride 98
Carbon Dioxide 26
BUN 14
Creatinine 0.8
Glucose 114 H
Calcium 9.2
Vital Signs:
Vital Signs
Temp Pulse Resp BP Pulse Ox
97.6 F 75 16 164/82 99
09/21/24 07:00 09/21/24 08:01 09/21/24 07:00 09/21/24 08:01 09/21/24 07:00
I&O
09/20/24 09/21/24 09/22/24
06:59 06:59 06:59
Intake Total 120 / 120 1080 / 1080
Balance 120 / 120 1080 / 1080
Physical Exam
-
General: No Apparent Distress
HEENT: Normocephalic and Atraumatic
Respiratory: Negative Wheezes
Cardiac: Regular Rhythm and S1/S2
GI: Soft
Genito-urinary: No Costovertebral Tender
Neuro: AO x 3
Psych: Calm
Data Reviewed
-
Total Time Spent with Patient (in minutes): 42
Labs: Labs Reviewed by me
[2024-09-21 15:00] VITALS: BP 113/52
[2024-09-21] MEDS: NORVASC 2.5 MG PO (17:44)
[2024-09-21] MEDS: COLACE PO (19:46)
[2024-09-21] MEDS: MIRALAX PO (19:46)
[2024-09-21] MEDS: NEURONTIN 300 MG PO (22:14)
[2024-09-21 23:20] VITALS: BP 104/58
[2024-09-22 07:05] LABS: Hematocrit 33.8 % (37.0-47.0); Hemoglobin 10.9 g/dL (12.0-16.0); Mean Corp Hgb Conc. 32.2 g/dL (33.0-37.0); Mean Corpuscular Volume 83.7 fL (81.0-99.0); Platelet Count 436 10^3/uL (130-400); Red Cell Dist. Width 13.7 % (11.5-14.5)
[2024-09-22 07:22] LABS: Blood Urea Nitrogen 17 mg/dl (7-17); Calcium 9.6 mg/dl (8.4-10.2); Carbon Dioxide 27 mmol/L (22-30); Chloride 98 mmol/L (98-107); Estimated Creatinine Clearance 33 ml/min; Glucose 120 mg/dl (70-99); Potassium 3.9 mmol/L (3.5-5.1); Sodium 134 mmol/L (135-145); eGFR 54.87
[2024-09-22 07:34] VITALS: BP 94/50
[2024-09-22] MEDS: REFRESH CELLUVISC GEL 1 DROPS BOTH EYES (08:52)
[2024-09-22] MEDS: PLAQUENIL 300 MG PO (08:57)
[2024-09-22] MEDS: HEPARIN 5000 UNITS SC (08:57)
[2024-09-22] MEDS: TYLENOL 325 MG PO (08:58)
[2024-09-22] MEDS: TOPROL XL PO (08:59)
--- NOTE | 2024-09-22 08:59 | W.PN.GI.CBS2 ---
Today's Communication / Plan
-
Na improved. Patient having bowel movements, increase home bowel regimen (outlined in note). Okay for d/c today from a GI perspective. Will sign off, please call with questions
Assessment / Plan
-
Pt is a 88yo with hx afib, HTN, CKD, RA, constipation, osteoarthritis, sleep apnea, prior ileus, colon polyps, anemia, stercoral colitis, bladder sling, rectocele repair, bowel perforation treated medically , spinal stenosis with onset of
constipation. She had admission 09/01- 09/08 with constipation but also noted Na 125 and K 2.9. She has multiple radiology imaging studies with initial abd film small volume stool. She also completed oral contrast only CT which showed cecal
distention probable underdistention cannot rule out circumferential wall thickening, also with moderate distention of the duodenum with air-fluid levels, mild esophageal wall thickening. She then completed Gastrografin enema which showed no mass,
moderate distention in the colon, redundant colon, diverticulosis. Most likely suspect she has an ileus with eventual improvement on repeat X ray 09/07 with diet advancement and ot was discharged. She also reviewed for EGD with esophageal thickening
but study was held. On discharged she was recommended Miralax 17 grams daily, and colace BID. She now returns with right sided abdominal pain and no stools for [address] on admission with large volume stool right and transverse colon with
mild wall thickening of descending colon and sigmoid with possible bowel collapse vs infectious or inflammatory colitis and slight increased wall thickening at splenic flexure with follow up colonoscopy recommended. She was also noted with Na 127
with normal K of 4.1 on return.
-recurrent admission with abdominal pain with concern for right sided stool burden and colitis
-acute on chronic constipation- prior to admission
-recurrent hyponatremia
-recent hips surgery
-prior imaging with small HH and distal esophageal wall thickening
-hx prior ileus
-hx colon perforation after resection of large polyps treated medically
-hx stercoral colitis
other med problems:
-afib
-HTN
-CKD
-RA
-osteoarthritis
-sleep apnea
-anemia
-bladder sling
-rectocele repair
PLAN:
-Pt with recent admission with concern for ileus in setting recurrent electrolyte imbalance and returns with abdominal pain with CT noted right stool burden and thickening of descending and sigmoid
-Constipation improving with multiple BMs overnight with increased bowel regimen
-advance diet with increase in fiber, fluid restriction per renal
-Na improved to 134
-okay for d/c today, recommend bowel regimen of Miralax BID, Senna 2 tabs qHs and colace
-Discussed above regimen with patient at length and she expressed understanding. She will call our office early next week if regimen not working, understanding that there is an intimate relationship between her electrolytes and her bowel function.
If needed, we can start Amitiza 8mcg BID. She prefers to hold on this and see if current regimen works for her at home
-outpatient f/u with Dr. Chan.
Subjective
Subjective
Date of Service: September 22, 2024
Patient reports multiple BMs overnight, feels better. Admits to really only taking miralax once daily at home prior to admission. Feels well enough for d/c today. Na improved to 134.
Objective
Data Reviewed
Laboratory Data:
Laboratory Results
09/22/24 06:22
09/22/24 06:22
Laboratory Results
Total Bilirubin 0.5 mg/dl (0.2-1.3) 09/20/24 05:22
AST 17 U/L (14-36) 09/20/24 05:22
ALT 18 U/L (0-35) 09/20/24 05:22
Alkaline Phosphatase 109 U/L (38-126) 09/20/24 05:22
Vital Signs and I&O:
Vital Signs
Temp Pulse Resp BP Pulse Ox
97.5 F 80 18 94/50 99
09/22/24 07:34 09/22/24 07:34 09/21/24 23:20 09/22/24 07:34 09/22/24 07:34
I&O
09/21/24 09/22/24 09/23/24
06:59 06:59 06:59
Intake Total 1080 / 1080 780 / 780
Balance 1080 / 1080 780 / 780
Physical Exam
Physical Exam
HEENT: Anicteric and Moist mucous membranes
Cardiology: Normal Sinus Rhythm
Pulmonary: Clear
GI: Soft, Distended (mild ) and Non Tender
Extremities: No Edema
Neuro: Non Focal
[2024-09-22] MEDS: MIRALAX PO (09:00)
[2024-09-22] MEDS: COLACE 100 MG PO (09:08)
--- NOTE | 2024-09-22 10:52 | W.PN.HOSP.TC ---
Today's Communication/Plan
-
dc home/VN
Assessment / Plan
Assessment / Plan
Assessment:
Recurrent admission with abdominal pain with concern for right sided stool burden and colitis
Acute on chronic constipation, possible ileus in setting of hyponatremia
- GI consulted; continue Miralax BID. Senna HS and Colace daily
- diet: LRD + OFR
- eventually will need OP Colonoscopy. previous GG enema without obstructive colonic mass
- f/u OP GI Dr. Chan
Recurrent hyponatremia
- Nephrology following
- studies suggestive of ADH excess
- s/p Samsca x 2; follow BMP
- oral fluid restriction 1.5L at discharge
Essential HTN with urgency
- continue Amlodipine/Metoprolol
Recent left hip surgery
- PT/OT; posterior hip precautions for a total of at least 6 weeks with assist devices
- OP ortho f/u
Paroxysmal atrial fibrillation
- continue Metoprolol
- not on Eliquis for unclear reasons
DVT ppx: SC heparin
Code: DNR/DNI
More than 30 minutes spent in discharge including
Final examination of the patient
Summarizing hospital stay
Instructions for continuing care to all relevant caregivers
Preparation of discharge records, prescriptions, and referral forms
Total time spent (in minutes):41
Anticipated Discharge: Today
Subjective/Interval History
-
Date of Service: September 22, 2024
resting comfortably, no complaints at present
Objective Data
-
Labs:
Laboratory Results
09/22/24
06:22
WBC 6.7
Hgb 10.9 L
Hct 33.8 L
Plt Count 436 H
Sodium 134 L
Potassium 3.9
Chloride 98
Carbon Dioxide 27
BUN 17
Creatinine 1.0
Glucose 120 H
Calcium 9.6
Vital Signs:
Vital Signs
Temp Pulse Resp BP Pulse Ox
97.5 F 80 18 94/50 99
09/22/24 07:34 09/22/24 08:59 09/21/24 23:20 09/22/24 08:59 09/22/24 09:52
I&O
09/21/24 09/22/24 09/23/24
06:59 06:59 06:59
Intake Total 1080 / 1080 780 / 780
Balance 1080 / 1080 780 / 780
Physical Exam
-
General: No Apparent Distress
HEENT: Normocephalic and Atraumatic
Respiratory: Negative Wheezes
Cardiac: Regular Rhythm and S1/S2
GI: Soft
Genito-urinary: No Costovertebral Tender
Musculoskeletal: No Edema
Neuro: AO x 3
Psych: Calm
Data Reviewed
-
Total Time Spent with Patient (in minutes): 41
Labs: Labs Reviewed by me
[2024-09-22 11:00] VITALS: BP 128/68
--- NOTE | 2024-09-22 11:17 | W.DS.TRANS ---
DC Summary - Kinesiotherapist
-
Discharge Instructions:
Discharge Diagnosis/Procedures Acute hyponatremia and constipation
Diet Low Residue
Additional Diets fluid restriction 1.5 L which is roughly
equivalent to 1/2 gallon
Activity As tolerated
Bathing Restrictions None
Other Services VN
Instructions:
Stand-Alone Forms:
Changes to Home Medications: No
Discharge Medications:
DC Medications w/original date entered in [employer]
gabapentin 300 mg capsule 300 mg PO HS Neurological Condition 08/02/24
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
acetaminophen 650 mg tablet,extended release 325 mg PO BID Pain 09/01/24
cyclobenzaprine 10 mg tablet 10 mg PO HSPRN PRN sleep 09/01/24
metoprolol succinate 50 mg tablet,extended release 24 hr 50 mg PO DAILY Blood Pressure 09/01/24
amlodipine 2.5 mg tablet 2.5 mg PO QPM Blood Pressure 09/19/24
carboxymethylcellulose 0.5 %-glycerin 0.9 % eye drops (Refresh Optive) 1 drp BOTH EYES BID Eye Condition 09/19/24
docusate sodium 100 mg capsule 100 mg PO BID STOOL SOFTENER #60 caps 09/22/24
polyethylene glycol 3350 17 gram oral powder packet 17 g PO BID #60 ea 09/22/24
sennosides 8.6 mg tablet (Jennifer-johnie) 17.2 mg (2 x 8.6 mg) PO HS #60 tabs 09/22/24
Home Medication Changes
Pending Results: No
Total time spent discharging patient (in min): 41
--- NOTE | 2024-09-22 11:36 | CM ---
Reviewed the chart notes and spoke with the patient at the bedside. IMM reviewed. Patient's son to transport patient home.
Plan: Discharge to home today with resumption of VN services. Referral sent in [facility].
--- NOTE | 2024-09-22 12:26 | W.PN.NEPH.PH ---
Today's Communication / Plan
-
dc
Assessment/Plan
-
88-year-old female past medical history of paroxysmal atrial fibrillation constipation, recent left hip surgery, hypertension, obstructive sleep apnea, rheumatoid arthritis, fibromyalgia, bladder sling, rectocele repair, prior bowel perforation
treated medically, osteoarthritis, osteopenia, presents with a constipation nausea vomiting abdominal pain she was here in the past for abdominal pain and concern for obstruction but that was ruled out. She has chronic constipation.
Renal consult for hyponatremia 127.
Sodium on last admission was in the high 120s
Impression.
Hyponatremia.
CKD stage IIIa at baseline follows with Dr. Cabrera
Constipation.
Hypertension.
Sleep apnea.
Chronic pain.
Plan.
follow BMP
FR continues 1200ml/day, d/w patient
encourage po intake
-
-
Date of Service: September 22, 2024
CC / HPI / ROS
-
Chief Complaint:
hyponatremia
History of Present Illness:
Na up to 134 with samsca
BP high
slightly less constipated
Review of Systems:
no CP/SOB
Labs
-
Labs:
WBC 6.7 10^3/uL (4.8-10.8) 09/22/24 06:22
RBC 4.04 10^6/uL (4.20-5.40) L 09/22/24 06:22
Hgb 10.9 g/dL (12.0-16.0) L 09/22/24 06:22
Hct 33.8 % (37.0-47.0) L 09/22/24 06:22
Plt Count 436 10^3/uL (130-400) H 09/22/24 06:22
Sodium 134 mmol/L (135-145) L 09/22/24 06:22
Potassium 3.9 mmol/L (3.5-5.1) 09/22/24 06:22
Chloride 98 mmol/L (98-107) 09/22/24 06:22
Carbon Dioxide 27 mmol/L (22-30) 09/22/24 06:22
BUN 17 mg/dl (7-17) 09/22/24 06:22
Creatinine 1.0 mg/dL (0.6-1.0) 09/22/24 06:22
eGFR 54.87 09/22/24 06:22
Glucose 120 mg/dl (70-99) H 09/22/24 06:22
Calcium 9.6 mg/dl (8.4-10.2) 09/22/24 06:22
Albumin 3.6 g/dl (3.5-5.0) 09/20/24 05:22
Physical Exam
-
Vital Signs:
Vital Signs
Temp Pulse Resp BP Pulse Ox
97.9 F 68 18 128/68 99
09/22/24 11:00 09/22/24 11:00 09/21/24 23:20 09/22/24 11:00 09/22/24 09:52
Cardiovascular:: Regular rate and rhythm
Respiratory:: Bilateral: CTA
Lung Excursion:: Normal
Abdomen:: Nontender and Soft
Bowel Sounds:: Normal
Extremity Edema:: None: Bilateral:
== END 2024-09-22 13:44 | disposition home health service (06) | DRG 641 ==
LOC: 2 NORTH 21:40
PROVIDERS: Physician Assistant Medical; ADMITTING PHYSICIAN Hospitalist; ATTENDING PHYSICIAN Internal Medicine; CONSULT PHYSICIAN Internal Medicine; CONSULT PHYSICIAN Internal Medicine Nephrology; EMERGENCY PHYSICIAN Student in an Organized Health Care Education/Training Program; FAMILY PHYSICIAN Internal Medicine
DX: E87.1 Hypo-osmolality and hyponatremia (principal); K56.7 Ileus, unspecified; J98.11 Atelectasis; I48.0 Paroxysmal atrial fibrillation; N18.31 Chronic kidney disease, stage 3a; I12.9 Hypertensive chronic kidney disease with stage 1 through stage 4 chronic kidney disease, or unspecified chronic kidney disease; Z88.5 Allergy status to narcotic agent; M06.9 Rheumatoid arthritis, unspecified; M79.7 Fibromyalgia; G47.33 Obstructive sleep apnea (adult) (pediatric); M85.80 Other specified disorders of bone density and structure, unspecified site; Z90.710 Acquired absence of both cervix and uterus; Z87.891 Personal history of nicotine dependence; D63.1 Anemia in chronic kidney disease; Z86.0100 Personal history of colon polyps, unspecified; M48.00 Spinal stenosis, site unspecified; Z66 Do not resuscitate; G89.29 Other chronic pain
CPT/HCPCS: 74177; 80048; 80053; 81003; 81015; 83930; 83935; 84300; 85025; 85027; 96360; 97162; 97166; 99285; Q9967

== ENCOUNTER → 2024-10-09 15:35 | Outpatient (REF) | payer MEDICARE, OTHER, SELFPAY ==
[2024-10-09 16:19] LABS: Albumin 4.0 g/dl (3.5-5.0); Blood Urea Nitrogen 27 mg/dl (7-17); Calcium 9.1 mg/dl (8.4-10.2); Carbon Dioxide 27 mmol/L (22-30); Chloride 99 mmol/L (98-107); Glucose 79 mg/dl (70-99); Potassium 4.1 mmol/L (3.5-5.1); Sodium 133 mmol/L (135-145); eGFR 48.94
== END ==
LOC: REG 15:35
PROVIDERS: ATTENDING PHYSICIAN Internal Medicine
DX: E87.1 Hypo-osmolality and hyponatremia (principal)
CPT/HCPCS: 36415; 80069

== ENCOUNTER 2024-10-18 14:21 | Outpatient (RCR) | payer MEDICARE, OTHER, SELFPAY | END 2024-10-18 23:59 | disposition home or self-care (01) | LOC: RPT 14:21 | PROVIDERS: ATTENDING PHYSICIAN Specialist; FAMILY PHYSICIAN Internal Medicine | DX: Z47.1 Aftercare following joint replacement surgery (principal); Z73.6 Limitation of activities due to disability; R26.2 Difficulty in walking, not elsewhere classified; M62.81 Muscle weakness (generalized); Z96.642 Presence of left artificial hip joint | CPT/HCPCS: 97010; 97110; 97162; 97530 ==

== ENCOUNTER → 2024-10-25 14:10 | Outpatient (REF) | payer MEDICARE, OTHER, SELFPAY ==
[2024-10-25 16:17] LABS: Albumin 4.2 g/dl (3.5-5.0); Blood Urea Nitrogen 28 mg/dl (7-17); Calcium 9.4 mg/dl (8.4-10.2); Carbon Dioxide 28 mmol/L (22-30); Chloride 99 mmol/L (98-107); Glucose 99 mg/dl (70-99); Potassium 4.7 mmol/L (3.5-5.1); Sodium 136 mmol/L (135-145); eGFR 40.05
== END ==
LOC: REG 14:10
PROVIDERS: ATTENDING PHYSICIAN Internal Medicine; FAMILY PHYSICIAN Internal Medicine
DX: D50.9 Iron deficiency anemia, unspecified (principal); D64.9 Anemia, unspecified; I10 Essential (primary) hypertension; N17.9 Acute kidney failure, unspecified
CPT/HCPCS: 36415; 80069

== ENCOUNTER → 2024-10-26 07:41 | Outpatient (REF) | payer MEDICARE, OTHER, SELFPAY | LOC: REG 07:41 | PROVIDERS: ATTENDING PHYSICIAN Internal Medicine; FAMILY PHYSICIAN Internal Medicine | DX: D50.9 Iron deficiency anemia, unspecified (principal); D64.9 Anemia, unspecified; I10 Essential (primary) hypertension; N17.9 Acute kidney failure, unspecified | CPT/HCPCS: 82570; 84156 ==

== ENCOUNTER 2024-11-15 12:57 | Outpatient (RCR) | payer MEDICARE, OTHER, SELFPAY | END 2024-11-15 23:59 | disposition home or self-care (01) | LOC: RPT 12:57 | PROVIDERS: ATTENDING PHYSICIAN Specialist; FAMILY PHYSICIAN Internal Medicine | DX: Z47.1 Aftercare following joint replacement surgery (principal); Z73.6 Limitation of activities due to disability; R26.2 Difficulty in walking, not elsewhere classified; M62.81 Muscle weakness (generalized); Z96.642 Presence of left artificial hip joint | CPT/HCPCS: 97010; 97110; 97530 ==

== ENCOUNTER 2024-11-29 14:12 | Emergency (ER) | payer MEDICARE, OTHER, SELFPAY ==
[2024-11-29 14:14] VITALS: BP 170/71
[2024-11-29] MEDS: TYLENOL 650 MG PO (15:49)
--- NOTE | 2024-11-29 18:20 | ED.GENMED ---
History of Present Illness
General
Chief Complaint: Fall
Source: patient
Exam Limitations: none
Time Seen by Provider: 11/29/24 14:59
Nursing documentation reviewed up to this point in time: agreed with
History of Present Illness
History of Present Illness:
Patient is an 88-year-old female who presents to the emergency department with persistent left thumb pain and swelling after mechanical fall on Tuesday. Patient states she tripped and fell Tuesday, falling forward and landing with her left hand
outstretched. She did sustain trauma to her head/face however denies any loss of consciousness.
Patient denies any headache or neck pain. No visual changes or changes in mental status. She denies any lingering dizziness or pain in lower extremities. She has been ambulating with her cane, which is her baseline. She denies any chest pain or
shortness of breath following fall. No back pain, numbness/tingling in lower extremities or weakness. She denies any saddle paresthesias or loss of bowel/bladder control.
Patient has not on any oral anticoagulation.
Patient's main concern is persistent swelling and pain in the left thumb.
Past History
Past History
ED Past Medical History: Other (Obstructive sleep apnea, fibromyalgia, osteoarthritis, osteopenia, spinal stenosis, cataracts, degenerative disc disease, cystocele, rectocele)
ED Past Surgical History: Gynecological (Hysterectomy), Urological (Bladder sling) and Other (Bowel perforation 2015)
Social History
Tobacco: Former smoker
Alcohol: None
Drug: None
Personal: Single
Living: alone
Review of Systems
Review of Systems
Allergies reviewed?: Yes
All Other Systems: ROS reviewed and negative except as documented in HPI and ROS
Phy Exam
Physical Exam
Physical Exam:
GENERAL: No acute distress
HEENT: Healing ecchymosis to right infraorbital region, extraocular muscles intact, no signs of entrapment, dentition intact, no other obvious trauma
NECK: no midline tenderness, normal range of motion, no other obvious trauma
BACK: no midline tenderness, no other obvious trauma
CHEST: no tenderness, no flail segment, no subcutaneous emphysema, no other obvious trauma
LUNGS: clear to auscultation bilaterally
CARDIOVASCULAR: regular rate and rhythm
ABDOMEN: soft, non-tender, no masses, no other obvious trauma
PELVIS: stable, no obvious injury
EXTREMITIES: Swelling and tenderness at distal aspect of left thumb with limited range of motion. Otherwise upper extremities and bilateral lower extremities atraumatic and nontender full range of motion. Distal pulses intact.
NEUROLOGIC: awake, alert x 3, no focal deficits
Course
Orders/Labs/Results
Orders:
Orders
11/29/24 14:16
Thumb/Finger(s) 2 View Lt [CR Finger(s)/thumb Min 2 Vw Lt] Urgent
Comment:
Reason For Exam: fell on tuesday l thumb swollen and painful
Indicate Which Finger:: Thumb
11/29/24 15:38
CT Head W/o Iv Contrast Urgent
Comment:
Reason For Exam: fall, head strike
Facial Bones wo Contrast CT [CT Facial Bones W/o Iv Contras] Urgent
Comment:
Reason For Exam: fall head strike
Acetaminophen [Tylenol] 650 mg PO NOW STA
11/29/24 15:48
Acetaminophen [Tylenol] 650 mg .ROUTE .STK-MED ONE
Vital Signs
Initial and Last Documented VS:
Initial Vital Signs
Temp Pulse Resp BP Pulse Ox
98.2 F 66 16 170/71 98
11/29/24 14:14 11/29/24 14:14 11/29/24 14:14 11/29/24 14:14 11/29/24 14:14
Last Documented Vital Signs
Temp Pulse Resp BP Pulse Ox
98.2 F 66 16 170/71 98
11/29/24 14:14 11/29/24 14:14 11/29/24 14:14 11/29/24 14:14 11/29/24 18:20
MDM/Problems Addressed
Differential Diagnosis Includes:
Not limited to: Finger fracture, finger contusion, facial bone fracture, intracerebral hemorrhage, concussion, etc.
MDM/Problems Addressed:
88-year-old female with history as documented presenting 4 days following mechanical fall with persistent left thumb swelling and pain. She did sustain minor head trauma during fall however denies any neurologic symptoms such as headache, vomiting,
changes in mental status, ambulatory dysfunction. She denies any injury to neck, back, or lower extremities. She is not on any oral anticoagulation.
Patient hypertensive, otherwise with stable vital signs. Physical exam as above. She has healing ecchymoses noted to right infraorbital area as well as swelling/tenderness of left first phalanx. No evidence of neck trauma or trauma to lower
extremities. She has neurologically intact and ambulating with assistance of cane which is her baseline. She has no neurologic findings concerning for cauda equina.
X-ray of left thumb was obtained prior to my evaluation which does reveal a nondisplaced fracture of the first distal phalanx.
Given evidence of facial trauma�will obtain CT head and facial bones. Will reassess after above.
Update: CT head/cervical spine without acute traumatic injuries. Left thumb placed in splint. Advised to follow-up with orthopedics for further evaluation. Discussed Tylenol for pain as well as ice and limiting range of motion. Strict return
precautions discussed. Patient stable for discharge home.
Chronic conditions affecting care:
Hypertension
Acute Exacerbation and/or Progression of Chronic Illness:
Acutely hypertensive
*Radiology
Radiology exam reviewed: preliminary read by ED provider (Fracture of distal aspect of first phalanx) and radiology read reviewed
*Pulse Oximetry
SaO2: 98
Oxygen Mode of Delivery: Room air
Patient hypoxic: no
*EKG
Interpreted by ED Provider?: NA
*Gm Mobile Interpretation
Rate: Gm Mobile- N/A
*Critical Care Note
Total Time (30-74mins, 75-104mins- exclusive of procedures): Not Applicable
ED Attending Note
-
Portions of this chart may have been created with voice recognition software.� Occasional wrong word or��sound alike� substitutions may have occurred due to the inherent limitations of voice recognition software.
Discharge Plan
Departure
Patient Disposition: Home (Routine Discharge)
Date of Disposition: 11/29/24
Time of Disposition: 17:22
Patient with high blood pressure during this ER visit?: Yes
Condition: Good
Discharge Problem:
Fall, Contusion of face, Fracture of thumb, left, closed
Instructions: Head Injury in Adults (DC), Contusion (DC), Finger Fracture ED, BLOOD PRESSURE
Prescriptions:
No Action
gabapentin 300 mg Capsule
300 mg PO HS
hydroxychloroquine 200 mg Tablet
300 mg PO DAILY
acetaminophen 650 mg Tablet Extended Release
325 mg PO BID
cyclobenzaprine 10 mg tablet
10 mg PO HSPRN PRN (Reason: sleep)
metoprolol succinate 50 MG tablet extended release 24 hr
50 mg PO DAILY
Refresh Optive 0.5-0.9 % Drops
1 drp BOTH EYES BID
amlodipine 2.5 mg tablet
2.5 mg PO QPM
sennosides [Jennifer-johnie] 8.6 mg Tablet
17.2 mg PO HS Qty: 60 0RF
polyethylene glycol 3350 17 gram Powder In Packet
17 g PO BID Qty: 60 0RF
docusate sodium 100 mg capsule
100 mg PO BID Qty: 60 0RF
Referrals:
UNKNOWN - PT DOES,NOT KNOW [Family Provider]
Adalberto Real MD [Active, Orthopedics] - Next open appointment
Activity Restrictions/Additional Instructions:
RETURN TO THE EMERGENCY DEPARTMENT ANY SEVERE HEADACHE OR NECK PAIN, VOMITING OR VISUAL CHANGES, CHANGES IN MENTAL STATUS OR DIZZINESS, NUMBNESS/TINGLING IN LEFT FINGER, WORSENING SYMPTOMS, OR ANY OTHER CONCERNS
- As discussed�the imaging of your head and facial bones showed no acute traumatic injuries. However�you were found to have a fracture of your left thumb. Please keep thumb in splint and avoid any movement of distal joint. Apply ice and take
Tylenol for pain. Follow-up with orthopedics for further evaluation/management
- Stay well-hydrated.
Monitor your symptoms closely and return to the emergency department with any acute worsening/new symptoms or any other concerns
Interventions
Interventions:
*Risk Screen - Suicide Last Done: 11/29/24 14:14
*Neglect/Abuse Screening Last Done: 11/29/24 14:14
*Nursing Disposition Last Done: 11/29/24 16:15
ED-Musculoskeletal Assessment Last Done: 11/29/24 16:15
ED- Neurological Assessment Last Done: 11/29/24 15:51
Discharge Date and Time
Discharge Date/Time: 11/29/24 17:34
Print Language: ALBANIAN
== END 2024-11-29 17:34 | disposition home or self-care (01) ==
LOC: EMR 14:12
PROVIDERS: EMERGENCY PHYSICIAN Emergency Medicine
DX: S00.11XA Contusion of right eyelid and periocular area, initial encounter (principal); S62.525A Nondisplaced fracture of distal phalanx of left thumb, initial encounter for closed fracture; I10 Essential (primary) hypertension; G47.33 Obstructive sleep apnea (adult) (pediatric); M79.7 Fibromyalgia; M19.90 Unspecified osteoarthritis, unspecified site; M85.80 Other specified disorders of bone density and structure, unspecified site; M51.9 Unspecified thoracic, thoracolumbar and lumbosacral intervertebral disc disorder; M48.00 Spinal stenosis, site unspecified; Z87.891 Personal history of nicotine dependence; W01.0XXA Fall on same level from slipping, tripping and stumbling without subsequent striking against object, initial encounter
CPT/HCPCS: 99284; 70450; 70486; 73140

== ENCOUNTER → 2024-12-04 14:13 | Outpatient (REF) | payer MEDICARE, OTHER, SELFPAY ==
[2024-12-04 15:24] LABS: Hematocrit 29.6 % (37.0-47.0); Hemoglobin 9.7 g/dL (12.0-16.0); Mean Corp Hgb Conc. 32.8 g/dL (33.0-37.0); Mean Corpuscular Volume 81.8 fL (81.0-99.0); Nucleated Red Blood Cells % 0 %; Platelet Count 305 10^3/uL (130-400); Red Cell Dist. Width 14.4 % (11.5-14.5); Reticulocyte Count 1.8 % (0.4-2.8)
[2024-12-04 15:47] LABS: ALT (SGPT) 21 U/L (0-35); AST (SGOT) 25 U/L (14-36); Albumin 4.4 g/dl (3.5-5.0); Alkaline Phosphatase 73 U/L (38-126); Blood Urea Nitrogen 27 mg/dl (7-17); Calcium 9.8 mg/dl (8.4-10.2); Carbon Dioxide 27 mmol/L (22-30); Chloride 101 mmol/L (98-107); Glucose 105 mg/dl (70-99); Iron 60 ug/dl (37-170); Potassium 4.5 mmol/L (3.5-5.1); Sodium 135 mmol/L (135-145); Total Protein 6.8 g/dl (6.3-8.2); eGFR 48.94
[2024-12-05 08:16] LABS: Glycohemoglobin (HgbA1c) 5.7 % (4.0-5.6)
== END ==
LOC: REG 14:13
PROVIDERS: ATTENDING PHYSICIAN Internal Medicine
DX: K52.9 Noninfective gastroenteritis and colitis, unspecified (principal); R10.13 Epigastric pain; E11.22 Type 2 diabetes mellitus with diabetic chronic kidney disease; N18.31 Chronic kidney disease, stage 3a
CPT/HCPCS: 36415; 80053; 83036; 83540; 85025; 85045

== ENCOUNTER 2024-12-18 13:24 | Outpatient (RCR) | payer MEDICARE, OTHER, SELFPAY | END 2024-12-18 23:59 | disposition home or self-care (01) | LOC: RPT 13:24 | PROVIDERS: ATTENDING PHYSICIAN Specialist; FAMILY PHYSICIAN Internal Medicine | DX: Z47.1 Aftercare following joint replacement surgery (principal); Z73.6 Limitation of activities due to disability; R26.2 Difficulty in walking, not elsewhere classified; M62.81 Muscle weakness (generalized); Z96.642 Presence of left artificial hip joint | CPT/HCPCS: 97110; 97116; 97530 ==

== ENCOUNTER → 2024-12-18 14:28 | Outpatient (REF) | payer MEDICARE, OTHER, SELFPAY ==
[2024-12-18 15:01] LABS: Hematocrit 31.4 % (37.0-47.0); Hemoglobin 9.9 g/dL (12.0-16.0); Mean Corp Hgb Conc. 31.5 g/dL (33.0-37.0); Mean Corpuscular Volume 82.4 fL (81.0-99.0); Nucleated Red Blood Cells % 0 %; Platelet Count 280 10^3/uL (130-400); Red Cell Dist. Width 14.2 % (11.5-14.5)
== END ==
LOC: REG 14:28
PROVIDERS: ATTENDING PHYSICIAN Internal Medicine
DX: D64.9 Anemia, unspecified (principal)
CPT/HCPCS: 36415; 85025

== ENCOUNTER 2025-01-17 13:01 | Outpatient (RCR) | payer MEDICARE, OTHER, SELFPAY | END 2025-01-17 23:59 | disposition home or self-care (01) | LOC: RPT 13:01 | PROVIDERS: ATTENDING PHYSICIAN Specialist; FAMILY PHYSICIAN Internal Medicine | DX: Z47.1 Aftercare following joint replacement surgery (principal); Z73.6 Limitation of activities due to disability; R26.2 Difficulty in walking, not elsewhere classified; M62.81 Muscle weakness (generalized); Z96.642 Presence of left artificial hip joint | CPT/HCPCS: 97110; 97116; 97530 ==

== ENCOUNTER 2025-02-11 07:04 | Outpatient (RCR) | payer MEDICARE, OTHER, SELFPAY | END 2025-02-11 23:59 | disposition home or self-care (01) | LOC: RPT 07:04 | PROVIDERS: ATTENDING PHYSICIAN Physician Assistant Medical; FAMILY PHYSICIAN Internal Medicine | DX: M25.512 Pain in left shoulder (principal); S46.012D Strain of muscle(s) and tendon(s) of the rotator cuff of left shoulder, subsequent encounter; Z73.6 Limitation of activities due to disability; W19.XXXD Unspecified fall, subsequent encounter | CPT/HCPCS: 97110; 97112; 97162 ==

== ENCOUNTER 2025-03-08 07:23 | Outpatient (RCR) | payer MEDICARE, OTHER, SELFPAY | END 2025-03-08 23:59 | disposition home or self-care (01) | LOC: RPT 07:23 | PROVIDERS: ATTENDING PHYSICIAN Physician Assistant Medical; FAMILY PHYSICIAN Internal Medicine | DX: M25.512 Pain in left shoulder (principal); S46.012D Strain of muscle(s) and tendon(s) of the rotator cuff of left shoulder, subsequent encounter; Z73.6 Limitation of activities due to disability; W19.XXXD Unspecified fall, subsequent encounter | CPT/HCPCS: 97010; 97110; 97112 ==

== ENCOUNTER → 2025-03-19 08:55 | Outpatient (REF) | payer MEDICARE, OTHER, SELFPAY ==
[2025-03-19 10:28] LABS: Hematocrit 35.4 % (37.0-47.0); Hemoglobin 11.3 g/dL (12.0-16.0); Mean Corp Hgb Conc. 31.9 g/dL (33.0-37.0); Mean Corpuscular Volume 81.9 fL (81.0-99.0); Nucleated Red Blood Cells % 0 %; Platelet Count 340 10^3/uL (130-400); Red Cell Dist. Width 14.0 % (11.5-14.5)
[2025-03-19 10:37] LABS: ALT (SGPT) 23 U/L (0-35); AST (SGOT) 28 U/L (14-36); Albumin 4.3 g/dl (3.5-5.0); Alkaline Phosphatase 77 U/L (38-126); Blood Urea Nitrogen 31 mg/dl (7-17); Calcium 9.5 mg/dl (8.4-10.2); Carbon Dioxide 29 mmol/L (22-30); Chloride 98 mmol/L (98-107); Glucose 91 mg/dl (70-99); Potassium 4.6 mmol/L (3.5-5.1); Sodium 134 mmol/L (135-145); Total Protein 7.1 g/dl (6.3-8.2); eGFR 48.63
[2025-03-19 10:51] LABS: Vitamin D, 25-OH*** 42.8 ng/mL (30-80)
== END ==
LOC: REG 08:55
PROVIDERS: ATTENDING PHYSICIAN Physician Assistant; FAMILY PHYSICIAN Internal Medicine
DX: M81.0 Age-related osteoporosis without current pathological fracture (principal); N18.9 Chronic kidney disease, unspecified
CPT/HCPCS: 36415; 80053; 82306; 85025